=== PATIENT | male | born 1955 | race Caucasian/White ===

== ENCOUNTER 2019-12-25 14:10 | Inpatient (IN) | payer MEDICARE, OTHER ==
[~2019-12-25] VITALS: Ht 185.4 cm; Wt 165.6 kg
[2019-12-25] MEDS ORDERED: ADULT LOW DOSE81 MG PO (15:31)
--- NOTE | 2019-12-25 20:00 | NUR ---
TECHNOLOGY STRATEGIST ROUNDING NOTE. SOIL FERTILITY EXTENSION SPECIALIST PROVIDED PT WITH SNASarkisWHICH BOX. PT SITS INDEPENDENTLY AT BEDSIDE, REPORTS THAT HE DOES NOT NEED ASSISTANCE IN PREPARING SANDWHICH. PT IS THANKFUL, DENIES NEEDS. CALL LIGHT IN REACH. WHITE BOARD UDPATED.
--- NOTE | 2019-12-25 22:13 | NUR ---
Awakes easily, turn self in bed, On room air, receivd Solumedrol and Coreg scheduled med, med info given. Pt on aerolized precautions. gets nebs. Tolerating fluids well, no n/v, ate sandwich box, 100%. tolerated well, voiding small amounts of md yellow colored urine in urinal, no c/o pain at this time.
--- NOTE | 2019-12-26 03:14 | NUR ---
RESTING, NO DISTRESS, TURNS SELF IN BED
--- NOTE | 2019-12-26 03:52 | NUR ---
resting, no distress, turns self in bed, on contact-aerosol precautions. call light at bedside
--- NOTE | 2019-12-26 06:28 | NUR ---
Pt slept all shift, on room air, coarse lung sounds auscultated, pt on aerosl/contact precautions, waiting on covid results. pt gets Solumedrol IV. voiding QS and tolerating QS fluids, filed start iv sl pulled accidentally by pt. elise L ac statrted in ED pt. edema of le no changes. pt morbidlyobese. stated he feels so myuch better as he walked to br w/o getting sob. bariatric bed ordered, waiting for delivery. pt alert and oriented
--- NOTE | 2019-12-26 06:45 | NUR ---
pt called to say new beriatric bed was too high, when in to see if I could lower it, bed seemed as low as it could go, charge nurse will follow up and see what she could do, left pt to relax in the chair for the time being
--- NOTE | 2019-12-26 07:42 | NUR ---
BEDSIDE REPORT RECEIVED. PT AWAKE USING URINAL DENIES NEEDS.
--- NOTE | 2019-12-26 09:00 | NUR ---
PT C/O SOB ASSISTED UP TO THE CHAIR FROM LAYING IN BED. SATS 92% ON ROOM AIR. PT AGREES HE IS BREATHING BETTER AGREES A NEB TREATMENT MAY BE HELPFUL. PO MEDICATIONS ADMINISTERED PT IS TALKING AND IN NO DISTRESS. R/T ARRIVES AND ADMINISTERES NEB
--- NOTE | 2019-12-26 09:55 | NUR ---
IN ROOM WITH PATIENT. WILL RETURN LATER.
--- NOTE | 2019-12-26 10:23 | NUR ---
PATIENT SITTING IN CHAIR. PATIENT SLIGHTLY IRRITATED THAT SO MANY PEOPLE WERE COMING INTO HIS ROOM. CALL LIGHT IN REACH. NO FURTHER NEEDS AT THIS TIME.
--- NOTE | 2019-12-26 12:59 | NUR ---
PT HAS REMAINED UP IN THE RECLINER THIS SHIFT. C/O NOT GETTING ALL THE FOOD HE WANTS. ASSISTED WITH DINNER ORDER, PT REQUESTS 2 FULL MEALS, 3 DESSERTS, DINNER ROLLS ETC ETC.... EDUCATION PROVIDED PT IS NOT RECEPTIVE.
--- NOTE | 2019-12-26 13:06 | NUR ---
PT ALERT, ORIENTED AND SITTING IN CHAIR WORKING ON COMPUTER. PT RECENTLY MOVED HERE TO BE NEAR FAMILY. PT THANKED ME FOR VISITING, REQUESTED PRAYER. LEFT A G POST
--- NOTE | 2019-12-26 14:20 | NUR ---
PATIENT IN CHAIR WATCHING TV. FRESH WATER GIVEN. CALL LIGHT IN REACH. NO FURTHER NEEDS AT THIS TIME.
[2019-12-26] MEDS ORDERED: DOXYCYCLINE HY100 MG PO (14:51)
[2019-12-26] MEDS ORDERED: NICOTINE PATCH1 EAC1 TD (14:51)
[2019-12-26] MEDS ORDERED: LISINOPRIL5 MG PO (14:52)
[2019-12-26] MEDS ORDERED: PROAIR HFA8.5 GM INH (14:52)
[2019-12-26] MEDS ORDERED: CARVEDILOL6.25 MG PO (14:52)
[2019-12-26] MEDS ORDERED: PREDNISONE20 MG PO (14:53)
--- NOTE | 2019-12-26 15:11 | NUR ---
DR AMATO IN TO SEE PT AGREES TO DC PER PT REQUEST.
--- NOTE | 2019-12-26 16:33 | EKG ---
[facility] [address] [facility] [place], [place] [address] Signed Sinus tachycardia with frequent premature ventricular complexes Anterolateral infarct , age undetermined Abnormal ECG Confirmed by MASOUD AMATO DO ([id number]) on 12/26/2019 4:33:24 PM Electronically Signed By: MASOUD AMATO DO 12/26/19 1633 PATIENT NAME: TY GAINES Electrocardiogram DATE OF : 55 PHYSICIAN: MASOUD AMATO DO REPORT #: [id number] REPORT IS CONFIDENTIAL AND NOT TO BE RELEASED WITHOUT AUTHORIZATION
--- NOTE | 2019-12-26 16:34 | EKG ---
[facility] [address] [facility] [place], [place] [address] Signed Sinus tachycardia Septal infarct (cited on or before 25-DEC-2019) Abnormal ECG When compared with ECG of 25-DEC-2019 14:15, (Unconfirmed) premature ventricular complexes are no longer present Confirmed by MASOUD AMATO DO ([id number]) on 12/26/2019 4:33:51 PM Electronically Signed By: MASOUD AMATO DO 12/26/19 1634 PATIENT NAME: TY GAINES Electrocardiogram DATE OF : 55 PHYSICIAN: MASOUD AMATO DO REPORT #: [id number] REPORT IS CONFIDENTIAL AND NOT TO BE RELEASED WITHOUT AUTHORIZATION
== END 2019-12-26 15:20 | disposition home or self-care (01) | DRG 189 ==
LOC: ED 14:10 → MS 17:34
PROVIDERS: ADMIT Student in an Organized Health Care Education/Training Program
DX: J96.01 Acute respiratory failure with hypoxia (principal); J44.1 Chronic obstructive pulmonary disease with (acute) exacerbation; I11.0 Hypertensive heart disease with heart failure; I50.9 Heart failure, unspecified; Z72.0 Tobacco use; Z79.82 Long term (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 aspirin; Z91.14 Patient's other noncompliance with medication regimen
CPT/HCPCS: 71045; 71260; 80048; 80053; 81001; 83605; 83735; 83880; 84484; 85025; 93005; 93010; 94640; 94660; 96374; 96375; 97162; 97165; 99285-25; C9803; J1650; J1940; J2930; Q9967

== ENCOUNTER 2019-12-28 03:57 | Inpatient (IN) | payer MEDICARE, OTHER ==
[~2019-12-28] VITALS: Ht 185.4 cm; Wt 165.6 kg
[~2019-12-28 03:57] MED LIST: ADULT LOW DOSE81 MG PO; CARVEDILOL6.25 MG PO; DOXYCYCLINE HY100 MG PO; LISINOPRIL5 MG PO; NICOTINE PATCH1 EAC1 TD; PREDNISONE20 MG PO; PROAIR HFA8.5 GM INH
--- OUTSIDE RECORDS SUMMARY | 2019-12-28 04:00 | XMS ---
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 - 2 Visits in 30 Days CARE PROVIDERS REHANA [facility] Current PHONE: [phone] Janki has no Care Guidelines for this patient. Jamel VISIT COUNT (12 MO.) 2 [facility] TOTAL 2 NOTE: Visits indicate total known visits. ED/UCC VISIT TRACKING (12 MO.) 12/28/2019 03:57 [facility] TYPE: Emergency COMPLAINT: - SOB/COUGH 12/25/2019 14:11 [facility] TYPE: Emergency COMPLAINT: - CHEST PAIN INPATIENT VISIT TRACKING (12 MO.) 12/25/2019 17:34 [facility] OR TYPE: Medical Surgical COMPLAINT: - HYPOXIA DIAGNOSES: - Patient's other noncompliance with medication regimen - Heart failure, unspecified - FPC (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 aspirin - Tobacco use - Acute respiratory failure with hypoxia - Hypertensive heart disease with heart failure - Heart failure, unspecified - Acute respiratory failure with hypoxia - Hypertensive heart disease with heart failure - Tobacco use - Patient's other noncompliance with medication regimen - 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
[2019-12-28] MEDS ORDERED: CHANTIX0.5 MG PO (11:14)
--- NOTE | 2019-12-28 14:38 | EKG ---
[facility] [address] [facility] [place] [address] Signed Normal sinus rhythm Septal infarct (cited on or before 25-DEC-2019) Abnormal ECG When compared with ECG of 25-DEC-2019 16:15, No significant change was found Confirmed by DAMON NEVILLE MD ([id number]) on 12/28/2019 2:38:35 PM Electronically Signed By: DAMON NEVILLE MD 12/28/19 1438 PATIENT NAME: TY GAINES Electrocardiogram DATE OF : 55 PHYSICIAN: DAMON NEVILLE MD REPORT #: [id number] REPORT IS CONFIDENTIAL AND NOT TO BE RELEASED WITHOUT AUTHORIZATION
--- NOTE | 2019-12-28 21:02 | PATH ---
[facility] [address] [facility] [place], [place] [address] Signed ORDERING PHYSICIAN: Elva Galvez MD PATIENT NAME: TY GAINES GENDER: Catherine : 1955 SPECIMEN(S): MOLECULAR PATHOLOGY RESULTS: SARS-CoV-2 Not Detected ADDITIONAL NOTES.: The [employer] Fusion SARS-CoV-2 Assay is a multiplex real-time PCR (RT-PCR) in vitro diagnostic test intended for the qualitative detection of RNA from SARS-CoV-2 from individuals who meet COVID-19 clinical and/or epidemiological criteria. In general, SARS-CoV-2 RNA can be detected during the acute phase of infection. Positive results indicate the presence of SARS-CoV-2 RNA. Clinical correlation with patient history and other diagnostic information is necessary to determine patient infection status. Positive results do not rule out bacterial infection or co-infection with other viruses. Negative results do not preclude SARS-CoV-2 infection and should not be used as the sole basis for patient management decisions. Negative results must be combined with other clinical observations, patient history, and epidemiological information. The [employer] Fusion SARS-CoV-2 Assay is not yet approved or cleared by the [place] FDA. When there are no FDA-approved or cleared tests available, and other criteria are met, FDA can make tests available under an emergency access mechanism called an Emergency Use Authorization (EUA). The EUA for this test is supported by the Needle Loom Operator of Health and Human Service's (HHS's) declaration that circumstances exist to justify the emergency use of in vitro diagnostics for the detection and/or diagnosis of the virus that causes COVID-19. This EUA will remain in effect for the duration of the COVID-19 declaration justifying emergency of IVDs, unless it is terminated or revoked by FDA, after which the test may no longer be used. The [employer] Fusion SARS-CoV-2 Assay is for use only under EUA in US laboratories certified under the Clinical Laboratory Improvement Amendments of 1988 (CLIA) to perform high complexity tests. [facility] is certified under CLIA to perform high complexity PATIENT NAME: TY GAINES PATHOLOGY DATE OF : 55 REPORT #: [id number] PHYSICIAN: JIA PATHOLOGY PCP: DANIELITO HIGHTOWER MD REPORT IS CONFIDENTIAL AND NOT TO BE RELEASED WITHOUT AUTHORIZATION [facility] [address] [place] [id number] Signed clinical laboratory testing. PERFORMING LABORATORY.: Molecular testing was performed by [facility] [place] [address] (Chief Knowledge Officer: Sanjeev Handy D.O.; CLIA#: [id number]) Diagnostician: System Interface Pathologist Electronically Signed 12/28/2019 Copies: ~ PATIENT NAME: TY GAINES PATHOLOGY DATE OF : 55 REPORT #: [id number] PHYSICIAN: JIA PATHOLOGY PCP: DANIELITO HIGHTOWER MD REPORT IS CONFIDENTIAL AND NOT TO BE RELEASED WITHOUT AUTHORIZATION
--- NOTE | 2019-12-29 16:11 | EKG ---
[facility] [address] [facility] [place], [place] [address] Signed Normal sinus rhythm with sinus arrhythmia Septal infarct (cited on or before 25-DEC-2019) Abnormal ECG When compared with ECG of 28-DEC-2019 04:10, No significant change was found Confirmed by DAMON NEVILLE MD ([id number]) on 12/29/2019 4:11:37 PM Electronically Signed By: DAMON NEVILLE MD 12/29/19 1611 PATIENT NAME: TY GAINES Electrocardiogram DATE OF : 55 PHYSICIAN: DAMON NEVILLE MD REPORT #: [id number] REPORT IS CONFIDENTIAL AND NOT TO BE RELEASED WITHOUT AUTHORIZATION
--- NOTE | 2019-12-30 06:10 | EKG ---
[facility] [address] [facility] [place], [place] [address] Signed Normal sinus rhythm Septal infarct (cited on or before 25-DEC-2019) Abnormal ECG When compared with ECG of 29-DEC-2019 14:13, (Unconfirmed) No significant change was found Confirmed by DAMON NEVILLE MD ([id number]) on 12/30/2019 6:10:45 AM Electronically Signed By: DAMON NEVILLE MD 12/30/19 0610 PATIENT NAME: TY GAINES Electrocardiogram DATE OF : 55 PHYSICIAN: DAMON NEVILLE MD REPORT #: [id number] REPORT IS CONFIDENTIAL AND NOT TO BE RELEASED WITHOUT AUTHORIZATION
[2020-01-02] MEDS ORDERED: PREDNISONE20 MG PO (12:09)
[2020-01-02] MEDS ORDERED: IPRAT-ALBUT 0.5-3 ML INH (12:10)
[2020-01-02] MEDS ORDERED: AEROECLIPSE II1 EACH MISC (13:36)
== END 2020-01-02 13:19 | disposition home or self-care (01) | DRG 191 ==
LOC: ED 03:57 → MS 03:58
PROVIDERS: ADMIT Internal Medicine
DX: J43.9 Emphysema, unspecified (principal); I47.2 Ventricular tachycardia; Z68.42 Body mass index [BMI] 45.0-49.9, adult; Z20.828 Contact with and (suspected) exposure to other viral communicable diseases; E66.01 Morbid (severe) obesity due to excess calories; F17.200 Nicotine dependence, unspecified, uncomplicated; I11.0 Hypertensive heart disease with heart failure; I50.9 Heart failure, unspecified; R07.9 Chest pain, unspecified; Z74.09 Other reduced mobility; Z91.14 Patient's other noncompliance with medication regimen; Z79.899 Other long term (current) drug therapy; Z79.82 Long term (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 aspirin; Z79.52 Long term (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 systemic steroids
CPT/HCPCS: 36415; 71045; 80048; 80053; 81001; 82803; 83735; 83880; 84484; 85025; 93005; 93010; 93306; 94640; 94644; 94664; 94667; 94668; 94760; 96374; 99285-25; 99406; A9270; C9803; J1650; J2060; J2270; J2920

== ENCOUNTER 2021-09-07 15:04 | Inpatient (IN) | payer MEDICARE ==
[~2021-09-07] VITALS: Ht 185.4 cm; Wt 168.3 kg
[~2021-09-07 15:04] MED LIST changes: +AEROECLIPSE II1 EACH MISC; +CHANTIX0.5 MG PO; +IPRAT-ALBUT 0.5-3 ML INH
--- NOTE | 2021-09-07 18:47 | NUR ---
PATIENT ADMITTED TO CCU VIA STRETCHER FROM ER AT 1810 FOR A COPD EXAC. PT ARRIVES ON BIPAP OF 18/8 AND 28%. PT ABLE TO PIVOT SELF FROM STRETCHER AND SIT ON CCU BED. PT DOES HAVE TO MOVE SLOWLY DUE TO SOB. LUNG SOUNDS REVEAL EXP WHEEZING THROUGHOUT AND DIMINISHED NOISES. PT HAS NOTABLE 2+ EDEMA IN LOWER LEGS. PT TO RECEIVE IV VIBRAMYCIN. BPs ELEVATED ON ADMIT AND DR. NEVILLE NOTIFIED. PT STATES HE HASN'T BEEN TAKING HIS COREG IN THE LAST COUPLE OF MONTHS DUE TO FINANCIAL DIFFICULTIES. PT STATES HE LIVES ALONE. PT ATTEMPTS TO EAT BUT IS TOO SHORT OF BREATH TO HAVE BIPAP OFF FOR MORE THAN 2 MINUTES AT A TIME. CALL LIGHT WITHIN REACH AND PLANOF CARE DISCUSSED.
--- NOTE | 2021-09-07 20:00 | NUR ---
ARRIVED TO SHIFT, RECIEVED REPORT FROM DAY SHIFT, FOCUSED ASSESSMENT COMPLETED, MEDS, LABS, AND ORDERS REVIEWED, HEAD TO TOE ASSESSMENT COMPLETED, DR NEVILLE CALL PREVIOUSLY TO REQUEST A NICOTINE PATCH FOR PT, RT IN WITH PT, PT ABLE TO MAINTAIN OXYGEN SATURATION ON 5 LPM 02 VIA NASAL CANNULA HOWEVER APPEARS ANXIOUS AND REQUESTING HIGHER AIR FLOW. EDUCATIONS PROVIDED TO PT FROM RN AND RT REGARDING OXYGEN REQUIREMENTS AND MEDICAITONS
--- NOTE | 2021-09-07 21:46 | NUR ---
PT CALLED REQUESTING BREATHING TREATMENT, RT NOTIFIED, PT STATES HE IS UNABLE TO SLEEP IN THE BED IS AND NEEDS TO SIT UP MORE IN ORDER TO FEEL LIKE HE CAN BREATHE. PT CURRENTLY SITTING ON EDGE OF BED AND LEANING OVER ON BEDSIDE TABLE.
--- NOTE | 2021-09-07 23:15 | NUR ---
PT RESTING ON SIDE OF BED, RN ASKED PT IF HE WANTED ASSISTANCE FINDING A MORE COMFORTABLE POSITION IN BED. PT REFUSED, STATES THIS IS THE ONLY WAY HE FEELS COMFORTABLE. ADDITIONAL PILLOWS PROVIDED FOR BEDSIDE TABLE TO HELP PT POSITION SELF COMFORTABLY.
--- NOTE | 2021-09-08 01:45 | NUR ---
PT SITTING UP IN BED, REQUESTING FOOD, PUDDING OFFERED TO PT, PT ATE 100% OF IT. TOLERATED BEING ON NASAL CANNULA AND OXYMASK WHILE EATING WELL
--- NOTE | 2021-09-08 02:41 | NUR ---
PT REMAINS ON OXYMASK AND NASAL CANNULA, MULTIPLE REQUESTS FOR SNACKS, PT ABLE TO EAT THEM WITHOUT ISSUE, SIDE RAIL X 3 RAISED, CALL LIGHT WITHIN REACH
--- NOTE | 2021-09-08 02:50 | NUR ---
PT PLACED BACK ON BIPAP
--- NOTE | 2021-09-08 03:24 | NUR ---
PT REQUESTING ANOTHER SNACK, TAKEN OFF BIPAP AND PLACED ON NASAL CANNULA/OXYMASK COMBO, VANILLA PUDDING PROVIDED
--- NOTE | 2021-09-08 04:13 | NUR ---
PT PLACED BACK ON BIPAP AND GIVEN WARM BLANKETS
--- NOTE | 2021-09-08 05:53 | NUR ---
PT TOOK OFF BIPAP, EDUCATED TO PLEASE CALL PRIOR TO TAKING OFF UNLESS FOR EMERGENCY SUCH VOMITTING. PT PLACED ON NASAL CANNULA AND OXYMASK COMBO
--- NOTE | 2021-09-08 06:13 | NUR ---
PT HAD UNEVENTFULL NIGHT, WAS ABLE TO VOID BY SELF TO BSC, TOLERATED BIPAP AND NASAL CANNULA/OXYMASK COMBO WELL. INCREASED OXYGEN NEEDS AT THIS TIME ARE PARTLY FOR PATIENT COMFORT/PEACE OF MIND. WILL ATTEMPT TO TITRATE DOWN ONCE PT IS LESS ANXIOUS AND ABLE TO TOLERATE BETTER. PT STILL HAS WHEEZES HOWEVER SOUNDS SIGNIFICANTLY BETTER THAN AT THE START OF MY SHIFT. BREAKFAST WAS ORDERED, LABS REVIEWED, MEDS GIVEN PER JUL, PT SITTING ON SIDE OF BED COMFORTABLY WITH NASAL CANNULA/OXYMASK COMBO, CALL LIGHT WITHIN REACH, AWAITING DAY SHIFT TO GIVE REPORT
[2021-09-08] MEDS ORDERED: VENTOLIN HFA18 GM INH (07:31)
--- NOTE | 2021-09-08 08:30 | NUR ---
IN PT ROOM AFTER RECEIVING REPORT AND TO PERFORM MORNING ASSESSMENT. PT IS SITTING UP IN BED ON LAPTOP. PT FEELING NAUSEOUS BECAUSE HE IS SO HUNGRY, BROUGHT A DIET SPRITE WHICH RELIEVED NAUSEA. PT RR 18 AND WHEEZES PRESENT IN LUNGS UPPER AND LOWER BILAT. PT HAS NC ON RUNNING AT 5 L AND USES OXYMASK PRN. PULSES PRESENT RADIALLY BUT NOT PEDAL DUE TO SWELLING. SKIN IS DRY BUT WARM. PT OXYGEN REMAINS IN 90'S ON NC. D5 1/2 NS RUNNING AT 75 ML/HR IN PATENT LAC. PT SITTING UP IN BED WAITING FOR BREAKFAST, CALL LIGHT WITHIN REACH, WILL CONTINUE TO MONITOR.
--- NOTE | 2021-09-08 10:16 | NUR ---
ASSISTED PT TO USE URINAL, VOIDED 120 ML INTO BEDSIDE COMMODE. PT USED OYMASK AND NC WHILE URINATING DUE TO SOB. PT IS NOW RESTING IN BED AND REQUESTS TO USE BIPAP. O2 SATS READ 100% AND RR 21. CALL LIGHT IS WITHIN REACH, WILL CONTINUE TO MONITOR.
--- NOTE | 2021-09-08 11:55 | NUR ---
CASE MANAGEMENT IN SPEAKING WITH PT. PT CURRENTLY WEARING NC ON 5 L AND OXYMASK ON AT 15 L. GAVE REPORT TO [facility] NURSE, PT IS TRANSFERRING TO FLOOR. PT IS SALINE LOCKED, ON TELEMETRY, AND PERSONAL ITEMS ARE ON TABLE. PT WILL BE TRANSFERRED IN BED.
--- NOTE | 2021-09-08 12:15 | NUR ---
Patient arrived from the unit, VSS, arrived with 5L BNC with 15l Oxymask. Assessment completed, VSS, patient requested the oxymask only at this time. Friend Rajwinder at bedside requesting MD if available. Notified MD and she will as soon as she can.
--- NOTE | 2021-09-08 15:00 | NUR ---
ROUNDED ON PATIENT, HE IS ASLEEP. WILL WAIT TO GIVE MEDICATIONS TILL HE WAKES. RESPIRATION AT 20, APPEARS TO BE IN NO ACUTE DISTRESS AT THIS TIME.
--- NOTE | 2021-09-08 15:00 | NUR ---
patient laying on his left side, requesting for his room temperature to be lowered. lowered temp to 69 per the patient's request. Lights are off, and he is requesting to rest at this time.
--- NOTE | 2021-09-08 17:51 | NUR ---
ANTIBIOTIC STARTED, NEW TUBING. PATIENT ON THE COMPUTER, IN NO ACUTE DISTRESS.
--- NOTE | 2021-09-08 18:11 | NUR ---
PATIENT EATING DINNER AT THIS TIME, HE COMPLETED HIS AA MEETING ONLINE, AND IS VERY APPRECIATIVE OF THE INTERNET TO BE ABLE TO DO SO.
--- NOTE | 2021-09-08 18:30 | NUR ---
patient up to the bathroom, urinated x1, oxygen needed on return.
--- NOTE | 2021-09-08 19:45 | NUR ---
REPORT RECEIVED FROM СЕРГЕЙ ROACH. pt SITTING UP AT SIDE OF BED. ON RA. COMPLAINS OF SOME SOB AFTER AMBULATING BACK FROM RESTROOM, REFUSES OXYGEN USE AT THIS TIME. HR SR ON TELE 7. CALL LIGHT IN REACH. IV SL BY СЕРГЕЙ ROACH AT THIS TIME.
--- NOTE | 2021-09-08 19:50 | NUR ---
2 CHOCOLATE PUDDING PROVIDED.
--- NOTE | 2021-09-08 20:00 | NUR ---
SBA. PATIENT REFUSED TO HAVE SOCKS ON AND O2 ON GOING TO THE BATHROOM. WHEN PATIENT WAS BACK IN BED HE STATED I NEED TO PUT THE MASK ON ON 2L. AFTER A MINUTE AND A HALF HE TOOK IT OFF OF HIS FACE STATED I AM OKAY NOW. LUCILLE RUSHING NOTIFIED.
--- NOTE | 2021-09-08 21:40 | NUR ---
SBA TO THE BATHROOM WITH O2 ON. PATIENT IS BACK IN BED SITTING AT THE EDGE OF THE BED. VANILLA PUDDING PROVIDED PER REQUEST.
--- NOTE | 2021-09-08 22:25 | NUR ---
pt RESTING IN BED AWAKE. SPO2 93% ON RA AFTER AMBULATING TO RESTROOM. pt INSISENT ON MORPHINE ADMINISTRATION FOR SOB "IT REALLY HELPED ME REST, I CAN'T SLEEP WHEN I CAN'T BREATHE". RT BERNARD RECOMMENDED PRN MORPHINE ADMINISTRATION. MEDICATION ADMINISTERED AT THIS TIME. PRN SLEEP MEDICATION ADMINISTERED. ASSESSMENT COMPLETE. pt REQUESTING TOE NAILS CLIPPED. EDUCATED pt ON HOSPITAL POLICY, INFECTION PREVENTION. PUDDING PROVIDED REQUESTED. LIGHTS OFF IN ROOM. CALL LIGHT IN REACH.
--- NOTE | 2021-09-08 23:32 | NUR ---
COMMITTEE MEMBER IN ROOM. pt CONTINUES TO COMPLAIN THAT MEDICATIONS ARE NOT HELPING HIM SLEEP. PHONE CALL TO MD. TELEPHONE ORDER RECEIVED AND REPEATED BACK. EMAR UPDATED.
--- NOTE | 2021-09-08 23:47 | NUR ---
pt SITTING UP AT SIDE OF BED. SCHEDULED SLEEP MEDICATION ADMINISTERED, EDUCATION PROVIDED. pt DENIES ADDITIONAL NEEDS. CALL LIGHT IN REACH.
--- NOTE | 2021-09-09 00:46 | NUR ---
CALL LIGHT ANSWERED. 1PA TO ASSIST pt WITH LEGS OUT OF HOSPITAL BED, INDEPENDENT TO RESTROOM FOR VOID. TITRATED OXYGEN TO 6L NC WITH AMBULATION. pt BACK IN BED. LABORED BREATHING NOTED. OXYGEN TITRATED BACK TO 2L AT REST. CALL LIGHT IN REACH.
--- NOTE | 2021-09-09 02:00 | NUR ---
SANDWICH BOX PROVIDED BY ALEJANDRO RUSHING. pt SITTING UP IN BED AWAKE. ON RA. NO DISTRESS NOTED.
--- NOTE | 2021-09-09 02:15 | NUR ---
PT CALLED, NEEDED TO USE BATHROOM. WANTED RN TO "PULL HIM UP OUT OF BED", SUGGESTED OTHER WAYS TO GET SELF OUT OF BED, THIS RN WAS UNABLE TO PULL HIM UP. USED THE BEDSIDE STAND, HE LEANED AGAINST IT AND WAS ABLE TO GET SELF TO SETTING POSITION. RESTED, USED NC TO AMBULATE TO BATHROOM. VOIDED, UNMEASURED, BACK TO BED, NC IN PLACE, HE NOTICED THE BEDSIDE TABLE WAS AWAY FROM HIM, SAID OH NO YOU DON'T, AND PULLED TABLE BACK TOWARD HIS BED, AND THIS RN ASKED IF HE WANTED TO SIT ON EDGE OF BED FOR A BIT, HE SAID YES. THIS RN LEFT ROOM, CALL LIGHT WITHIN REACH, PT WAS SL LABORED BREATHING, STATED HE NEEDED TO SIT AND THEN WILL GET INTO BED.
--- NOTE | 2021-09-09 02:30 | NUR ---
HEARD LOUD VOICE OUT OF ROOM 113, PT SITTING ON EDGE BREATHING LABORED, OXIMASK PLACED, TURNED TO WHERE "PT COULD FEEL THE AIR COMING OUT", SATS 100%, SAT WITH PT, THEN PT REQUESTED RT. THIS RN LEFT ROOM AND CALLED RT, AND REPORTED TO PT PRIMARY RN DOMINGO, THAT PT WAS HAVING SOB. RN BACK INTO PT ROOM, SAT WITH HIM, AND AFTER A MIN OR SO HE SAID "TURN THAT DOWN, I DON'T WANT MY LUNGS TO BLOW UP. EDUCATED THAT THE OXIMASK WOULD NOT CAUSE HIS LUNGS TO "BLOW UP", BUT OXIMASK TURNED DOWN, PER HIS REQUEST.
--- NOTE | 2021-09-09 02:40 | NUR ---
NOTIFIED BY SEO EXECUTIVE THAT pt SOB AFTER AMBULATING TO RESTROOM. LABORED BREATHING NOTED. pt SITTING UP AT SIDE OF BED ON 2L OXYGEN BY NC WHEN RN ENTERS ROOM. SPO2 100%. PRN MORPHINE ADMINISTERED AT THIS TIME. RT BERNARD CALLED BY SEO EXECUTIVE AND IN ROOM. PULSE OX REAPPLIED BY SEO EXECUTIVE. RESPIRATORY CALLS CHOKER SETTER DOLORES INTO ROOM. RESPIRATORY INSTRUCTING pt TO DISCUSS FRUSTRATIONS WITH CARE IN FRONT OF pt THIS RN AND HOUSEKEEPING MANAGER. pt EDUCATED ON NURSING CARES BY THIS RN AND pt GOALS OF INDEPENDENCE. RT INSTRUCTS THIS RN AND NURSING STAFF NOT TO TOUCH "HIS RESPIRATORTY PATIENT'S OXYGEN". TO CALL BEFORE pt OUT OF BED FOR ANY REASON, CHOKER SETTER RN AGREES TO PLAN OF CARE. RT REMAINS IN ROOM. pt NOW ON ROOM AIR, SPO2 89% WHILE pt TALKING RN LEAVES ROOM.
--- NOTE | 2021-09-09 04:53 | NUR ---
PATIENT STATES HE USES WALKER AT HOME TO GET UP AND DOWN AND MOVE THROUGHOUT THE HOUSE. USES SCOOTER FOR OUT OF HOUSE ACTIVITIES. PATIENT STATES HE WOULD LIKELY NOT NEED HELP HERE IF HE HAD A WALKER. QUESTION THAT WE NEED TO DETERMINE IS WILL HE NEED O2 AT HOME AND IF SO HOW MUCH AT REST AND HOW MUCH WITH AMBULATION.
--- NOTE | 2021-09-09 06:22 | NUR ---
pt SLEEPING, AWAKENS TO VOICE FOR VS. VSS. IV SITE FLUSHED WNL. SCHEDULED MEDICATION ADMINISTERED. pt POPS OUT OUT OF BED QUICKLY. INDEPENDENT TO RESTROOM. pt DOES NOT WAIT FOR RN TO TITRATE OXYGEN. OXYGEN TITRATED TO 6L WITH AMBULATION. BACK TO 2L OXYGEN BY NC. pt SAT AT SIDE OF BED FOR A MINUTE TO CATCH BREATH. INDEPENDENTLY GETS SELF BACK IN BED. IV ANTIBIOTIC INFUSING WNL. ASSESSMENT COMPLETE. WHEEZES AUSCULTATED THROUGHOUT LUNG LOBES, pt OFFERED BREATHING TREATMENT, REFUSES. REQUESTING TO SLEEP. CALL LIGHT IN REACH.
--- NOTE | 2021-09-09 07:11 | NUR ---
shift report completed. patient sleeping at this time. respiration at 21, no acute distress noted.
--- NOTE | 2021-09-09 07:55 | NUR ---
PATIENT ANXIOUS, FLUSHED, SOB, WHEEZY, TACYPENIC. PATIENT ASSESSED VSS OXYGEN INCREASED TO AMBULATED TO THE BATHROOM THE RESUME TO 2 L. RESP. THERAPY HERE TO DO A TREATMENT WELL. BREATHING TECHNIQUES RETAUGHT, LOTS OF ENCOURAGEMENT GIVEN.
--- NOTE | 2021-09-09 08:28 | EKG ---
[facility] [address] [facility] [place] [address] Signed Sinus tachycardia with premature atrial complexes Left axis deviation Anteroseptal infarct (cited on or before 25-DEC-2019) Abnormal ECG When compared with ECG of 29-DEC-2019 15:47, premature atrial complexes are now present QRS axis shifted left Questionable change in initial forces of Anterior leads Confirmed by DAMON NEVILLE MD ([id number]) on 09/09/2021 8:28:43 AM Electronically Signed By: DAMON NEVILLE MD 09/09/21 0828 PATIENT NAME: TY GAINES Electrocardiogram DATE OF : 55 PHYSICIAN: DAMON NEVILLE MD REPORT #: [id number] REPORT IS CONFIDENTIAL AND NOT TO BE RELEASED WITHOUT AUTHORIZATION
--- NOTE | 2021-09-09 09:40 | NUR ---
I/OS COMPLETED, VS COMPLETED, PATIENT STATUS HAS IMPROVED HE IS MUCH MORE RELAXED BREATHING HAS IMPROVED DECREASED WHEEZING OXYGEN LEVEL 90-92 ON ROOM AIR
--- NOTE | 2021-09-09 09:44 | NUR ---
PATIENT SITTING UP ON EDGE OF BED AT THIS TIME. PATIENT LOOKING IN PERSONAL BELONGINGS BAG FOR CHARGING CORD AND CAN'T FIND IT. PATIENT ACCUSED SOMEONE OF GETTING INTO HIS BAG. THIS TELECOMMUNICATIONS CLERK HELPED PATIENT LOOK FOR CORD AND CORD WAS ALREADY PLUGGED INTO WALL AND WRAPPED AROUND BED RAIL. PATIENT SAID THAT WAS THE CORD HE WAS LOOKING FOR BUT HE DOES NOT REMEMBER HAVING ANYONE TAKE IT OUT. PATIENT IS GOOD NOW KNOWING CORD IS IN ROOM. CALL LIGHT IN REACH. NO FURTHER NEEDS AT THIS TIME.
[2021-09-09] MEDS ORDERED: IPRAT-ALBUT 0.5-3 ML INH (09:56)
[2021-09-09] MEDS ORDERED: NICOTINE1 EAC2 TOP (10:02)
--- NOTE | 2021-09-09 11:20 | NUR ---
Spoke with Harris. He states he lives in an apartment and has an elevator and a ramp. He also has an electric heavy duty scooter which he uses for his transportation. He states he is able to manage well and get to the grocery store, pharmacy, and Dr. wiley. Pt is aware he needs sleep study and states he has had one in the past. He would like to discharge to home today as he has a friend arriving who will assist him. RT has come into the room during our conversation and both of us discourage pt from leaving too soon. He agrees to wait until tomorrow. We also discussed he would like to complete a POA with his friend Rajwinder Jauregui [phone]. I will contact our notary and see when she would be available and when Rajwinder is in town. Pt denies other need He did discuss oxygen with Oz from RT and feels he may need to start using. He states he has not been able to walk well and has been very sob x 2 weeks.
--- NOTE | 2021-09-09 12:45 | NUR ---
PATIENT SITTING EDGE OF BED, IN NO ACUTE DISTRESS ON HIS LAPTOP, NO NEEDS AT THIS TIME.
[2021-09-09] MEDS ORDERED: DOXYCYCLINE HY100 MG PO (13:57)
[2021-09-09] MEDS ORDERED: INDERAL LA160 MG PO (13:58)
[2021-09-09] MEDS ORDERED: NICOTINE PATCH1 EACH TD (13:58)
[2021-09-09] MEDS ORDERED: PREDNISONE10 MG PO (13:59)
[2021-09-09] MEDS ORDERED: BROVANA15 MCG/2 M INH (14:01)
--- NOTE | 2021-09-09 14:10 | NUR ---
PT ALERT, ORIENTED AND SITTING ON SIDE OF BED WITH COMPUTER. HAD GOOD VISIT, PT SHARED HIS YAW BELIEFS. FEELING BETTER THAN WHEN HE CAME IN. PT HAD VISITOR COME IN, GAVE BLESSING AND WILL FOLLOW
--- NOTE | 2021-09-09 14:30 | NUR ---
REASSESSED BREATHING STATUS, VS COMPLETED, I/OS COMPLETED. ANXIETY, TACHYPNEA, FLUSHNESS HAVE ALL IMPROVED.
--- NOTE | 2021-09-09 16:42 | NUR ---
Received 02 qualifier from RT. Pt will need 3l with activity. Pt had requested 02 from [facility] if needed as this is where his other DME is from. Faxed face sheet, rx, H&P, 02 qualifier to [facility].
--- NOTE | 2021-09-09 17:23 | NUR ---
PATIENT UP TO BATHROOM, SBA AND BACK TO SITTING UP ON EDGE OF BED, VISITOR IN ROOM. VITALS AND I&O'S CHARTED. CALL LIGHT IN REACH. NO FURTHER NEEDS AT THIS TIME.
--- NOTE | 2021-09-09 17:39 | NUR ---
iv ANTIBIOTICS STARTED, IV ACCESS FLUSHES AND HAS A POSITIVE BLOOD RETURN. PATIENT REQUESTING NOT TO BE DISTURBED UNTIL AFTER 1900 DUE TO A MEETING HE WILL BE IN ON HIS COMPUTER.
--- NOTE | 2021-09-09 18:46 | NUR ---
Patient started the shift off with a respitory rate of 28, wheezy throughout, flushed skin, increased anxiety. After breathing treatment, coaching on his breathing, his respitory status resumed to what is normal for him. He had a visitor for most of the day, which helped as well. He is requesting to go home in the morning, but as the day went on he understands that he needs to make sure the proper services are in place prior to rushing home. He only needs oxygen for comfort related to air hunger, he does need his nebulizer treatments on a regular basis to assist with the wheezing. He should be discharge within the next 1-3 days I believe.
--- NOTE | 2021-09-09 19:53 | NUR ---
REPORT RECEIVED FROM DAY SHIFT RN. PT SITTING ON SIDE OF BED ALERT AND ORIENTED. DENIES NEEDS AT THIS TIME. WHITE BOARD UPDATED. CALL LIGHT IN REACH.
--- NOTE | 2021-09-09 21:11 | NUR ---
PT CALLED, THIS RN SPOKE TO PT FROM DOORWAY, PT SITTING ON EDGE OF BED, LOOKING OUT THE WINDOW, STATES HIS BACK WENT "OUT" WOULD LIKE SOMETHING FOR PAIN, DENIED NEED FOR RT, DID SAY HE HAD SOME SOB BUT IT HAD GOTTEN BETTER. NOTIFIED PT PRIMARY RN.
--- NOTE | 2021-09-09 22:30 | NUR ---
EVENING ASSESSMENT COMPLETE. SCHEDULED MEDS ADMINISTERED PER EMAR. IV IN LEFT AC LEAKING. DC'D WNL. TIP INTACT. NEW PIV PLACED BY STUDENT NURSE. PT NITISH WELL. PRN FOR 9/10 BACK PAIN ADMIN. PT REPORTS INTERMITTENT SOB. 3L/NC IN PLACE AT THIS TIME. ASSISTED PT TO REPOSITION FOR COMFORT. PT DENIES FURTHER NEEDS. CALL LIGHT IN REACH.
--- NOTE | 2021-09-10 00:23 | NUR ---
PT AWAKE SITTING UP IN BED ON PERSONAL COMPUTER. DENIES NEEDS. REPORTS BACK PAIN IMPROVED AFTER PRN ADMIN. REPORTS BREATHING "OK". 3L/NC IN PLACE. RESPIRATIONS EVEN. CALL LIGHT IN REACH.
--- NOTE | 2021-09-10 03:27 | NUR ---
PT SITTING ON SIDE OF BED ON COMPUTER. DENIES SOB BUT REPORTS FEELING "TIGHT" IN HIS CHEST AREA. LUNGS DIM WITH SCATTERED WHEEZE THROUGHOUT. PT ON RA AT THIS TIME. SpO2 93%. HR 70'S. RT IN ROOM FOR BREATHING TX. COFFEE AND CRACKERS PROVIDED. NO FURTHER NEEDS. CALL LIGHT IN REACH.
--- NOTE | 2021-09-10 06:06 | NUR ---
PT IN BED WITH EYES CLOSED. VS AND I&O COMPLETE. SpO2 91% ON RA. PT DENIES SOB. LAB IN ROOM FOR MORNING DRAW. PT DENIES NEEDS.
--- NOTE | 2021-09-10 07:34 | NUR ---
shift report completed outside the patient room to allow the patient uninterrupted rest. Per the previous shift he just fell asleep about 0600, which means he has only had about 4-5 hour sleep in the past 48 hr. per the nurse and chart he needed morphine x 1 for air hunger during the night, and did get his nebulizer regularly.
--- NOTE | 2021-09-10 08:20 | NUR ---
Assessment completed, updated the patient on upcoming discharge and answered his question to the best of her ability.
--- NOTE | 2021-09-10 09:21 | NUR ---
PATIENT GIVEN PRN ALBUTEROL NEB, RT IS CURRENTLY UNAVAILABLE.
--- NOTE | 2021-09-10 09:51 | NUR ---
am medication given, pharmacy at the bedside updated medications as well.
[2021-09-10] MEDS ORDERED: LISINOPRIL5 MG PO (10:10)
--- NOTE | 2021-09-10 10:10 | NUR ---
Called and spoke with Sameera. They received orders, ask I call Isidro as he is enroute for delivery time. Spoke with pt and he feels he can walk from a taxi to his entrance to his apartment. He has an elevator. Gave him the phone number for the nonemergent EMS and let him know to call and they will assist him into his appartment if he cannot make it. Called and spoke with Isidro from [facility] [place]. He states he is here delivering a walker to another pt and has a small tank for pt to dc to home. Met Isidro in pts room. Pt is working with pharmacy and nurses. I spoke with the van and they will transport to the door,but not assist in . pt would prefer to go by taxi.
--- NOTE | 2021-09-10 10:48 | NUR ---
MED REC COMPLETE
--- NOTE | 2021-09-10 10:50 | NUR ---
Called jasmin and and they will pick pt up in the next 10-15 min. Texted Isidro and he will meet pt at his home to set up 02. Pt denies other needs.
--- NOTE | 2021-09-10 11:21 | NUR ---
PATIENT DISCHARGED HOME, iv ACCESS WAS REMOVED, INSTRUCTIONS DISCUSSED AND GIVEN TO THE PATIENT. OXYGEN TANK AND PATIENTS [employer] WENT WITH THE PATIENT.
== END 2021-09-10 11:10 | disposition home or self-care (01) | DRG 189 ==
LOC: ED 15:04 → CCU 17:53 → MS 17:53
PROVIDERS: ADMIT Internal Medicine; ATTEND Internal Medicine
DX: J96.21 Acute and chronic respiratory failure with hypoxia (principal); E66.2 Morbid (severe) obesity with alveolar hypoventilation; Z68.42 Body mass index [BMI] 45.0-49.9, adult; Z20.822 Contact with and (suspected) exposure to COVID-19; I50.9 Heart failure, unspecified; I11.0 Hypertensive heart disease with heart failure; Z79.82 Long term (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 aspirin; J43.9 Emphysema, unspecified; R07.89 Other chest pain; Z88.9 Allergy status to unspecified drugs, medicaments and biological substances; Z91.038 Other insect allergy status; Z87.891 Personal history of nicotine dependence; Z90.49 Acquired absence of other specified parts of digestive tract; Z98.890 Other specified postprocedural states; Z79.899 Other long term (current) drug therapy
CPT/HCPCS: 36415; 71045; 80048; 80053; 82803; 83880; 84484; 85025; 85379; 87502; 93005; 93010; 94640; 94660; 94667; 94668; 94760; 94761; 96374; 97161; 97165; 99285-25; C9113; C9803; J1650; J2270; J2920; J2930; J7042; J7512; U0003

== ENCOUNTER 2021-09-10 21:14 | Inpatient (IN) | payer MEDICARE ==
[~2021-09-10] VITALS: Ht 185.4 cm; Wt 168.6 kg
[~2021-09-10 21:14] MED LIST changes: +BROVANA15 MCG/2 M INH; +INDERAL LA160 MG PO; +NICOTINE PATCH1 EACH TD; +NICOTINE1 EAC2 TOP; +PREDNISONE10 MG PO; +VENTOLIN HFA18 GM INH
--- OUTSIDE RECORDS SUMMARY | 2021-09-10 21:22 | XMS ---
PreManage Notification: YT GAINES Security Tax Compliance Officer Events No recent Security Events currently on file CRITERIA MET - [facility] - 2 Visits in 30 Days CARE PROVIDERS REHANA [facility] Current PHONE: Unknown DANIELITO [facility] 12/29/2019-Current PHONE: [phone] Janki has no Care Guidelines for this patient. Care History Medical/Surgical 01/04/2020 [facility] - PATIENT RECVD NEBULIZER MEDICATION TODAY 01/04/2020. - NEBULIZER MACHINE WILL BE RECEIVED ON Thursday01/06/2020 AND PATIENT WILL BE SHOWN HOW TO USE THE NEBULIZER MACHINE. - PATIENT RECEIVED HIS HEAVY DUTY WALKER ON Thursday01/03/20. E.D. VISIT COUNT (12 MO.) [address] [facility] TOTAL 2 NOTE: Visits indicate total known visits. ED/UCC VISIT TRACKING (12 MO.) 09/10/2021 21:15 [facility] TYPE: Emergency COMPLAINT: - DIFFICULTY BREATHING 09/07/2021 15:05 [facility] TYPE: Emergency COMPLAINT: - CHEST PAIN INPATIENT VISIT TRACKING (12 MO.) 09/07/2021 17:53 [facility] OR TYPE: Medical Surgical COMPLAINT: - ACUTE ON CHRONIC HYPOXIC RESPIRATORY FAILURE [id number]
--- NOTE | 2021-09-11 01:22 | NUR ---
PATIENT ARRIVED TO THE FLOOR VIA STRETCHER. PATIENT ASSISTED TO HOSPITAL BED BY STAFF. PATIENTS VITLAS TAKEN AND RECORDED. PATIENT PLACED ON BIPAP PER RT. PATIENT OPENS EYES TO STAFF BUT DOES NOT ANSWER QUESTIONS. CALL LIGHT IN REACH. BED ALARM ON FOR SAFETY.
--- NOTE | 2021-09-11 02:05 | NUR ---
PT IN BED WITH BIPAP IN PLACE. REPORTS SOB. LABORED BREATHING NOTED. PRN FOR SOB ADMIN PER EMAR. SCHEDULED MEDS ADMIN PER EMAR. PT ALERT AND ORIENTED. DROWSY BUT RESPONDS TO QUESTIONS AND COMMANDS. ASSESSMENT COMPLETE. SCATTERED WHEEZES HEARD THROUGHOUT. TELE #1 PLACED WITH CPOX. SpO2 95-98%. HR 90'S. PT UP TO BSC WITH 2PA TO STAND AND VOID. PT WEAK. BACK TO BED, NITISH WELL. PT DENIES QUESTIONS OR CONCERNS AT THIS TIME. PT ORIENTED TO ROOM AND NURSE CALL LIGHT. BED ALARM FOR SAFETY. CALL LIGHT IN REACH.
--- NOTE | 2021-09-11 03:16 | NUR ---
CALL LIGHT ANSWERED. 2PA TO VOID IN BSC. PT BACK TO BED, NITISH WELL. BIPAP REMAINS IN PLACE. SpO2 95%. HR 90'S. BED ALARM FOR SAFETY. CALL LIGHT IN REACH.
--- NOTE | 2021-09-11 05:30 | NUR ---
CALL LIGHT ANSWERED. PT UP TO SIDE OF BED TO VOID WITH 2PA. GAIT STEADY. PT WEAK DUE TO RESPIRATORY DEMANDS. BIPAP IN PLACE DURING TRANSFER. PT REQUEST TO SIT ON SIDE OF BED. CALL LIGHT IN REACH. BED ALARM FOR SAFETY.
--- NOTE | 2021-09-11 12:40 | NUR ---
Spoke with Harris as he has returned in less than 24 hours. Discussed what happened. He states the taxi took him home and he was able to walk into his building with his portable 02. Sameera came and set up his concentrator and left him portables. He states he was left with a 3 ft nc. I spoke with Sameera and they gave pt 3-7ft nc, 25 ft extension tubing. Pt states he was instructed on how to change from the concentrator to the tanks. He states he was sob, tired, and became "pissed off" and took his scooter outside and had a smoke. He states he thought this would help, but he became shorter of breath and then began to have a panic attack. He then returned to the ER. I asked Maco if he is now willing to stop smoking and he states he is done. He will use nicotine patches. I also asked if he is willing to exercise. He states he fibbed to me and cannot walk 50 ft, but runs out of air at 3 ft. He is willing to work with and then transition to OP when he is able to go out on his scooter. He states at this point he is not able to ride his scooter around as he is sob. Let him know I will update his
--- NOTE | 2021-09-11 13:30 | NUR ---
Updated Dr. Galvez pt agrees to stop smoking and start PT.
--- NOTE | 2021-09-11 15:17 | NUR ---
PT. CALLED RN TO ROOM, STATES HE IS FEELING VERY TIGHT AND SOB, EXPIRATORY AND AUDITORY WHEEZING, RT PAGED AND RESPONDED, ALBUTEROL TX IN PROGRESS AND RN GAVE MORPHINE SULFATE 2 MG IV FOR AIR HUNGER/SOB. PT. HAS MOSTLY BEEN ON 02 AT 3L MOST OF THE DAY AND SWITCHING TO BIPAP WHEN RESTING. HE HAS SAT AT THE EOB MOST OF THE DAY. GOOD APPETITE, ADEQUATE FLUIDS, ASSIST WITH BR NEEDS ONE PERSON.
--- NOTE | 2021-09-11 16:00 | NUR ---
TALKED WITH PT. FOR SOME TIME AND HE WAS CALMING DOWN AND FELT BETTER. HE IMPROVED FROM THE MORNING IN THE WAY HE WAS MOVING, HE WAS OFF HIS BIPAP MOST OF THE DAY AND SATS WNL MULTIPLE CHECKS THROUGHOUT THE DAY WITH 02 AT 3L NC. HE WAS ABLE TO STAND INDEPENDENTLY AT THE EDGE OF THE BED AND RN HAD TO PLACE THE GRADUATED CONTAINER SECURELY UNDERNEATH HIM FOR URINATION. APPETITE NORMAL AND ADEQUATE LIQUIDS. DENIES ANY PAIN BUT STATES HE IS FEELING MORE ANXIOUS THIS ADMISSION AND FEELS APPRECIATIVE OF HOSPITAL STAFF HELPING HIM AND STATES HE WILL GO TO REHAB IF NEEDED AND HE WILL NOT BE SMOKING AGAIN. STATES THAT THIS EVENT HAS SCARED HIM.
--- NOTE | 2021-09-11 16:14 | NUR ---
MED REC COMPLETE
--- NOTE | 2021-09-11 19:40 | NUR ---
RECEIVED REPORT TEMPERARILY RIPRAP PLACING SUPERVISOR WHILE PRIMARY RN IS ON HER WAY.
--- NOTE | 2021-09-11 19:45 | NUR ---
IN TO ASSIST PT WITH TOILETING NEEDS, PT ATTEMPTED TO VOID STANDING AT THIS [facility], VOID MISSED UNTO THE FLOOR, PT BACKTO BED, PLACED BACK ON BIPAP,
--- NOTE | 2021-09-11 21:30 | NUR ---
IN ROOM TO CHECK ON PT AND ADMINISTER MEDICATIONS. PT DENIES PAIN AT THIS TIME. PT IS SITTING UP AT EDGE OF THE BED, HE HAD BIPAP ON AND REMOVED IT TO TAKE HIS MEDICATIONS WEARING 3LNC. VS TAKEN AND ENTERED FIRST SBP WAS 99, RECHECKED BP AND GOT 101/56. PT DENIES SX OF LOW BP. HELD LISINOPRIL DOSE PER PARAMETERS. PT WANTED TO KEEP HIS NICODERM PATCH ON TONIGHT. PT DENIES FURTHER NEEDS AT THIS TIME. CALL LIGHT IS CLOSE, HE REMAINS SITTING UP AT EDGE OF BED.
--- NOTE | 2021-09-11 22:20 | NUR ---
PT WEARING BIPAP. LEAK NOTED AND MASK ADJUSTED. HOB ELEVATED APPROX 60 DEGREES.
--- NOTE | 2021-09-11 23:20 | NUR ---
PT REMOVED BIPAP AND IS SITTING AT EDGE OF BED IN TRIPOD POSITION. O2 SAT READING 95% ON 3 LPM.
--- NOTE | 2021-09-12 00:13 | NUR ---
RT HAS BEEN IN A COUPLE OF TIMES. PT IS NOW BACK IN BED WITH HOB APPROX 60 DEGREES. BIPAP ON.
--- NOTE | 2021-09-12 01:50 | NUR ---
PT REMOVED O2 NC AND BIPAP. PT STATES "HELP ME". WHEN ASKED WITH WHAT HE STATES "I CAN'T BREATHE". O2 APPLIED. O2 SATS ON 3 LPM 95-97%. INCREASED WOB NOTED. STATYED WITH PT UNTIL IT DECREASED. PT STATES HE WILL SIT AT EDGE OF BED FOR A WHILE. FREQUENTLY OF DRY COUGH INCREASED.
--- NOTE | 2021-09-12 04:15 | NUR ---
CALL LIGHT ON, PT REQUESTING SOMETHING TO EAT, ABLE TO PROVIED A SNACK
--- NOTE | 2021-09-12 04:20 | NUR ---
VS TAKEN AT THIS TIME, BSC EMPTIED, ICE WATER FILLED, PT LAYS BACK IN BED, 02NC BACK IN PLACE
--- NOTE | 2021-09-12 07:01 | NUR ---
CURRENTLY SITTING ON EDGE OF BED WITH BIPAP OFF.
--- NOTE | 2021-09-12 07:02 | NUR ---
PT EITHER IN BED WITH HOB APPROX 60 DEGREES, SITTING AT EDGE OF BED, OR IN A TRIPOD POSITION WITH ARMS AND HEAD ON BEDSIDE TABLE. PT APPEARS TO NOT BE ABLE TO THINK CLEARLY AT TIMES. OTHER TIMES HE IS LUCID. WILL KEEP THE BIPAP ON DURING PERIODS OF SLEEP. ATE SEVERAL SNACKS THROUGOUT THE NIGHT.
--- NOTE | 2021-09-12 07:30 | NUR ---
REPORT RECEIVED FROM NIGHT СЕРГЕЙ ELAM - PT SITTING IN BED WITH HEAD OF BED ELEVATED. HARSH HACKING COUGH NOTED UPON ENTERING THE ROOM. PT REQUESTS COUGH DROPS. PT STATES HE HAS BEEN THROWING UP X3, PAPA UNAWARE. PT SITS ON EDGE OF BED C/O NEW ONSET LEFT SIDE PAIN, WORSE WITH INSPIRATION. BIPAP APPLIED. VS TAKEN, BP HIGH, SPO2 99% - RN UNAWARE IF HE RETAINS CO2. RT CALLED AND REQUESTED TO ASSESS IF FURTHER INTERVENTIONS ARE APPROPRIATE.
--- NOTE | 2021-09-12 08:08 | NUR ---
RN IN ROOM TO CONTINUE TO ASSESS PT RESPIRATORY STATUS. SITTING ON EDGE OF BED ON BIPAP IN TRIPOD POSISTION. PT RATES PAIN A 7/10, SHARP IN NATURE AND CONSTANT. PT REQUESTS MORPHINE. RT CALLED AGAIN.
--- NOTE | 2021-09-12 08:35 | NUR ---
CALL PLACED TO DR. ROMERO TO NOTIFY MD OF NEW ONSET L SIDE PAIN, RR STATUS AND PTS REQUEST FOR COUGH DROPS AND MORPHINE. NEW ORDERS RECEIVED FOR TORADOL 30MG IV ONCE FOR PAIN, HYDROXAZINE 25MG PO ONCE FOR ANXIETY, AND TESSALON PEARLES 100-200MG PO Q8H FOR COUGH.
--- NOTE | 2021-09-12 08:59 | NUR ---
MED REC COMPLETE
--- NOTE | 2021-09-12 09:20 | NUR ---
RN IN ROOM TO ADMINISTER MEDICATIONS AND ASSESS PT. PT SITTING IN BED WITH HEAD OF BED ELEVATED UPON ENTERING. PT APPEARS MUCH IMPROVED COMFORTABLE, DECREASED WORK OF BREATHING, WEARING NC AT 2.5L. PT CONTINUES TO HAVE HARSH COUGH THAT SPASMS ONCE STARTED. SIDE PAIN INCREASES WITH THIS BUT PT STATES PAIN HAS IMPROVED AFTER NEB TX. PLAN OF CARE DISCUSSED WITH PT - HE AGREES. DENIES QUESTIONS OR CONCERNS. ASSESSMENT COMPLETE. CALL LIGHT IN REACH.
--- NOTE | 2021-09-12 11:16 | NUR ---
RN IN ROOM TO REASSES PT. PT IS UPSET HE DOES NOT HAVE COUGH DROPS. EDUCATION PROVIDED TO PT REGARDING COUGH MEDICATION ORDERED. NICOTINE LOZENGE REQUESTED - ADMINISTERED. PT SITTING ON SIDE OF BED UNLABORED BREATHING, 2.4L VIA NC. RATES PAIN THE SAME NUMBER BUT STATES IT "IS BETTER". COUGH NON PRODUCTIVE.
--- NOTE | 2021-09-12 13:10 | NUR ---
RN IN ROOM TO ROUND ON PT. PT REQUESTS TO USE BATHROOM TO HAVE BM - AMBULATES STEADY ON FEET, NO INCREASE IN SOB NOTED. PT UNABLE TO HAVE BM. BACK TO BED, PT REQUESTS BIPAP ON FOR NAP. STATES HE IS FEELING MORE RELAXED. BREATH SOUNDS UNCHANGED, WHEEZING ON R SIDE, VERY DIM ON R SIDE.
--- NOTE | 2021-09-12 14:45 | NUR ---
Spoke with pt and he states he told Dr. Wagoner he will go to a SNF. He wants to go to the [facility]. Let him know I will check for availability and send his chart.
--- NOTE | 2021-09-12 16:17 | NUR ---
RN IN ROOM TO ADMINISTER SCHEDULED MEDICATIONS. PT JUST FINISHED NEB TX, SITTING ON EDGE OF BED LEANING ON TABLE. WORK OF BREATHING IMPROVED. COUGH DROP ADMINISTERED. LEFT SIDE PAIN IMPROVED- PT DENIES PAIN. PT REPORTS BM - UNREMARKABLE. CALL LIGHT IN REACH.
--- NOTE | 2021-09-12 17:31 | NUR ---
PT IS SITTING UP IN BED WATCHING TV.I&O AND VS CHARTED CALL LIGHT WITHIN REACH NO FURTHER TASKS AT THIS TIME
--- NOTE | 2021-09-12 17:50 | NUR ---
RN IN ROOM TO ROUND ON PT. PT REQUESTS PRN COUGH DROP - PROVIDED. PT SITTING IN BED RESTING WITH MINIMAL WORK OF BREATHING - 2.5L NC. PT USING LAPTOP TO LOOK AT FB. IN [employer]ITS. CALL LIGHT IN REACH.
--- NOTE | 2021-09-12 18:14 | NUR ---
Found [facility]. Called both, [facility] has 2 beds open, [facility] and unsure if they will have a bed open. Chart faxed to both SNF: last admission H&P, DC summary, PT/OT notes, this admission H&P. Did not fax PT/OT eval as pt declined to work with both.
--- NOTE | 2021-09-12 18:16 | NUR ---
Spoke with pt and let him know, he will need to work with PT/OT tomorrow if he wants to be placed. Let him know, SNFs will not take pts who decline to work with therapy. He states he will work with them tomorrow. He then tells me about his discharge and how he didn't realize how deconditioned and how much air he needs just to stand.
--- NOTE | 2021-09-12 18:51 | NUR ---
PT SITTING ON EDGE OF BED USING LAPTOP. RESPIRATORY STATUS IMPROVED THROUGHOUT DAY WITH Q4 NEBS, AND PRN COUGH MEDS. PRN FOR ANXIETY ALSO HELPED PT REST TODAY, IMPROVED WORK OF BREATHING. CONTINUES TO NEED 2L VIA NC DURING DAY/BIPAP AT NIGHT. PT WORKING WITH CASE MANAGMENT FOR SHORT STAY REHAB BEFORE RETURNING TO APARTMENT.
--- NOTE | 2021-09-12 22:15 | NUR ---
AWOKE PT FOR VS AND MEDS. DISCUSSED PLAN FOR SHIFT. PRN COUGH MED AND ANTIANXIETY GIVEN. PT STOOD AT SIDE OF BED TO VOID. FRESH WATER GIVEN. PT STATES HE IS FEELING MUCH BETTER THAN YESTERDAY.
--- NOTE | 2021-09-12 23:05 | NUR ---
in to provide pt with a snack, no further needs at this time
--- NOTE | 2021-09-13 01:01 | NUR ---
ALERT. REQUESTS SNACK. NO DISTRESS NOTED.
--- NOTE | 2021-09-13 02:05 | NUR ---
AWAKE AND WATCHING TV. NO DISTRESS NOTED. COUGH DROP GIVEN.
--- NOTE | 2021-09-13 03:31 | NUR ---
PT CALLED AND STATES HE IS FEELING SOB. RT IN TO GIVE TX. PT UP IN CHAIR. ABLE TO TALK IN COMPLETE SENTENCES BUT SHOWS INCREASED WOB
--- NOTE | 2021-09-13 03:59 | NUR ---
STATES HE IS HAVING DIFFICULITY SLEEPING IN THE BED. HAS RECLINED IN THE RECLINER AND IS GOING TO TRY TO GET SOME SLEEP THERE.
--- NOTE | 2021-09-13 07:37 | NUR ---
REPORT RECEIVED FROM NIGHT RN PAPA - PT SITTING UP IN CHAIR, 1L VIA NC ON. PT STATES HE DID NOT SLEEP WELL. DENIES NEEDS AT THIS TIME. CALL LIGHT IN REACH.
--- NOTE | 2021-09-13 09:01 | NUR ---
RN IN ROOM TO ADMINISTER SCHEDULED MEDICATIONS. PT SITTING ON EDGE OF BED UPON ENTERING THE ROOM. PT STATES HE IS TIRED. IV SITE FLUSHES WITHOUT DIFFICULTY. PT FINISHED 100% BREAKFAST - STATES HE HAD SEVERAL SNACKS THROUGH THE NIGHT - EDUCATION ON LOW SODIUM DIET NEEDS REINFORCED. PT DENIES FURTHER NEEDS, CALL LIGHT IN REACH.
--- NOTE | 2021-09-13 09:10 | NUR ---
PT IS SITTING UP ON SIDE OF BED. I&O AND VS CHARTED CALL LIGHT WITHIN REACH NO FURTHER TASKS AT THIS TIME
--- NOTE | 2021-09-13 09:52 | NUR ---
LM FOR [facility]ER CHECKER AT THE [facility] REGARDING REFERRAL.
--- NOTE | 2021-09-13 09:59 | NUR ---
LM FOR [facility] REGARDING REFERRAL.
--- NOTE | 2021-09-13 10:30 | NUR ---
OT IN ROOM TO WORK WITH PT
--- NOTE | 2021-09-13 11:00 | NUR ---
RN IN ROOM TO ASSESS PT. PT SITTING UP ON BEDSIDE IN TRIPOD POSITION AGAINST BED SIDE TABLE UPON ENTERY. WAKES WITH GENTLE TOUCH. PT DENIES PAIN. STATES HE IS FEELING "GOOD, JUST TIRED" TODAY. WORKED WITH OT EARLIER. VS STABLE. LUNG SOUNDS IMPROVED, NO COUGH NOTED THIS SHIFT. ENCOURAGED FLUTTER VALVE USE. PT DENIES FURTHER NEEDS, CALL LIGHT IN REACH.
--- NOTE | 2021-09-13 13:10 | NUR ---
RN IN ROOM TO ROUND ON PT. PT SITTING UP ON EDGE OF BED. PT STATES HE IS STILL HUNGRY FROM LUNCH AND REQUESTS A SNACK. ENCOURAGED PT TO ORDER SOMETHING FROM [employer] THAT IS LOW SODIUM VERSUS CRACKERS. RN CALLED [employer] TO ORDER TUNA SANDWHICH. PT DENIES NEEDS OTHERWISE.
--- NOTE | 2021-09-13 14:02 | NUR ---
pt is sitting up on side of bed. i&o and vs charted call light within reach no further tasks at this time
--- NOTE | 2021-09-13 14:49 | NUR ---
RN IN ROOM TO ADMINISTER MEDICATIONS AND ASSESS PT. PT SITTING COMFORTABLE IN BED, NO SOB NOTED - 1L VIA NC IN PLACE. CHEST IV SITE FLUSHES WITHOUT DIFFICULTY. PT COMPLAINING ABOUT FOOD QUANTITY PROVIDED AT [employer]. LOW SODIUM DIET EDUCATION PROVIDED AND ENCOURAGED PT TO CALL [employer] WITH REQUEST OF LOW/NO SODIUM ITEMS TO INCLUDE ON TRAY.
--- NOTE | 2021-09-13 15:45 | NUR ---
pt got a shower and linens changed. call light in reach no further tasks at this time
--- NOTE | 2021-09-13 16:20 | NUR ---
RN ROUNDING ON PT - SITTING UP IN BED. PT REQUESTS NEB TX - INFORMED IT WILL BE ADMINISTERD BY RT SOON. PT DENIES FURTHER NEEDS. CALL LIGHT IN REACH.
--- NOTE | 2021-09-13 17:18 | EKG ---
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
--- NOTE | 2021-09-13 18:10 | NUR ---
PT ORDERED SELF [employer] TO ROOM. MD RYAN'D LOW SODIUM DIET.
--- NOTE | 2021-09-13 21:35 | NUR ---
Pt ordered from [employer] and frozen yogurt was delivered. Pt in bed with HOB greater than 60 degrees. Increased WOB noted.
--- NOTE | 2021-09-13 21:45 | NUR ---
CALL LIGHT ON, PT SAYS WATER IS GOING EVERYWHERE, THIS OPTICAL GLASS ETCHER IN ROOM, PERONAL ITEMS SCATTER ON THE FLOOR, LAPTOP, PHONE, ECT.. FOUND THE STERILE WATER FOR THE BIPAP WAS LEAKING ONTO THE FLOOR, OVER THE BED, ON PT, FULL LINEN CHANGE, DRYING THE FLOOR, PT DENIES KNOWLAGE ON HOW THE BAG OF WATER BECAME UNPLUGGED, PT STATES IT JUST STARTED HAPPENING, PT BACK TO BED, NO FURTHER NEEDS AT THIS TIME
--- NOTE | 2021-09-14 00:13 | NUR ---
HAS EATEN 2 PUDDINGS. REQUESTED BREATHING TX.
--- NOTE | 2021-09-14 03:53 | NUR ---
SLEEPING ON R SIDE WITH MOHEGAN ELEVATED APPROX 60 DEGREES. NO DISTRESS NOTED.
--- NOTE | 2021-09-14 05:22 | NUR ---
C/O OF PAIN TO SKIN ON L GROIN. BLUE WIPES USED AND THEN SILICONE CREAM APPLIED. PT STATES RELIEF. IS GOING TO TRY TO GET BACK TO SLEEP.
--- NOTE | 2021-09-14 06:48 | NUR ---
Did not use the BIPAP during the night. SLept off and on during the night. HOB elevated greater than 60 degrees all shift.
--- NOTE | 2021-09-14 07:39 | NUR ---
REPORT RECEIVED FROM HARSHA RN Tiffany ELAM. PT SITTING ON EDGE OF BED, [address] PT REQUESTS COUGH DROP - ADMINISTERED. WET NON PRODUCTIVE COUGH NOTED. CALL LIGHT IN REACH.
--- NOTE | 2021-09-14 08:00 | NUR ---
PT USES CALL LIGHT TO REQUEST NEB TX - STATES HE IS HAVING SOB. RN IN ROOM - NOTES INCREASED WORK OF BREATHING WITH INSPIRATORY AND EXPIRATORY WHEEZING. SPO2 96% ON 1L NC. PT EDUCATION ATTEMPTED REGARDING SODIUM AND WATER R/T DISEASE PROCESS. PT STATES THAT HE WOULD NOT HAVE NEEDED TO ORDER [employer] AND OTHER DOOR DASH FOOD LAST NIGHT IF WE WOULD HAVE FED HIM WHILE HE WAS HERE. RN REINFORCED WITH PT THAT HE WAS NOT WITHHELD FOOD DURING HIS STAY, ONLY SODIUM WAS LIMITED AND THAT HE WAS PROVIDED MANY EXTRA SERVINGS OF LOW SODIUM FOODS. RT CALLED BY RN TO REQUEST NEB TX FOR PT. RT ARRIVES TO ROOM TO ADMINISTER AND PT REQUESTS SHE RETURN LATER SO HE CAN EAT BREAKFST.
--- NOTE | 2021-09-14 09:08 | NUR ---
RN IN ROOM TO ADMINISTER SCHEDULED MEDICATIONS - PT SITTING UP ON SIDE OF BED IN TRIPOD POSITION AGAINST BED SIDE TABLE. APPEARS TO BE SLEEPING, FOLLOWS DIRECTIONS WHEN ASKED. LUNG SOUNDS IMPROVED AFTER NEB TX - NO WHEEZING NOTED. WORK OF BREATHING IMPROVED WELL. SP02 STABLE ON 1L. IV SITE ON R CHEST FLUSHES WITHOUT DIFFICULTY, NO REDNESS OR SWELLING NOTED. CALL LIGHT IN REACH.
--- NOTE | 2021-09-14 10:45 | NUR ---
PT USES CALL LIGHT TO STATE THAT HE IS "HAVING TROUBLE BREATHING". RN IN ROOM TO ASSESS - WHEEZING NOTED THROUGHOUT LUNG REGIONS, SPO2 98%, RR 22 BUT SHALLOW. PT STATES HE IS FEELING ANXIOUS - PRN PROVIDED. RT CALLED TO REQUEST PRN NEB TX.
--- NOTE | 2021-09-14 11:28 | NUR ---
RN ROUNDING ON PT - PT RESTING IN BED WITH HEAD OF BED ELEVATED. PT STATES NEB TX HELPED HIS FELLING OF SOB. NO DISTRESS NOTED. EDUCATION ON CHF AND SALT IN TAKE REINFORCED IN DIFFERENT APPROACH.
--- NOTE | 2021-09-14 13:01 | NUR ---
RT IN ROOM TO PERFORM NEB TX. RT REPORTS PT WAS BEGINING TO RELAX IN BED AFTER TREATMENT - LIGHTS OFF WITH SHADES DRAWN AND WARM BLANKET APPLIED. RT REPORTS SHE ATTEMPTED USE OF CPAP BUT PT UNABLE TO TOLERATE. WILL CONTINUE TO ASSESS RESPIRATORY STATUS.
--- NOTE | 2021-09-14 13:18 | NUR ---
ORACLE FUSION CONSULTANT REPORTS TO RN THAT PT VS SPO2 IS 88 - RN IN ROOM TO ASSESS PT RT HAD JUST LEFT ROOM FROM [facility] [facility]. LUNG SOUNDS ARE COURSE WITH WHEEZING THROUGHOUT ALL BENZ. NO CRACKLES NOTED. PT STATES HE IS SOB, NO ACESSORY MUSCLE USE NOTED OR INCREASED WORK OF BREATHING. PT NOW SPO2 IN HIGH 90S ON 1L VIA NC SITTING ON EDGE OF BED. SOB WORSENS WITH ANY OTHER POSITION. ORACLE FUSION CONSULTANT OBTAINED WEIGHT ON PT USING STANDING SCALE - SAME BED WEIGHT TAKEN ON ADMISSION. MD TO BE UPDATED BY RN.
--- NOTE | 2021-09-14 14:28 | NUR ---
RN IN ROOM WITH RT - PT EDCUATION AND OPTIONS DISCUSSED WITH NATALIE. PT FRUSTRATED WITH POTENTIAL SOLUTIONS TO IMPROVED RESPIRATORY STATUS -STATES HE CAN NOT WEAR THE BIPAP, DOES NOT WANT TO REPOSITION IN BED OR EVEN WHEELCHAIR TO LEAVE ROOM FOR A FEW MINUTES. VS STABLE. SPO2 STABLE ON 1L. WORK OF BREATHING INCREASING WITH EXPIRATORY END WHEEZE. PT IS EATING LARGE MEALS AND SOB IS WORSENING AFTER MEALS. CONTINUE TO EDUCATE PT OF WHAT INTERVENTIONS CAN HELP HIM FEEL MORE COMFORTABLE. MD AWARE OF RN AND RT ASSESSMENT - NEW ORDERS ENTERED. ADDITIONAL DOSE OF PRN ANXIETY MED ADMINISTERED.
--- NOTE | 2021-09-14 14:59 | NUR ---
pt had [employer] delivered by [employer] to his room.
--- NOTE | 2021-09-14 16:45 | NUR ---
PT USES CALL LIGHT TO REQUEST 2 PUDDINGS. PT NOW ON ACHS CBGS'S WITH REGULAR DIET. REGUALR DIET VERIFIED WITH MD. CBG VALUE 368.
--- NOTE | 2021-09-14 17:26 | NUR ---
RN IN ROOM TO ADMINISTER 10 UNITS HUMALOG FOR CBG OF 368. PT SITTING ON EDGE OF BED EATING DINNER. PT EATING EXTREMELY FAST AND NEEDED TO BE ASKED TO STOP TO ADMINISTER INSULIN IN BACK OF ARM. CALL LIGHT IN REACH.
--- NOTE | 2021-09-14 18:23 | NUR ---
RN ROUNDING ON PT - RESTING IN BED WITH HEAD OF BED ELEVATED, NC IN PLACE AT 1L 02. NOT NOTED SOB. PT WATCHING TV. CALL LIGHT IN REACH.
--- NOTE | 2021-09-14 19:53 | NUR ---
CALL LIGHT ANSWERED. PATIENT ASKED FOR ICE WATER. PROVIDED. NO OTHER NEEDS AT THIS TIME. RT BERNARD WAS IN THE ROOM.
--- NOTE | 2021-09-14 21:00 | NUR ---
Pt resting in bed, watching tv- appears comfortable. Ambulates in room independently. Pt up to bathroom. Denies pain/discomfort at this time. Verbalizes needs appropriately. Call light within reach. Will cont to monitor.
--- NOTE | 2021-09-14 22:34 | NUR ---
PATIENT CALLED AND ASKED FOR PUDDING X2. PROVIDED. PRIMARY RN IRENE NOTIFIED.
--- NOTE | 2021-09-14 23:46 | NUR ---
Compliant with medication administration and assessment. Pleasant mood. Verbalizes needs appropriately. Appears comfortable. Denies pain. Call light within reach. Will cont to monitor.
--- NOTE | 2021-09-15 02:00 | NUR ---
Pt is resting in bed with call light at hand and appears comfortable. Verbalizes needs appropriately. VSS. Will cont to monitor.
--- NOTE | 2021-09-15 05:43 | NUR ---
Pt resting in bed and appears comfortable. Verbalizes needs appropriately. Call light within reach. Will cont to monitor.
--- NOTE | 2021-09-15 07:33 | NUR ---
REPORT RECEIVED FROM HARSHA BOSS.
--- NOTE | 2021-09-15 07:55 | NUR ---
patient sitting on the edge. went in to room to do blood sugar. CBG was at 261. wash cloth refused. call light with in reach. no further needs at this time.
--- NOTE | 2021-09-15 08:55 | NUR ---
PATIENT UP TO BATHROOM AD EMORY, ASSISTED WITH WIPING, PATIENT INDICATED THAT HE WAS UNABLE.
--- NOTE | 2021-09-15 09:02 | NUR ---
RN IN ROOM TO ADMINISTER SCHEDULED MEDICATIONS. PT FOUND SITTING ON EDGE OF BED IN TRIPOD POSITION ASLEEP. WAKES EASILY WITH SOUND. PT HAS 1L VIA NC IN PLACE, NO SOB NOTED, SOME END EXPIRATORY WHEEZE NOTED WITHOUT AUSCULTATION. PT ATE 100% OF BREAKFAST - 6 UNITS HUMALOG ADMINISTERED FOR CBG OF 261. PT STATES HE WANTS TO TAKE A SHOWER, ONCOLOGY PATIENT NAVIGATOR TO BE NOTIFIED. CALL LIGHT IN REACH.
--- NOTE | 2021-09-15 10:30 | NUR ---
RN IN ROOM TO ASSESS PT - PT SITTING ON EDGE OF BED WORKING ON LAPTOP. LUNG SOUNDS IMPROVED THIS AM. NO WHEEZING NOTED. NO SOB NOTED WITH 1L NC. PT STATES HE HAD BM THIS AM. PT BECOMES AGGITATED WHEN TALKING ABOUT BEING UPSET WITH OTHER STAFF COMING IN HIS ROOM THAT ARE NOT LISTED ON THE BOARD. PT WAS EDUCATED THAT ALL STAFF THAT ARE IN DIRECT PT CARE HELP EACHOTHER AND WILL ACCESS THE ROOM TO ASSIST THE PT OR DO THEIR JOB. PT HAS UNREALISTIC EXPECTATION THAT ONLY HIS ASSIGNED NURSE AND IT SYSTEMS MANAGER WILL PROVIDE CARE.
--- NOTE | 2021-09-15 11:11 | NUR ---
PT AMBULATING IN HALLWAY WITH PT.
--- NOTE | 2021-09-15 11:42 | NUR ---
RT IN ROOM PROVIDING BREATHING TX.
--- NOTE | 2021-09-15 11:57 | NUR ---
RN IN ROOM TO ADMINISTER 8 UNITS INSULIN FOR CBG 294. PT SITTING UP IN CHAIR USING LAPTOP. WHEN ADMINISTERING INJECTION INTO LEFT ARM PT HIDES HIS LAPTOP SCREEN. RN STATES "DONT WORRY, IM NOT TRYING OR GOING TO LOOK AT YOUR SCREEN". PT STATES "DONT WORRY YOU WONT SEE IT". RN LEAVES ROOM WITHOUT COMMENT.
--- NOTE | 2021-09-15 15:22 | NUR ---
1400 MEDICATION GIVEN, UPDATED THE PATIENT ON PLAN OF CARE, HE HAS NO REAL DESIRE AT THIS TIME TO HERE OR ANSWER QUESTIONS. HE IS ON THE COMPUTER AT THIS TIME. rESPIRATION AT 22 WITH INTERMITTENT EXPIRTORY WHEEZES. [address], PATIENT IS VERY ODOROUS WELL AT THIS TIME.
--- NOTE | 2021-09-15 18:31 | NUR ---
PATIENT SITTING EDGE OF BED ON HIS COMPUTER, ASKED QUESTION ABOUT THE INSULIN AND ORAL DIABETIC MEDICATIONS, I ANSWERED TO THE BEST OF MY ABILITY.
--- NOTE | 2021-09-15 19:37 | NUR ---
Patient awake playing on his lapton in bed. Patient denies shortness of breath, currently on 1L of oxygen per nc, respiration are even and non labored. Patient denies needs. Encouraged patient to call for needs. Personal supplies and call light within reach.
--- NOTE | 2021-09-15 23:55 | NUR ---
Patient awake watching tv, no distress. Patient remains on 1L oxygen per nc, respirations even and non labored. No current needs.
--- NOTE | 2021-09-16 06:09 | NUR ---
Patient requesting a breathing treatment for shortness of breath. RT to come administer breathing treatment at this time. Patient remains on 1L oxygen per nc, sp02 is 92%. Patient reports he did not sleep well last night.
--- NOTE | 2021-09-16 07:30 | NUR ---
PATIENT REPORT RECEIVED FROM СЕРГЕЙ PAT. PATIENT WANTS HIS BREAKFAST NOW! INFORMED PATIENT I COULD NOT GET BREAKFAST TO OME UP ANY FASTER AND IT SHOULD BE HERE IN ABOUT 45 MINUTES. PATIENT WANTS ALL HIS CARE DONE BEFORE BREAKFAST ARRIVES HE WILL NOT TOLERATE HIS BREAKFAST BEING INTERRUPTED AND WILL REFUSE CARE. THIS RN INFORMED PATIENT I WOULD BE BACK AND TRY TO GET ALL HIS CARES DONE BEFORE BREAKFAST. CALL LIGHT IS IN REACH.
--- NOTE | 2021-09-16 08:10 | NUR ---
PATIENT IRRITABLE AND DOES NOT WANT TO BE INTERRUPTED BY STAFF DURING HIS BREAKFAST. PATIENT'S CARE CLUSTERED AND AM MEDS/VITALS/ASSESSMENT COMPLETE. VS STABLE ON 1L/NC. PATIENT'S CALL LIGHT IS IN REACH. PATIENT DENIES ANY OTHER CARE NEEDS AT THIS TIME.
--- NOTE | 2021-09-16 10:14 | NUR ---
SPOKE WITH PATIENT, HE STATES HE IS OKAY WITH DISCHARGING TO [facility] AT THIS TIME SINCE HE DOES RESIDE HERE. UPDATED PATIENT THAT I HAD NOT HEARD A RESPONSE FROM EITHER FACILITY IN THE [place] AND I WOULD BE HAPPY TO SEND HIS CHART TO [facility] THE DO HAVE BED AVAILABILITY. PATIENT AGREES, CHART FAXED TO [facility] @ [facility] FOR REVIEW.
--- NOTE | 2021-09-16 10:35 | NUR ---
THIS RN DOING ROUNDS. PATIENT UP IN BED TALKING WITH JONI Yuen NURSE DREDGE BOAT ENGINEER DOING CASE MANAGEMENT NOTES. PATIENT HAS NO CURRENT CARE NEEDS FROM THIS RN AT THIS TIME. CALL LIGHT IS IN REACH.
--- NOTE | 2021-09-16 10:45 | NUR ---
I was able to meet with Harris today and discuss his care here in the hosptial, overall he is happy with his care, his issues of concerns from the previous day will be followed up. Harris does feel that his medications are explanined, his room is clean, and on this day he has no patient care. Harris denies needs prior to me leaving the room. He is alert and oriented, and answers questions appropriately.
--- NOTE | 2021-09-16 11:40 | NUR ---
PATIENT UP WITH PT AND WALKED ONE LAP AROUND MED/SURG WITH FWW ONLY HAVING TO STOP AND SIT X1. PT CONTINUES TO WORK WITH PATIENT.
--- NOTE | 2021-09-16 12:08 | NUR ---
PATIENT'S ZWLD=580. PATIENT IRRITATED THAT I BROUGHT HIS 10UNITS OF INSULIN IN AFTER HIS LUNCH HAD ARRIVED AND LET ME ADMINISTER IT, BUT WOULD NOT TALK TO ME. PATIENT STILL EATING HIS LUNCH. CALL LIGHT IN REACH.
--- NOTE | 2021-09-16 13:06 | NUR ---
PATIENT SITTING IN BED ON HIS LAPTOP WATCHING TV. PATIENT HAS NO CURRENT CARE NEEDS AT THIS TIME. CALL LIGHT IS IN REACH.
--- NOTE | 2021-09-16 14:37 | NUR ---
AFTERNOON ASSESSMENT COMPLETE. PATIENT IRRITATED THIS RN NEEDED TO EXAMINE HIM. PATIENT HAS SOME EXPIRATORY WHEEZES THROUGHOUT AND PATIENT WANTED A PRN NEB TREATMENT AND RT WAS CALLED AND ON THERE WAY. RESPIRATIONS ARE 22/MIN. PATIENT SOLUMEDROL IV GIVEN. PATIENT DENIES ANY OTHER CARE NEEDS AT THIS TIME. CALL LIGHT IS IN REACH. NO OTHER CARE NEEDS FROM THIS RN AT THIS TIME.
--- NOTE | 2021-09-16 15:02 | NUR ---
JOANNE RIGGS FROM [facility]U AT THE [facility] REGARDING CURRENT NEED FOR PLACEMENT. CALLED, UPDATED TRU THAT THE PATIENT DOES STILL REQUIRE PLACEMENT AND I HAVE FAXED UPDATED CHART. TRU WILL REVIEW AMISH.
--- NOTE | 2021-09-16 16:16 | NUR ---
PATIENT CALLED FOR A CUP OF COFFEE WITH 2 CREAMS. THIS WAS DELIVERED TO THE PATIENT BY THIS RN. PATIENT GETTING 1600 NEB TREATMENT FROM RT WHO IS IN THE ROOM. PATIENT HAD NO OTHER CARE NEEDS FOR THIS RN AT THIS TIME. CALL LIGHT IN REACH.
--- NOTE | 2021-09-16 17:01 | NUR ---
PATIENT'S EVENING MEDS GIVEN AND S/S INSULIN GIVEN. PATIENT'S DINNER HAS ARRIVED AND HE DOES NOT WANT TO BE DISTRUBED WHILE HE EATS. THIS RN VERBALIZED UNDERSTAND AND NO OTHER CARE NEEDS NOTED AT THIS TIME. CALL LIGHT IN REACH.
--- NOTE | 2021-09-16 17:36 | NUR ---
PATIENT LESS IRRITABLE THIS EVENING, BUT STILL DOES NOT WANT ANYONE IN HIS ROOM AFTER HIS MEAL ARRIVES AND UNTIL HE HAS FINISHED EATING. BLOOD SUGARS HAVE RUN IN THE 300'S ALL DAY WITH S/S COVERAGE OF INSULIN WHICH WAS INCREASED BY THIS AFTERNOON. PATIENT LUNGS HAVE BEEN DIM WITH WHEEZES THOUGH THE DAY AND CONTINUES TO GET SCHEDULED MEDS AND HAD ONE PRN NEB TODAY. IV TO THE RT CHEST STILL FLUSHES FINE. SOLUMEDROL DOSE WAS DECREASED TO 20MG TODAY. PATIENT HAS A GREAT APPITITE AND CONTINUES TO ASK FOR SNACKS BETWEEN MEALS AND HE IS ON A REGULAR DIET. VS REMAIN STABLE AND URINE OUTPUT QS. PATIENT REMAINS ON 1L/NC. PATIENT JUST CALLED FOR 2 MORE PUDDINGS, WHICH DIETARY IS BRINGING UP. CALL LIGHT IN REACH AND PATIENT IN BED WATCHING TV AND WORKING ON HIS COMPUTER. PATIENT DID GET UP TODAY AND WALK ALL THE WAY AROUND THE MED/SURG UNIT ONLY STOPING TO SIT AND REST ONCE.
--- NOTE | 2021-09-16 19:15 | NUR ---
REPORT RECEIVED FROM OFFGOING RNRENATO. PT RESTINGIN BED. DENIES NEEDS AT THIS TIME. CALL LIGHT IN REACH.
--- NOTE | 2021-09-16 19:30 | NUR ---
SHIFT REPORT GIVEN BY THIS RN TO СЕРГЕЙ LAROSE. PATIENT IN AN ONLINE MEETING ON HIS LAPTAP. CALL LIGHT IN REACH. PATIENT HAS NO CARE NEEDS AT THIS TIME.
--- NOTE | 2021-09-16 19:45 | NUR ---
PATIENT CALLED ASKING FOR 2 CHOCOLATE PUDDING. PROVIDED.
--- NOTE | 2021-09-16 21:40 | NUR ---
PT ASSESSMENT COMPLETE. PT RESTING IN BED WATCHING TV. PT REPORTS FEELING VERY TIRED, HOPES THAT HE WILL BE ABLE TO SLEEP TONIGHT. PT DENIES PAIN, OR NAUSEA. STATES THAT SOB IS WELL CONTROLLED NOW, REPORTS SOB INCREASES WITH MOVEMENT. LUNG SOUNDS WITH WHEEZE THROUHGOUT. NO COUGH NOTED DURING ASSESSMENT. PT TOLERATING ROOM AIR WELL. ABD FIRM. PT STATES NORMAL. BT'S ACTIVE. NO TENDERNESS NOTED. IV TO R CHEST WALL FLUSHED. WNL. PT REQUESTS CRACKERS AND ICE WATER, PROVIDED. PT DENIES FURTHER NEEDS. CALL LIGHT IN REACH.
--- NOTE | 2021-09-17 00:58 | NUR ---
PATIENT CALLED ASKING FOR 2 CHOCOLATE PUDDING. PROVIDED. ICE WATER REFILLED.
--- NOTE | 2021-09-17 02:00 | NUR ---
PT UTILIZES CALL LIGHT, REQUESTS NEB. RT NOTIFIED. PT ASSESSMENT COMPLETE. PT REPORTS SLIGHT INCREASE IN SOB OVER LAST HOUR. LUNG WITH EXPIRATORY WHEEZE THROUGHOUT. PT REPORTS OCCASIONAL PRODUCTIVE COUGH, NOT NOTED DURING THIS ASSESSMENT. PT SITTING UP AT BEDSIDE. REQUESTS COLD CEREAL AND MILK X 2, PROVIDED. PT DENIES FURTHER NEEDS. RT AT BEDSIDE LOBBY CONCIERGE EXITS. CALL LIGHT IN REACH.
--- NOTE | 2021-09-17 03:18 | NUR ---
PT SITTING AT EDGE OF BED WATCHING TV ON HIS COMPUTER. STATES THAT SOB IS IMPROVED BUT CONTINUES. DENIES NEEDS AT THIS TIME. CALL LIGHT IN REACH.
--- NOTE | 2021-09-17 07:45 | NUR ---
SHIFT REPORT WASECEIVED BY THIS RN FROM СЕРГЕЙ LAROSE. PATIENT CALLED FOR A NEB TREATMENT. AM ASSESSMENT COMPLETE. RESPS=19/MIN, O2 SATS=97% RA. RT INROOM TO GIVE NEB. СЕРГЕЙ GLASS SHADOWING THIS RN TODAY. CALL LIGHT IN REACH.
--- NOTE | 2021-09-17 09:28 | NUR ---
pt is sitting up in bed watching tv. pt got shower. i&o and vs charted. call light within reach no further tasks at this time
--- NOTE | 2021-09-17 10:10 | NUR ---
Received a call from Shaun at [facility]. They will accept Maco today. He has questions of pts vaccination history. Updated documentations shows a comment, pt can't remember dates but has had vacine. Let him know I will schedule the wc van. He asks for anytime, but noon. Let him know I have no control over their schedule and usually have to take what they can get as van is super busy. Dr. Wagoner updated and I printed the chart to send. [address] Wagoner. Chart faxed face, sheet, orders PASRR, med list. Noted added showing pt states he has had two vaccines and no booster. I called and scheduled wc van for transport. Only opening is 11:45, texted Shaun at [facility] to update. Originials placed in envelope and taken to . Updated wc and aid, pt will need to use a wc and van will return it.
--- NOTE | 2021-09-17 10:27 | NUR ---
PATIENT CALLING FOR PRN NEB TREATMENT AND RT HAS BEEN CALLED AND IS ON THE WAY.
[2021-09-17] MEDS ORDERED: TYLENOL325 MG PO (10:29)
[2021-09-17] MEDS ORDERED: HYDROXYZINE PAM25 MG PO (10:29)
[2021-09-17] MEDS ORDERED: BENZONATATE100 MG PO (10:29)
[2021-09-17] MEDS ORDERED: ARTHRICREAM85 GM TOP (10:29)
[2021-09-17] MEDS ORDERED: SORE THROAT LO1 EAC3 MM (10:30)
[2021-09-17] MEDS ORDERED: PREDNISONE20 MG PO (10:31)
[2021-09-17] MEDS ORDERED: METFORMIN HCL500 MG PO (10:31)
[2021-09-17] MEDS ORDERED: MELATONIN3 MG PO (10:32)
[2021-09-17] MEDS ORDERED: HUMALOG100 UNITS/ SUB-Q (10:32)
--- NOTE | 2021-09-17 12:05 | NUR ---
PATIENT'S VS STABLE ON 3L/NC ON PORTABLE L[place] TANK. PATIENT'S IV WAS REMOVED INTACT AND SITE WNL COVERED WITH GAUZE AND TAPE. ALL PATIENT'S BELONINGS PACKED AND SENT WITH PATIENT. NURSING STAFF TOOK PATIENT IN W/C TO W/C VAN TRANSPORTING PATIENT TO [facility].
== END 2021-09-17 12:05 | DRG 189 ==
LOC: ED 21:14 → MS 21:16
PROVIDERS: ADMIT Internal Medicine; ATTEND Internal Medicine
PROC: 5A09357 Assistance with Respiratory Ventilation, Less than 24 Consecutive Hours, Continuous Positive Airway Pressure (ICD-10-PCS; principal; 2021-09-11)
DX: J96.21 Acute and chronic respiratory failure with hypoxia (principal); E66.2 Morbid (severe) obesity with alveolar hypoventilation; Z68.42 Body mass index [BMI] 45.0-49.9, adult; Z20.822 Contact with and (suspected) exposure to COVID-19; J96.22 Acute and chronic respiratory failure with hypercapnia; T38.0X5A Adverse effect of glucocorticoids and synthetic analogues, initial encounter; J43.9 Emphysema, unspecified; I10 Essential (primary) hypertension; E11.65 Type 2 diabetes mellitus with hyperglycemia; Z91.11 Patient's noncompliance with dietary regimen; Z87.891 Personal history of nicotine dependence; Z71.6 Tobacco abuse counseling; Z90.49 Acquired absence of other specified parts of digestive tract; Z98.890 Other specified postprocedural states; Z79.52 Long term (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 systemic steroids; Z91.038 Other insect allergy status; Z79.899 Other long term (current) drug therapy; Z79.82 Long term (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 aspirin
CPT/HCPCS: 36415; 36600; 71045; 71046; 80048; 80053; 82803; 83036; 83880; 85025; 87502; 93005; 93010; 94640; 94660; 94668; 94760; 96374; 96375; 97116; 97163; 97165; 97530; 97535; 99285-25; C9803; J1650; J1815; J1885; J1940; J2270; J2920; J2930; J7512; Q0177; U0003

== ENCOUNTER 2022-01-22 02:20 | Inpatient (IN) | payer MEDICARE ==
[~2022-01-22] VITALS: Ht 185.4 cm; Wt 167.8 kg
[~2022-01-22 02:20] MED LIST changes: +ARTHRICREAM85 GM TOP; +BENZONATATE100 MG PO; +HUMALOG100 UNITS/ SUB-Q; +HYDROXYZINE PAM25 MG PO; +MELATONIN3 MG PO; +METFORMIN HCL500 MG PO; +SORE THROAT LO1 EAC3 MM; +TYLENOL325 MG PO
[2022-01-22] MEDS ORDERED: GABAPENTIN300 MG PO (04:49)
[2022-01-22] MEDS ORDERED: CARVEDILOL6.25 MG PO (04:49)
--- NOTE | 2022-01-22 05:43 | NUR ---
PATIENT ARRIVED TO THE FLOOR VIA STRETCHER. INFLATABLE MAT USED TO XFER Pt FROM STRETCHER TO HOSPITAL BED. PATIENT DID NOT TOLERATE ACTIVITY WELL. PATIENT IS ANXIOUS WITH ACTIVITY. VITALS TAKEN AND RECORDED. ADMISSION COMPLETED BY LESLEY JEFFERSON RN. PATIENTS ASSESMENT COMPLETED. PATIENTS IVS FLUSHED AND SL PER ORDER. PATIENT PLACED ON BIPAP BY RT. NO FURTHER NEEDS NOTED. CALL LIGHT IN REACH.
--- NOTE | 2022-01-22 06:26 | NUR ---
HISTORY COMPLETED, PAST CHART RECORDS OBTAINED FOR INFORMATION. A/O, LIVES ALONE.
--- NOTE | 2022-01-22 07:25 | NUR ---
PT SITTING UP IN CHAIR. FRESH ICE WATER GIVEN. BED MADE. NO NEEDS AT THIS TIME CALL LIGHT WITHIN REACH.
--- NOTE | 2022-01-22 07:34 | NUR ---
Report from Zabrina Marin RN. Patient sitting up in recliner. Oxygen in place, sats 98% at this time. Call light in reach. Denies needs.
--- NOTE | 2022-01-22 09:20 | NUR ---
PT IN CHAIR. VITALS AND IS AND OS TAKEN. NO NEEDS AND THIS TIME. CALL LIGHT WITHIN REACH.
--- NOTE | 2022-01-22 10:00 | NUR ---
Spoke with Maco, he cont. to live at the [facility]. following his dc from SNF. He uses his walker and scooter. He is able to grocery shop a nd get his meds from [employer] using his scooter. His only issue is he can- not sweep or mop without sob. He is able to do his laundry if he breaks it up. He would like a cg in the home. Let him know I can check with Aging and Disability for a CG, I don't think he will qualify as he can go out with a scooter, get to the bathroom and feed himself. He denies other needs and plans on dc to home.
--- NOTE | 2022-01-22 11:00 | NUR ---
CAlled and spoke with Marti Houston from [facility]. Pt will not qualify for state paid cg in the home. She suggests pt contact [facility] for [facility] as they have cg at times. Gave pt the number for [facility] and he states he has worked with them before and will call.
--- NOTE | 2022-01-22 13:16 | NUR ---
PT SITTING IN CHAIR. VITALS AND IS AND OS COMPLETE. PT ASSISTED TO BATHROOM SBA. PT ASSISTED BACK INTO BED. PHARMACY ENTERED ROOM. NO FURTHER NEEDS. CALL LIGHT WITHIN REACH.
--- NOTE | 2022-01-22 13:34 | NUR ---
medications reconciled with pharmacy records and patient interview. Per patient, he now takes nebs every 4 hours and as needed
--- NOTE | 2022-01-22 14:23 | NUR ---
IN TO ANSWER CALL LIGHT. PT REQUESTING HELP WITH GETTING INTO BED. ASSISTED PT TO BED. PT REQUESTING ALBUTEROL. PT SITTING IN BED WITH CALL LIGHT IN REACH. ATTEMPTED TO CALL RESPIRATORY THERAPY, NO ANSWER. PRIMARY RN NOTIFIED.
--- NOTE | 2022-01-22 16:34 | NUR ---
Patient was upset at 1530 he believed he did not receive his albuterol trtmt which he had received from RT at 1500. Patient was having difficulty breathing and was stating that he wanted to go home so that he could give himself albuterol more often then he was receiving at hospital. Patient was offered his BiPap mask at this time and he accepted it and layed in bed with bipap for approximately 30 minutes. Patient got out of bed and to his chair and stated that his breathing had improved after the Bipap. Had to be prompted to put on his nasal cannula while in chair.
--- NOTE | 2022-01-22 17:32 | NUR ---
Patient states that he continuing to have SOB, remains on 4L O2 via nasal cannula. Patient has been noted to be anxious when oxygen has been removed. Patient tends to remove oxygen and forgets to put it back on. Frequent requests for Nebulizer treatments, does note that he is breathing easier after bipap placed but does not leave bipap on for long periods of time. Voices multiple times today that he has had poor sleep for days. Frequently requests additional food.
--- NOTE | 2022-01-22 17:58 | NUR ---
Nursing staff in to check on patient. Sitting on edge of bed, oxygen off, tachypneic, and circumoral cyanosis noted. O2 sats 83% on room air. 4L/min per NC oxygen replaced on patient, O2 sat increased to 87%. Removes oxygen to blow nose. Repositions self in bed and states he would like to sleep. BiPAP placed on patient. Denies other needs at this time. Call light in reach.
--- NOTE | 2022-01-22 18:17 | NUR ---
PT UPRIGHT IN BED W CPAP ON. VITALS AND IS AND OS TAKEN. RN NOTIFIED. PT REQ SLEEP AIDE. RN NOTIFIED. NO NEEDS, CALL LIGHT WITHIN REACH.
--- NOTE | 2022-01-22 20:02 | EKG ---
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
--- NOTE | 2022-01-22 20:25 | NUR ---
pt on 4LNC, lungs with exp and insp wheezing, sitting edge of bed, BIPAP off at this time. calmer, cooperative with assessments. edemat o LE. 2SL patent. tolerating liquid , slow gait and grumbling when up , voided small amount dark yellow urine, back to bed, tolerated fair, sitting edge of bed again. dependennt extremities, following instructions. Fluids and call light at hands reach
--- NOTE | 2022-01-22 21:21 | NUR ---
pt calling for maya tx, sitting edge of bed, anxious, reassured. medicated with melatonin per insomnia, LH field start SL not patent, dc'd, procedure explained. cooperative
--- NOTE | 2022-01-22 23:50 | NUR ---
Pt resting, laying on left side, using BIPAP/CPAP, cpox at bedside sats 94%, pulse 83, [id number]. call light and fluids at bedside
--- NOTE | 2022-01-23 01:18 | NUR ---
pt took bipap off, up to br, slight sob on return noted, resp 26, down to 24-20 when sitting down, back to resting laying on left side, tele#[address] SR, denies CP, coop wtih assessment, lungs with crackles and dim t/o, moist non productive cough present, tolerating liquids well,
--- NOTE | 2022-01-23 03:15 | NUR ---
PT USED BATHROOM CALL LIGHT FOR ASSISTANCE AFTER HAVING BM. PT REQUIRED ASSISTANCE TO WIPE. PT HAD BM DOWN HIS LEGS AND UP HIS BACK, HIS SWEAT PANTS ARE ALSO SOILED WITH STOOL. ASSISTED PT OUT OF PANTS AND CLEANED UP, PT ASKED TO HAVE KEYS FROM SWEAT PANTS PLACED IN BELONGING BAG IN MAIN ROOM. AND HIS SOILED PANTS IN BELONGINGS BAG IN BATHROOM.
--- NOTE | 2022-01-23 03:57 | NUR ---
PT UP TO BR AGAIN, TOOK OFF bipap, DID NOT WORE o2 WHICH IS AT BEDSIDE READY. HAD ANOTHER EPISODE OF STRONG SMELLING SEMILIQUID BM. RED BUTTOCKS, BARRIER CREAM APPLIED, CONT TO DECLINE TO USE URINARY HAT. VOIDING. BACK TO BED, SLIGHT SOB ON RETURNS, SATS 88% P101 R26. BIPAP BACK ON, CPOX AT BEDSIDE, BACK TO BED, ENCOURAGE TO ELEVATE LEGS, TELE#[address]
--- NOTE | 2022-01-23 04:46 | NUR ---
PT HAS USED BIPAP, CURRENTLY ON 4LNC, CPOX ON AT BEDSIDE, SATS WNL. PT TAKES OFF BOTH O2- WITH LONG REACH TUBING AND BIPAP OFF WHEN GETTING UP TO BR, INSTRUCTED , NOT COMPLIANT. DESATS TO 88% AND INCREASED RESP AND PULSE ON RETURN. HAS RECEIVED A NEB TX. LUNGS WERE INITIALLY WITH INSPIRATORY AND EXPIRATORY WHEEZING, MUCH IMPROVED AFTER NEBS ABD USING BIPAP. CRACKLES BILAT AUSCULTATED, HAS DRY NON PRODUCTIVE COUGH. TELE#[address] SR, HAS DENIES C/O CP. SL PATENT. HAS VOIDED QS. TAKES URINARY MEASUREMENT HAT OFF TOILET. HAS BEEN INCONTINENT OF SEMILIQUID BROWN COLORED LARGE AMOUNTS OF BM. SKIN CARE DONE, BARRIER CREAM TO BUTTOCKS. PT HAS ASKED FOR AND GIVEN SEVERAL SNACKS AND SANDWICH BOXES THIS SHIFT.USES CALL LIGHT, TOLERATING DIET AND FLUIDS WELL, WAS VERY ANXIOUS, IRRITABLE AND RESETLESS AT BEGINING OF SHIFT. CURRENTLY CALMER, FOLLOWING INSTRUCTIONS AND SITTING UP IN CHAIR, ENCOURAGED TO ELEVATE LEGS, NOT VERY RECETIVE WITH THAT TEACHING. CONT TO ENCOURAGE POC, COMPLIANCE. HAD REFUSED TO HAVE NICOTINE PATCH OFF EARLIER, THEN EARLY THIS AM ASKED FOR AM DOSE. AM NICOTINE PATCH APPLIED AT THAT TIME, WILL NOTIFY INCOMING SHIFT. CALM, WATCHING TV
--- NOTE | 2022-01-23 05:39 | NUR ---
Pt asking for more pudins and sandwich box given earlier has tolerated well. uses call light
--- NOTE | 2022-01-23 06:36 | NUR ---
pt using BIPAP, sats 95%, P71, resp 17, comfortable. turns self in bed
--- NOTE | 2022-01-23 09:00 | NUR ---
REPORT RECEIVED FROM NIGHT RN AND PT. CARE RESUMED. PT. IS UP IN THE CHAIR, ALERT AND ORIENTED. HE IS AGITATED AND C/O PEOPLE MOVING HIS BAGS. MOVED HIS BAG CLOSER TO PT. ASSESSMENT COMPLETED. HE DENIES PAIN. PT. ASSISTED WITH ORDERING LUNCHES. WHEEZES PRESENT IN ALL LUNG LOBES. O2 SAT IS 92% ON 4L NC. PT. DENIES FURTHER NEEDS. LEFT RESTING WITH CALL LIGHT IN REACH.
--- NOTE | 2022-01-23 11:34 | NUR ---
ROUNDING ON PT. HE IS RESTING IN THE CHAIR WITH CPOX IN PLACE. ON 4L O2 NC AND 02 SAT IS 93%. DENIES SOB OR PAIN. LEFT RESTING WITH CALL LIGHT IN REACH.
--- NOTE | 2022-01-23 13:23 | NUR ---
PT. USED CALL LIGHT TO REQUEST NEB. TX. RT CALLED AND IS BUSY AT THIS TIME. EXPLAINED TO PT. IT WILL BE A FEW MINUTES UNTIL RT IS ABLE TO ADMIN. PT. BECAME ANGRY AND YELLED "I TALKED TO THE AND WHEN I SAY I WANT A NEB TX I GET ONE!" EXPLAINED TO PT. THAT THEY ARE AVAILABLE Q2H AND WHEN RT IS AVAILABLE. IT WILL BE ADMIN. O2 SAT IS 94% AND PT ON BIPAP. RESP. ARE 21. WILL CONTINUE TO MONITOR.
--- NOTE | 2022-01-23 13:39 | NUR ---
PT. ON BIPAP AND NEB TX ADMIN. ASSESSMENT COMPLETED. LUNGS DIM THROUGHOUT AND RR IS 25. 02 SAT. IS 96%. HE DENIES FURTHER NEEDS. LEFT RESTING WITH CALL LIGHT ON REACH.
--- NOTE | 2022-01-23 13:48 | NUR ---
СЕРГЕЙ AGUERO INFORMED ME PT IS ON BIPAP AND RECOMMENDED I CHECK BACK LATER
--- NOTE | 2022-01-23 14:49 | NUR ---
ROUNDING ON PT. HE IS UP IN THE CHAIR ON NC AT 4L. HE DENIES NEEDS AT THIS TIME.
--- NOTE | 2022-01-23 15:41 | NUR ---
NO CHANGE IN DISCHARGE PLAN AT THIS TIME, WILL CONTINUE TO FOLLOW UP WITH PATIENT.
--- NOTE | 2022-01-23 16:19 | NUR ---
PATIENT DID EVERYTHING ON HIS BED BATH EXCEPT WASH HIS BACK. ALSO HELPED HIM SHAMPOO HIS HAIR. AND COMBED IT. ALSO I WASHED BEHIND HIS EARS. NEW GOWN. PATIENT SAID HE FEELS BETTER. ALSO CHANGED HIS BED LINENS TODAY.
--- NOTE | 2022-01-23 16:26 | NUR ---
PT. CALLED AND REQUESTED NEB TX. [employer]. CALLED AND ON THE WAY.
--- NOTE | 2022-01-23 16:39 | NUR ---
TELE DC'D PER ORDER
--- NOTE | 2022-01-23 17:18 | NUR ---
O2 SAT IS 97% ON 4L NC. TITRATED TO 3L AND WILL MONITOR.
--- NOTE | 2022-01-23 22:43 | NUR ---
pT LAYING ON LEFT SIDE, RESTING, RESP EVEN, UNLABORED. CPOX ON 95% ON 1LNC. O2 DECREASED TO 0.5LNC PER CPOX READING 93% AFTER 10 MINUTES. CALL LIGHT AND FLUIDS AT BEDSIDE. CONT TO DISCHARGE FOULD SMELLING FLATUS. HAD ANOTHER LIQUID BM A FEW MINUTES AGO.
--- NOTE | 2022-01-23 23:36 | NUR ---
Pt laying down on left side, eyes closed, no distress on 0.5L NC. cpox reading 91% p69. R 15, no distress. call light and fluidsa t bedside
--- NOTE | 2022-01-23 23:53 | NUR ---
Pt turned bathroom call light on. had another liquid bm, and voided, needs help wiping. lotion applied to red area between buttocks. Pt face red flushed colored. Had taken O2 off, back to bed, increaed respiration noted and sob. cpox and o2 back in place, o2 increaed to 2lnc, sats werre 80% on room air 85-89% right away on 2L, pulse 105. placed back on bipap at his requests. after a few minutes. sats 96%, pulse 88, resp 17. back to bed, no changes in lung sounds from earlier. Pt instructed to not take O2 off when wearing O2 NC. O2NC tubing placed at hands reach easily available to pt if he gets up again while using BIPAP.
--- NOTE | 2022-01-24 01:54 | NUR ---
Pt's br call light liv off. whole bed changed. Was incontinent of liquid dark brown bm plus had some semiliquid and some formed bm, voided. required help wiping, lotion to red in between buttocks area. was on BIPAP prior to getting up. did not used O2, O2 tubing at bedside. cpox on, sitting edge of bed resp 34, pulse 110, sats 82%, back to bed. BIPAP placed on after 1-2 minutes recuperated easily sats 96%, p88, resp 20, turns and repositions self in bed. call light at bedside, O2 tubing on 1L at hands reach , again instructed on to use O2 NC when up to br, stated ok, cont to reinforce.
--- NOTE | 2022-01-24 02:10 | NUR ---
Pt up to br again, was incontinent of liquid dark brown bm. Required help wiping. barrier skin lotion applied.. wore O2 2LNC. see Vitals taken at that time. back to bed and on BIPAP. recuperated very quickly. praised for using O2 after taking bipap off.
--- NOTE | 2022-01-24 03:33 | NUR ---
Pt using BIPAP, no s/sx distress, cpox on at bedside, sats 96% p72, R17. comfortable. turns and repositions self in bed
--- NOTE | 2022-01-24 04:51 | NUR ---
Begining of shift, up in chair, legs dependent, Pt was on 0.5L NC, cpox on. sats WNL. used BIPAP, took off when getting up to BR, did not used O2 event ranjeet it was ready for him to use. desatted down to 80 and mid 80's% resp 24-32, and pulse 90-115, increased red facial features and sob with exertion. cont to instruct to use O2 NC when up. did not used several times, see vitals flow sheet for more info. this last time used O2 2LNC and tolerated much better, resp 20-24, sats 90% on return, less sob noted. back on BIPAP recuperates very easily. SL patent. has been up to void several times voising QS, declines to use urinal or toilet hat. was incontinent of liquid bm 1x. total bed change done, and had 4 episodes of semiliquid and chunks of form bm when up to BR, needs help wiping. uses br call light. red area between buttocks. barrier cream applied, very cooperative. CBG was 279, ss insulin give, teaching done was very cooperative. tolerating diet and fluids well, no emesis. turns and repositions self in bed, edema to LE, encouraged to elevate them. uses call light. has slept off and on this shift
--- NOTE | 2022-01-24 07:45 | NUR ---
THIS NURSE IN THE ROOM FOR MORNING ASSESSMENT AND FINANCE CONSULTANT. ASKS WHY HIS BREAKFAST AND THE MD IS NOT HERE. EXPLAINED TO PT. BREAKFAST WILL BE HERE SOON AND MD HERE AFTER 0930. PT. BECAME AGITATED. REFUSED ASSESSMENT. PT. STATES "I CAN TAKE BETTER CARE OF MYSELF AT HOME". DISCUSSED IMPORTANCE OF TX AND RISKS OF LEAVING. PT. STATES HE WANTS TO LEAVE NOW AND BEGAN TO DRESS HIMSELF. TOOK OFF 02 AND PULSE OX. MD NOTIFIED BY PHONE. AMA FORM COMPLETED AND SIGNED BY PT. AND RN. DISCUSSED RISKS AND ADVISED OF S/SX TO SEEK HELP. IV REMOVED WITH CATH INTACT. LEFT WITH ALL BELONGINGS VIA WHEELCHAIR WITH RN AND TAXI CALLED.
== END 2022-01-24 08:35 | disposition left against medical advice (07) | DRG 189 ==
LOC: ED 02:20 → MS 02:21
PROVIDERS: ADMIT Internal Medicine; ATTEND Internal Medicine
PROC: 5A09357 Assistance with Respiratory Ventilation, Less than 24 Consecutive Hours, Continuous Positive Airway Pressure (ICD-10-PCS; principal; 2022-01-22)
DX: J96.02 Acute respiratory failure with hypercapnia (principal); Z68.42 Body mass index [BMI] 45.0-49.9, adult; J43.9 Emphysema, unspecified; E11.9 Type 2 diabetes mellitus without complications; J96.01 Acute respiratory failure with hypoxia; G89.4 Chronic pain syndrome; Z98.890 Other specified postprocedural states; Z91.030 Bee allergy status; I50.9 Heart failure, unspecified; I11.0 Hypertensive heart disease with heart failure; Z90.49 Acquired absence of other specified parts of digestive tract; Z79.899 Other long term (current) drug therapy; Z20.822 Contact with and (suspected) exposure to COVID-19; Z79.82 Long term (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 aspirin; E66.01 Morbid (severe) obesity due to excess calories
CPT/HCPCS: 36415; 36600; 71045; 80048; 80053; 82803; 83036; 83880; 84484; 85025; 87502; 93005; 93010; 94640; 94660; 94762; 96374; 99285-25; A9270; J1650; J1815; J2920; J2930; U0003

== ENCOUNTER 2022-05-03 17:26 | Emergency (ER) | payer MEDICARE ==
[~2022-05-03] VITALS: Ht 185.4 cm; Wt 167.8 kg
[~2022-05-03 17:26] MED LIST changes: +GABAPENTIN300 MG PO
--- OUTSIDE RECORDS SUMMARY | 2022-05-03 17:28 | XMS ---
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 Physician Movie Projectionist Current PHONE: Unknown GERMAN HERNANDEZ Nurse Alyson Current PHONE: Unknown IVETTE MARTI Nurse Practitioner Reji MANCLILA PHONE: [phone] [facility] Current PHONE: [phone] Janki has no Care Guidelines for this patient. Care History Medical/Surgical 01/04/2020 [facility] - PATIENT RECVD NEBULIZER MEDICATION TODAY 01/04/2020. - NEBULIZER MACHINE WILL BE RECEIVED ON Thursday01/06/2020 AND PATIENT WILL BE SHOWN HOW TO USE THE NEBULIZER MACHINE. - PATIENT RECEIVED HIS HEAVY DUTY WALKER ON Thursday01/03/20. E.D. VISIT COUNT ([address] [facility]. TOTAL 4 NOTE: Visits indicate total known visits. ED/UCC VISIT TRACKING (12 MO.) 05/03/2022 17:27 [facility] TYPE: Emergency COMPLAINT: - CHEST PAIN, SOB 01/22/2022 02:20 [facility] TYPE: Emergency COMPLAINT: - SOB 09/10/2021 21:15 [facility] TYPE: Emergency COMPLAINT: - DIFFICULTY BREATHING 09/07/2021 15:05 [facility] TYPE: Emergency COMPLAINT: - CHEST PAIN INPATIENT VISIT TRACKING (12 MO.) 01/22/2022 11:[address] 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 - Acute respiratory failure with hypercapnia - Chronic obstructive pulmonary disease with (acute) exacerbation - Chronic pain syndrome - Acute respiratory failure with hypercapnia - Body mass index [BMI] 45.0-49.9, adult - Type 2 diabetes mellitus without complications - Type 2 diabetes mellitus without complications - Morbid (severe) obesity due to excess calories - Other [place] [facility] (current) drug therapy - Emphysema, unspecified - Acute respiratory failure with hypoxia - Other specified postprocedural states - Acute respiratory failure with hypoxia - Emphysema, unspecified - Acquired absence of other specified parts of digestive tract - Heart failure, unspecified - Other specified postprocedural states - Morbid (severe) obesity due to excess calories - Heart failure, unspecified 09/14/2021 13:54 [facility] TYPE: Medical Surgical COMPLAINT: - ACUTE ON CHRONIC RESP. FAILURE DIAGNOSES: - Tobacco abuse counseling - Morbid (severe) obesity with alveolar hypoventilation - care home (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 aspirin - Acquired absence of other specified parts of digestive tract - Patient's noncompliance with dietary regimen - Essential (primary) hypertension - Body mass index [BMI] 45.0-49.9, adult - Adverse effect of glucocorticoids and synthetic analogues, initial encounter - Acute and chronic respiratory failure with hypercapnia - Personal history of nicotine dependence - Contact with and (suspected) exposure to COVID-19 - Acute and chronic respiratory failure with hypoxia - 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 - computer terminal operator (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 systemic steroids - Acquired absence of other specified parts of digestive tract - Essential (primary) hypertension - Type 2 diabetes mellitus with hyperglycemia - Personal history of nicotine dependence - Emphysema, unspecified - 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 - Other specified postprocedural states - 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 - Other specified postprocedural states - Morbid (severe) obesity with alveolar hypoventilation - Type 2 diabetes mellitus with hyperglycemia - Body mass index [BMI] 45.0-49.9, adult - Contact with and (suspected) exposure to COVID-19 - Tobacco abuse counseling - Acute and chronic respiratory failure with hypercapnia - Emphysema, unspecified - Other insect allergy status - care home (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 systemic steroids - Other insect allergy status - Patient's noncompliance with dietary regimen - Adverse effect of glucocorticoids and synthetic analogues, initial encounter 09/07/2021 17:53 [facility] TYPE: Medical Surgical COMPLAINT: - ACUTE ON CHRONIC HYPOXIC RESPIRATORY FAILURE DIAGNOSES: - Acute and chronic respiratory failure with hypoxia - Contact with and (suspected) exposure to COVID-19 - Other chest pain - Contact with and (suspected) exposure to COVID-19 - Hypertensive heart disease with heart failure - Other [place] [facility] (current) drug therapy - Other insect allergy status - Allergy status to unspecified drugs, medicaments and biological substances - Allergy status to unspecified drugs, medicaments and biological substances - Other specified postprocedural states - Emphysema, unspecified - Body mass index [BMI] 45.0-49.9, adult - Other chest pain - Morbid (severe) obesity with alveolar hypoventilation - Heart failure, unspecified - 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 - Hypertensive heart disease with heart failure - Other specified postprocedural states - Acquired absence of other specified parts of digestive tract - Acquired absence of other specified parts of digestive tract - Other [place] [facility] (current) drug therapy - Personal history of nicotine dependence - Morbid (severe) obesity with alveolar hypoventilation - Other insect allergy status - Heart failure, unspecified - Personal history of nicotine dependence - Body mass index [BMI] 45.0-49.9, adult - 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
[2022-05-03] MEDS ORDERED: PREDNISONE20 MG PO (18:59)
--- NOTE | 2022-05-05 00:10 | EKG ---
[facility] [address] [place] [address] Signed Sinus tachycardia Anteroseptal infarct (cited on or before 25-DEC-2019) Abnormal ECG When compared with ECG of 22-JAN-2022 02:24, premature ventricular complexes are no longer present Confirmed by DAMON NEVILLE MD ([id number]) on 05/05/2022 12:10:13 AM Electronically Signed By: DAMON NEVILLE MD 05/05/22 0010 PATIENT NAME: TY GAINES VIDAL Electrocardiogram DATE OF : 55 PHYSICIAN: DAMON NEVILLE MD REPORT #: [id number] REPORT IS CONFIDENTIAL AND NOT TO BE RELEASED WITHOUT AUTHORIZATION
== END 2022-05-03 19:50 | disposition home or self-care (01) ==
LOC: ED 17:26
DX: J43.9 Emphysema, unspecified (principal); I50.9 Heart failure, unspecified; Z87.891 Personal history of nicotine dependence; Z91.030 Bee allergy status; Z79.899 Other long term (current) drug therapy; Z79.82 Long term (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 aspirin; Z79.84 Long term (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 oral hypoglycemic drugs; Z20.822 Contact with and (suspected) exposure to COVID-19
CPT/HCPCS: 36415; 71045; 80053; 83735; 83880; 84484; 85025; 85060; 87502; 93005; 93010; 94640; 96374; 99285-25; C9803; J2930; U0003

== ENCOUNTER 2023-01-28 01:54 | Inpatient (IN) | payer MEDICARE ==
[~2023-01-28] VITALS: Ht 185.4 cm; Wt 165.2 kg
[2023-01-28] VITALS (15 sets, daily range): BP systolic 112–138; BP diastolic 51–78
--- OUTSIDE RECORDS SUMMARY | ~2023-01-28 | XMS | Continuity of Care Document ---
Demographics + + + | Address | [address] | | | [place] [address] | + + + | Preferred Language | Unknown | + + + | Marital Status | Never | + + + | Jain Affiliation | Unknown | + + + | Race | White | + + + | Ethnic Group | Not or | + + + Author + + + | Author | [facility] | + + + | Organization | [facility] | + + + | Address | [address] | | | [place] [address] | + + + | Phone | | + + + Care Team Providers + + + + | Care Spout Positioner Name | Role | Phone | + + + + Unavailable | Unavailable | + + + + Unavailable | Unavailable | + + + + Unavailable | Unavailable | + + + + Unavailable | Unavailable | + + + + Allergies and Intolerances + + + + + + | date | description | facility | reaction | severity | + + + + + + | (no date) | Wasp venom | [facility] | (no reaction) | (no severity) | | [facility] | | | + + + + + + | (no date) | NO KNOWN | [facility] | (no reaction) | (no severity) | | | ALLERGIES | [facility] | | | | | | Medicine | | | + + + + + + | (no date) | Wasp venom | [facility] | (no reaction) | (no severity) | | | [facility] | | | + + + + + + Encounters No information. Functional Status No information. Immunizations No information. Medications + + + + | date | description | facility | + + + + | 2022-01-24 00:00 | IPRATROPIUM/ALBUTEROL | [facility] | | | SULFATE | | + + + + | 2022-05-09 00:00 | IPRATROPIUM/ALBUTEROL | [facility] | | | SULFATE | | + + + + | 2019-12-26 00:00 | CARVEDILOL | [facility] | + + + + | 2022-01-24 00:00 | CARVEDILOL | [facility] | + + + + | 2022-05-09 00:00 | CARVEDILOL | [facility] | + + + + | 2022-01-24 00:00 | ASPIRIN | [facility] | + + + + | 2022-05-09 00:00 | ASPIRIN | [facility] | + + + + | 2022-01-24 00:00 | GABAPENTIN | [facility] | + + + + | 2022-05-09 00:00 | GABAPENTIN | [facility] | + + + + | 2022-01-24 00:00 | LISINOPRIL | [facility] | + + + + | 2022-05-09 00:00 | LISINOPRIL | [facility] | + + + + | 2019-12-26 00:00 | predniSONE | [facility] | + + + + | 2022-05-03 00:00 | predniSONE | [facility] | + + + + | 2021-09-17 00:00 | METFORMIN HCL | [facility] | + + + + Problems + + + + | date | description | facility | + + + + | 2015-11-30 12:42:05 | Essential (primary) | [facility] | | | hypertension | Medicine | + + + + | 2015-11-30 12:42:05 | Chronic systolic | [facility] | | | (congestive) heart failure | Medicine | + + + + | 2015-11-30 12:42:05 | Other chest pain | [facility] | | | | Medicine | + + + + | 2015-11-30 12:42:05 | Encounter for general | [facility] | | | adult medical examination | Medicine | | | without abnormal findings | | + + + + | 2015-11-30 12:42:05 | Encounter for immunization | [facility] | | | | Medicine | + + + + | 2019-12-25 00:00 | Hypoxia | [facility] | + + + + | 2019-12-26 00:00 | Acute exacerbation of | [facility] | | | chronic obstructive | | | | pulmonary disease | | + + + + | 2019-12-26 00:00 | Acute respiratory failure | [facility] | + + + + | 2019-12-26 00:00 | Chest pain | [facility] | + + + + | 2019-12-29 00:00 | Chronic obstructive | [facility] | | | pulmonary disease with | | | | acute exacerbation | | + + + + | 2019-12-29 00:00 | Acute back pain | [facility] | + + + + | 2021-09-14 13:54 | Type 2 diabetes mellitus | [facility] | | | with hyperglycemia [facility] | + + + + | 2021-09-14 13:54 | Morbid (severe) obesity | [facility] | | | with alveolar | [facility] | | | hypoventilation | | + + + + | 2021-09-14 13:54 | Essential (primary) | [facility] | | | hypertension | [facility] | + + + + | 2021-09-14 13:54 | Emphysema, unspecified | [facility] | | | | [facility] | + + + + | 2021-09-14 13:54 | Acute and chronic | [facility] | | | respiratory failure with | [facility] | | | hypoxia | | + + + + | 2021-09-14 13:54 | Acute and chronic | [facility] | | | respiratory failure with | [facility] | | | hypercapnia | | + + + + | 2021-09-14 13:54 | Adverse effect of | [facility] | | | glucocorticoids and | [facility] | | | synthetic analogues, | | | | initial encounter | | + + + + | 2021-09-14 13:54 | Contact with and | [facility] | | | (suspected) exposure to | [facility] | | | COVID-19 | | + + + + | 2021-09-14 13:54 | Body mass index [BMI] | [facility] | | | 45.0-49.9, adult | [facility] | + + + + | 2021-09-14 13:54 | Tobacco abuse counseling | [facility] | | | | [facility] | + + + + | 2021-09-14 13:54 | FPC (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 | [facility] | | | systemic steroids | [facility] | + + + + | 2021-09-14 13:54 | FPC (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 | [facility] | | | aspirin | [facility] | + + + + | 2021-09-14 13:54 | Other fpc (current) | [facility] | | | drug therapy | [facility] | + + + + | 2021-09-14 13:54 | Personal history of | [facility] | | | nicotine dependence | [facility] | + + + + | 2021-09-14 13:54 | Acquired absence of other | [facility] | | | specified parts of | [facility] | | | digestive tract | | + + + + | 2021-09-14 13:54 | Other insect allergy | [facility] | | | status | [facility] | + + + + | 2021-09-14 13:54 | Patient's noncompliance | [facility] | | | with dietary regimen | [facility] | + + + + | 2021-09-14 13:54 | Other specified | [facility] | | | postprocedural states | [facility] | + + + + | 2021-09-17 13:10 | Candidiasis of skin and | [facility] | | | nail | [facility] | + + + + | 2021-09-17 13:10 | Type 2 diabetes mellitus | [facility] | | | without complications | [facility] | + + + + | 2021-09-17 13:10 | Morbid (severe) obesity | [facility] | | | due to excess calories | [facility] | + + + + | 2021-09-17 13:10 | Nicotine dependence, | [facility] | | | unspecified, uncomplicated | [facility] | + + + + | 2021-09-17 13:10 | Nicotine dependence, | [facility] | | | cigarettes, uncomplicated | [facility] | + + + + | 2021-09-17 13:10 | Anxiety disorder, | [facility] | | | unspecified | [facility] | + + + + | 2021-09-17 13:10 | Insomnia, unspecified | [facility] | | | | [facility] | + + + + | 2021-09-17 13:10 | Essential (primary) | [facility] | | | hypertension | [facility] | + + + + | 2021-09-17 13:10 | 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 | | | | pectoris | | + + + + | 2021-09-17 13:10 | Heart failure, unspecified | [facility] | | | | [facility] | + + + + | 2021-09-17 13:10 | Emphysema, unspecified | [facility] | | | | [facility] | + + + + | 2021-09-17 13:10 | Chronic obstructive | [facility] | | | pulmonary disease with | [facility] | | | (acute) exacerbation | | + + + + | 2021-09-17 13:10 | Chronic respiratory | [facility] | | | failure with hypoxia | [facility] | + + + + | 2021-09-17 13:10 | Chronic respiratory | [facility] | | | failure with hypercapnia | [facility] | + + + + | 2021-09-17 13:10 | Acute and chronic | [facility] | | | respiratory failure with | [facility] | | | hypoxia | | + + + + | 2021-09-17 13:10 | Acute and chronic | [facility] | | | respiratory failure with | [facility] | | | hypercapnia | | + + + + Procedures No information. Results/Labs +--------+--------+ +---------+--------+---------+ | test | date | facility | value | unit | notes | +--------+--------+ +---------+--------+---------+ + + | Result panel 1 | + + + + + +--------+ + + | | 2022-01-22 | [facility] | 74.8 | (missing) | (missing) | | (unavailable | 02:27 [facility] | | | + + + +--------+ + + + + | Result panel 2 | + + + + + +--------+ + + | | 2022-01-22 | [facility] | 15.9 | (missing) | (missing) | | (unavailable | 02:27 [facility] | | | | + + + +--------+ + + + + | Result panel 3 | + + + + + +-------+ + + | | 2022-01-22 | [facility] | 7.2 | (missing) | (missing) | | (unavailable | 02:27 [facility] | | | | + + + +-------+ + + + + | Result panel 4 | + + + + + +-------+ + + | | 2022-01-22 | [facility] | 1.2 | (missing) | (missing) | | (unavailable | 02:27 [facility] | | | | + + + +-------+ + + + + | Result panel 5 | + + + + + +-------+ + + | | 2022-01-22 | [facility] | 0.9 | (missing) | (missing) | | (unavailable | 02:27 [facility] | | | | + + + +-------+ + + + + | Result panel 6 | + + + + + +--------+ + + | | 2022-01-22 | [facility] | 7.35 | (missing) | (missing) | | (unavailable | 02:27 [facility] | | | + + + +--------+ + + + + | Result panel 7 | + + + + + +--------+ + + | | 2022-01-22 | [facility] | 64.4 | (missing) | (missing) | | (unavailable | 02:27 [facility] | | | + + + +--------+ + + + + | Result panel 8 | + + + + + +-------+ + + | | 2022-01-22 | [facility] | 479 | (missing) | (missing) | | (unavailable | 02:27 [facility] | | | + + + +-------+ + + + + | Result panel 9 | + + + + + +--------+ + + | | 2022-01-22 | [facility] | 36.0 | (missing) | (missing) | | (unavailable | 02:27 [facility] | | | + + + +--------+ + + + + | Result panel 10 | + + + + + +------+ + + | | 2022-01-22 | [facility] | 10 | (missing) | (missing) | | (unavailable | 02:27 [facility] | | | + + + +------+ + + + + | Result panel 11 | + + + + + +---------+ + + | | 2022-01-22 | [facility] | 100.0 | (missing) | (missing) | | (unavailable | 02:27 [facility] | | | + + + +---------+ + + + + | Result panel 12 | + + + + + + + + + | | 2022-01-22 | [facility] | UNKNOWN | (missing) | (missing) | | (unavailable | 02:27 [facility] | | | + + + + + + + + + | Result panel 13 | + + + + + +------+ + + | | 2022-01-22 | [facility] | 38 | (missing) | (missing) | | (unavailable | 02:27 [facility] | | | + + + +------+ + + + + | Result panel 14 | + + + + + +-------+ + + | | 2022-01-22 | [facility] | 7.4 | (missing) | (missing) | | (unavailable | 02:27 [facility] | | | + + + +-------+ + + + + | Result panel 15 | + + + + + +-------+ + + | | 2022-01-22 | [facility] | 2.9 | (missing) | (missing) | | (unavailable | 02:27 [facility] | | | + + + +-------+ + + + + | Result panel 16 | + + + + + +-------+ + + | | 2022-01-22 | [facility] | 4.5 | (missing) | (missing) | | (unavailable | 02:27 [facility] | | | + + + +-------+ + + + + | Result panel 17 | + + + + + +--------+ + + | | 2022-01-22 | [facility] | 0.64 | (missing) | (missing) | | (unavailable | 02:27 [facility] | | | + + + +--------+ + + + + | Result panel 18 | + + + + + +------+ + + | | 2022-01-22 | [facility] | 13 | (missing) | (missing) | | (unavailable | 02:27 [facility] | | | + + + +------+ + + + + | Result panel 19 | + + + + + +------+ + + | | 2022-01-22 | [facility] | 27 | (missing) | (missing) | | (unavailable | 02:27 [facility] | | | + + + +------+ + + + + | Result panel 20 | + + + + + +------+ + + | | 2022-01-22 | [facility] | 84 | (missing) | (missing) | | (unavailable | 02:27 [facility] | | | + + + +------+ + + + + | Result panel 21 | + + + + + +--------+ + + | | 2022-01-22 | [facility] | 13.1 | (missing) | (missing) | | (unavailable | 02:27 [facility] | | | + + + +--------+ + + + + | Result panel 22 | + + + + + + + + + | | 2022-01-22 | [facility] | NEGATIVE | (missing) | (missing) | | (unavailable | 02:45 | [facility] | | | + + + + + + + + + | Result panel 23 | + + + + + + + + + | | 2022-01-22 | [facility] | NEGATIVE | (missing) | (missing) | | (unavailable | 02:45 [facility] | | | + + + + + + + + + | Result panel 24 | + + + + + + + + + | | 2022-01-22 | [facility] | NEGATIVE | (missing) | (missing) | | (unavailable | 02:45 [facility] | | | + + + + + + + + + | Result panel 25 | + + + + + + + + + | | 2022-01-22 | [facility] | NEGATIVE | (missing) | (missing) | | (unavailable | 02:45 [facility] | | | + + + + + + + + + | Result panel 26 | + + + + + +--------+ + + | | 2022-01-23 | [facility] | 17.4 | (missing) | (missing) | | (unavailable | 05:42 [facility] | | | + + + +--------+ + + + + | Result panel 27 | + + + + + +--------+ + + | | 2022-01-23 | [facility] | 5.32 | (missing) | (missing) | | (unavailable | 05:42 [facility] | | | + + + +--------+ + + + + | Result panel 28 | + + + + + +--------+ + + | | 2022-01-23 | [facility] | 14.3 | (missing) | (missing) | | (unavailable | 05:42 [facility] | | | + + + +--------+ + + + + | Result panel 29 | + + + + + +--------+ + + | | 2022-01-23 | [facility] | 45.4 | (missing) | (missing) | | (unavailable | 05:42 [facility] | | | + + + +--------+ + + + + | Result panel 30 | + + + + + +--------+ + + | | 2022-01-23 | [facility] | 85.3 | (missing) | (missing) | | (unavailable | 05:42 [facility] | | | + + + +--------+ + + + + | Result panel 31 | + + + + + +--------+ + + | | 2022-01-23 | [facility] | 26.9 | (missing) | (missing) | | (unavailable | 05:42 [facility] | | | + + + +--------+ + + + + | Result panel 32 | + + + + + +--------+ + + | | 2022-01-23 | [facility] | 31.5 | (missing) | (missing) | | (unavailable | 05:42 [facility] | | | + + + +--------+ + + + + | Result panel 33 | + + + + + +--------+ + + | | 2022-01-23 | [facility] | 14.9 | (missing) | (missing) | | (unavailable | 05:42 [facility] | | | + + + +--------+ + + + + | Result panel 34 | + + + + + +-------+ + + | | 2022-01-23 | [facility] | 201 | (missing) | (missing) | | (unavailable | 05:42 [facility] | | | + + + +-------+ + + + + | Result panel 35 | + + + + + +------+ + + | | 2022-01-23 | [facility] | 89 | (missing) | (missing) | | (unavailable | 05:42 [facility] | | | + + + +------+ + + + + | Result panel 36 | + + + + + +-----+ + + | | 2022-01-23 | [facility] | 9 | (missing) | (missing) | | (unavailable | 05:42 [facility] | | | + + + +-----+ + + + + | Result panel 37 | + + + + + +-----+ + + | | 2022-01-23 | [facility] | 1 | (missing) | (missing) | | (unavailable | 05:42 [facility] | | | + + + +-----+ + + + + | Result panel 38 | + + + + + +-----+ + + | | 2022-01-23 | [facility] | 1 | (missing) | (missing) | | (unavailable | 05:42 [facility] | | | + + + +-----+ + + + + | Result panel 39 | + + + + + + + + + | | 2022-01-23 | [facility] | PRESENT | (missing) | (missing) | | (unavailable | 05:42 [facility] | | | + + + + + + + + + | Result panel 40 | + + + + + + + + + | | 2022-01-23 | [facility] | PRESENT | (missing) | (missing) | | (unavailable | 05:42 [facility] | | | + + + + + + + + + | Result panel 41 | + + + + + +-------+---------+ + | | 2022-01-23 | [facility] | 225 | mg/dL | (missing) | | (unavailable | 05:42 [facility] | | | + + + +-------+---------+ + + + | Result panel 42 | + + + + + +------+---------+ + | | 2022-01-23 | [facility] | 18 | mg/dL | (missing) | | (unavailable | 05:42 [facility] | | | + + + +------+---------+ + + + | Result panel 43 | + + + + + +--------+---------+ + | | 2022-01-23 | [facility] | 0.86 | mg/dL | (missing) | | (unavailable | 05:42 [facility] | | | + + + +--------+---------+ + + + | Result panel 44 | + + + + + +------+ + + | | 2022-01-23 | [facility] | 96 | (missing) | (missing) | | (unavailable | 05:42 [facility] | | | + + + +------+ + + + + | Result panel 45 | + + + + + +---------+ + + | | 2022-01-23 | [facility] | 20.93 | (missing) | (missing) | | (unavailable | 05:42 [facility] | | | + + + +---------+ + + + + | Result panel 46 | + + + + + +-------+ + + | | 2022-01-23 | [facility] | 134 | (missing) | (missing) | | (unavailable | 05:42 [facility] | | | + + + +-------+ + + + + | Result panel 47 | + + + + + +-------+ + + | | 2022-01-23 | [facility] | 4.9 | (missing) | (missing) | | (unavailable | 05:42 [facility] | | | + + + +-------+ + + + + | Result panel 48 | + + + + + +------+ + + | | 2022-01-23 | [facility] | 98 | (missing) | (missing) | | (unavailable | 05:42 [facility] | | | + + + +------+ + + + + | Result panel 49 | + + + + + +------+ + + | | 2022-01-23 | [facility] | 31 | (missing) | (missing) | | (unavailable | 05:42 [facility] | | | + + + +------+ + + + + | Result panel 50 | + + + + + +-------+ + + | | 2022-01-23 | [facility] | 9.9 | (missing) | (missing) | | (unavailable | 05:42 [facility] | | | + + + +-------+ + + + + | Result panel 51 | + + + + + +-------+---------+ + | | 2022-01-23 | [facility] | 8.9 | mg/dL | (missing) | | (unavailable | 05:42 [facility] | | | + + + +-------+---------+ + + + | Result panel 52 | + + + + + +-------+ + + | | 2022-01-23 | [facility] | 6.8 | (missing) | (missing) | | (unavailable | 05:42 [facility] | | | + + + +-------+ + + + + | Result panel 53 | + + + + + +-------+ + + | | 2022-01-24 | [facility] | 266 | (missing) | (missing) | | (unavailable | 07:26 [facility] | | | + + + +-------+ + + + + | Result panel 54 | + + + + + + + + + | | 2022-05-03 | [facility] | NEGATIVE | (missing) | (missing) | | (unavailable | 17:59:08 [facility] | | | + + + + + + + + + | Result panel 55 | + + + + + + + + + | | 2022-05-03 | [facility] | NEGATIVE | (missing) | (missing) | | (unavailable | 17:59:08 [facility] | | | + + + + + + + + + | Result panel 56 | + + + + + + + + + | | 2022-05-03 | [facility] | NEGATIVE | (missing) | (missing) | | (unavailable | 17:59:08 [facility] | | | + + + + + + + + + | Result panel 57 | + + + + + + + + + | | 2022-05-03 | [facility] | NEGATIVE | (missing) | (missing) | | (unavailable | 17:59:08 [facility] | | | + + + + + + + + + | Result panel 58 | + + + + + +--------+ + + | | 2022-05-03 | [facility] | 11.4 | (missing) | (missing) | | (unavailable | 18:07:08 [facility] | | | + + + +--------+ + + + + | Result panel 59 | + + + + + +-------+ + + | | 2022-05-03 | [facility] | 146 | (missing) | (missing) | | (unavailable | 18:07:08 [facility] | | | + + + +-------+ + + + + | Result panel 60 | + + + + + +--------+ + + | | 2022-05-03 | [facility] | 67.2 | (missing) | (missing) | | (unavailable | 18:07:08 [facility] | | | + + + +--------+ + + + + | Result panel 61 | + + + + + +--------+ + + | | 2022-05-03 | [facility] | 21.8 | (missing) | (missing) | | (unavailable | 18:07:08 [facility] | | | + + + +--------+ + + + + | Result panel 62 | + + + + + +-------+ + + | | 2022-05-03 | [facility] | 7.4 | (missing) | (missing) | | (unavailable | 18:07:08 [facility] | | | + + + +-------+ + + + + | Result panel 63 | + + + + + +-------+ + + | | 2022-05-03 | [facility] | 2.7 | (missing) | (missing) | | (unavailable | 18:07:08 [facility] | | | + + + +-------+ + + + + | Result panel 64 | + + + + + +-------+ + + | | 2022-05-03 | [facility] | 0.9 | (missing) | (missing) | | (unavailable | 18:07:08 [facility] | | | + + + +-------+ + + + + | Result panel 65 | + + + + + +-------+---------+ + | | 2022-05-03 | [facility] | 123 | mg/dL | (missing) | | (unavailable | 18:07:08 [facility] | | | + + + +-------+---------+ + + + | Result panel 66 | + + + + + +------+---------+ + | | 2022-05-03 | [facility] | 16 | mg/dL | (missing) | | (unavailable | 18:07:08 [facility] | | | + + + +------+---------+ + + + | Result panel 67 | + + + + + +--------+---------+ + | | 2022-05-03 | [facility] | 0.97 | mg/dL | (missing) | | (unavailable | 18:07:08 [facility] | | | + + + +--------+---------+ + + + | Result panel 68 | + + + + + +------+ + + | | 2022-05-03 | [facility] | 86 | (missing) | (missing) | | (unavailable | 18:07:08 [facility] | | | + + + +------+ + + + + | Result panel 69 | + + + + + + + + + | | 2022-05-03 | [facility] | SEE COMMENT | (missing) | (missing) | | (unavailable | 18:07:08 [facility] | | | + + + + + + + + + | Result panel 70 | + + + + + +---------+ + + | | 2022-05-03 | [facility] | 16.49 | (missing) | (missing) | | (unavailable | 18:07:08 [facility] | | | + + + +---------+ + + + + | Result panel 71 | + + + + + +-------+ + + | | 2022-05-03 | [facility] | 136 | (missing) | (missing) | | (unavailable | 18:07:08 [facility] | | | + + + +-------+ + + + + | Result panel 72 | + + + + + +-------+ + + | | 2022-05-03 | [facility] | 4.8 | (missing) | (missing) | | (unavailable | 18:07:08 [facility] | | | + + + +-------+ + + + + | Result panel 73 | + + + + + +------+ + + | | 2022-05-03 | [facility] | 99 | (missing) | (missing) | | (unavailable | 18:07:08 [facility] | | | + + + +------+ + + + + | Result panel 74 | + + + + + +------+ + + | | 2022-05-03 | [facility] | 33 | (missing) | (missing) | | (unavailable | 18:07:08 [facility] | | | + + + +------+ + + + + | Result panel 75 | + + + + + +-------+ + + | | 2022-05-03 | [facility] | 8.8 | (missing) | (missing) | | (unavailable | 18:07:08 [facility] | | | + + + +-------+ + + + + | Result panel 76 | + + + + + +-------+---------+ + | | 2022-05-03 | [facility] | 8.9 | mg/dL | (missing) | | (unavailable | 18:07:08 [facility] | | | | + + + +-------+---------+ + + + | Result panel 77 | + + + + + +-------+---------+ + | | 2022-05-03 | [facility] | 1.9 | mg/dL | (missing) | | (unavailable | 18:07:08 | [facility] | | | | + + + +-------+---------+ + + + | Result panel 78 | + + + + + +-------+ + + | | 2022-05-03 | [facility] | 7.2 | (missing) | (missing) | | (unavailable | 18:07:08 | [facility] | | | | + + + +-------+ + + + + | Result panel 79 | + + + + + +-------+ + + | | 2022-05-03 | [facility] | 3.0 | (missing) | (missing) | | (unavailable | 18:07:08 | [facility] | | | | + + + +-------+ + + + + | Result panel 80 | + + + + + +--------+ + + | | 2022-05-03 | [facility] | 5.61 | (missing) | (missing) | | (unavailable | 18:07:08 | [facility] | | | | + + + +--------+ + + + + | Result panel 81 | + + + + + +-------+ + + | | 2022-05-03 | [facility] | 4.2 | (missing) | (missing) | | (unavailable | 18:07:08 [facility] | | | | + + + +-------+ + + + + | Result panel 82 | + + + + + +--------+ + + | | 2022-05-03 | [facility] | 0.71 | (missing) | (missing) | | (unavailable | 18:07:08 | [facility] | | | | + + + +--------+ + + + + | Result panel 83 | + + + + + +-------+ + + | | 2022-05-03 | [facility] | 0.4 | (missing) | (missing) | | (unavailable | 18:07:08 | [facility] | | | | + + + +-------+ + + + + | Result panel 84 | + + + + + +------+ + + | | 2022-05-03 | [facility] | 25 | (missing) | (missing) | | (unavailable | 18:07:08 | [facility] | | | | + + + +------+ + + + + | Result panel 85 | + + + + + +------+ + + | | 2022-05-03 | [facility] | 28 | (missing) | (missing) | | (unavailable | 18:07:08 | [facility] | | | | + + + +------+ + + + + | Result panel 86 | + + + + + +------+ + + | | 2022-05-03 | [facility] | 87 | (missing) | (missing) | | (unavailable | [facility]07:08 [facility] | | | | + + + +------+ + + + + | Result panel 87 | + + + + + +-------+ + + | | 2022-05-03 | [facility] | 9.5 | (missing) | (missing) | | (unavailable | [facility]07[facility]08 [facility] | | | | + + + +-------+ + + + + | Result panel 88 | + + + + + +--------+ + + | | 2022-05-03 | [facility] | 15.0 | (missing) | (missing) | | (unavailable | [facility]07[facility] | | | | + + + +--------+ + + + + | Result panel 89 | + + + + + +--------+ + + | | 2022-05-03 | [facility] | 46.7 | (missing) | (missing) | | (unavailable | [facility]07:08 [facility] | | | | + + + +--------+ + + + + | Result panel 90 | + + + + + +--------+ + + | | 2022-05-03 | [facility] | 83.2 | (missing) | (missing) | | (unavailable | [facility]07[facility]08 [facility] | | | | + + + +--------+ + + + + | Result panel 91 | + + + + + +--------+ + + | | 2022-05-03 | [facility] | 26.8 | (missing) | (missing) | | (unavailable | [facility]07[facility]08 [facility] | | | | + + + +--------+ + + + + | Result panel 92 | + + + + + +--------+ + + | | 2022-05-03 | [facility] | 32.2 | (missing) | (missing) | | (unavailable | [facility]07[facility] | | | | + + + +--------+ + + + + | Result panel 93 | + + + + + +--------+ + + | | 2022-05-03 | [facility] | 16.5 | (missing) | (missing) | | (unavailable | [facility]07:08 [facility] | | | | + + + +--------+ + + Social History No information. Vital Signs + + + +---------+ | date | measurement | value | units | + + + +---------+ | 2022-01-22 00:00 | BMI | 48.8 | kg/m2 | + + + +---------+ | 2022-01-22 00:00 | height_metric | 185.42 | cm | + + + +---------+ | 2022-01-22 00:00 | height_standard | 73 | in | + + + +---------+ | 2022-01-22 00:00 | weight_metric | 167.83 | kg | + + + +---------+ | 2022-01-22 00:00 | weight_standard | 370 | lb | + + + +---------+ | 2022-01-24 00:00 | BP_diastolic | 61 | mmHg | + + + +---------+ | 2022-01-24 00:00 | BP_systolic | 112 | mmHg | + + + +---------+ | 2022-01-24 00:00 | heart_rate | 65 | /min | + + + +---------+ | 2022-01-24 00:00 | o2_saturation | 96 | % | + + + +---------+ | 2022-01-24 00:00 | respiration_rate | 22 | /min | + + + +---------+ | 2022-01-24 00:00 | temperature_metric | 36.28 | C | | | | | | + + + +---------+ | 2022-01-24 00:00 | | 97.3 | F | | | temperature_standar | | | | | d | | | + + + +---------+ | 2022-05-03 00:00 | BMI | 48.8 | kg/m2 | + + + +---------+ | 2022-05-03 00:00 | BP_diastolic | 96 | mmHg | + + + +---------+ | 2022-05-03 00:00 | BP_systolic | 151 | mmHg | + + + +---------+ | 2022-05-03 00:00 | heart_rate | 96 | /min | + + + +---------+ | 2022-05-03 00:00 | height_metric | 185.42 | cm | + + + +---------+ | 2022-05-03 00:00 | height_standard | 73 | in | + + + +---------+ | 2022-05-03 00:00 | o2_saturation | 95 | % | + + + +---------+ | 2022-05-03 00:00 | respiration_rate | 16 | /min | + + + +---------+ | 2022-05-03 00:00 | temperature_metric | 36.67 | C | | | | | | + + + +---------+ | 2022-05-03 00:00 | | 98 | F | | | temperature_standar | | | | | d | | | + + + +---------+ | 2022-05-03 00:00 | weight_metric | 167.83 | kg | + + + +---------+ | 2022-05-03 00:00 | weight_standard | 370 | lb | + + + +---------+"
--- OUTSIDE RECORDS SUMMARY | ~2023-01-28 | XMS | Continuity of Care Document ---
Demographics + + + | Address | [address] | | | [place] [address] | + + + | Preferred Language | Unknown | + + + | Marital Status | Never | + + + | Worship Affiliation | Unknown | + + + | Race | White | + + + | Ethnic Group | Not or | + + + Author + + + | Author | [facility] | + + + | Organization | [facility] | + + + | Address | [address] | | | [place] [address] | + + + | Phone | | + + + Care Team Providers + + + + | Care Nurse Companion Name | Role | Phone | + [...] | (no date) | NO KNOWN | [facility] | (no reaction) | (no severity) | [...] + | 2022-01-24 00:00 | IPRATROPIUM/ALBUTEROL | [facility] | | | SULFATE | | + + + + | 2022-05-09 00:00 | IPRATROPIUM/ALBUTEROL | [facility] | | | SULFATE | | + + + + | 2019-12-26 00:00 | CARVEDILOL | [facility] | + + + + | 2022-01-24 00:00 | CARVEDILOL | [facility] | + + + + | 2022-05-09 00:00 | CARVEDILOL | [facility] | + + + + | 2022-01-24 00:00 | ASPIRIN | [facility] | + + + + | 2022-05-09 00:00 | ASPIRIN | [facility] | + + + + | 2022-01-24 00:00 | GABAPENTIN | [facility] | + + + + | 2022-05-09 00:00 | GABAPENTIN | [facility] | + + + + | 2022-01-24 00:00 | LISINOPRIL | [facility] | + + + + | 2022-05-09 00:00 | LISINOPRIL | [facility] | + + + + | 2019-12-26 00:00 | predniSONE | [facility] | + + + + | 2022-05-03 00:00 | predniSONE | [facility] | + + + + | 2021-09-17 00:00 | METFORMIN HCL | [facility] | + + + + Problems + + + + | date | description | facility | + + + + | 2015-11-30 12:42:05 | Essential (primary) | [facility] | | | hypertension | Medicine | + + + + | 2015-11-30 12:42:05 | Chronic systolic | [facility] | | | (congestive) heart failure | Medicine | + + + + | 2015-11-30 12:42:05 | Other chest pain | [facility] | | | | Medicine | + + + + | 2015-11-30 12:42:05 | Encounter for general | [facility] | | | adult medical examination | Medicine | | | without abnormal findings | | + + + + | 2015-11-30 12:42:05 | Encounter for immunization | [facility] | | | | Medicine | + + + + | 2019-12-25 00:00 | Hypoxia | [facility] | + + + + | 2019-12-26 00:00 | Acute exacerbation of | [facility] | | | chronic obstructive | | | | pulmonary disease | | + + + + | 2019-12-26 00:00 | Acute respiratory failure | [facility] | + + + + | 2019-12-26 00:00 | Chest pain | [facility] | + + + + | 2019-12-29 00:00 | Chronic obstructive | [facility] | | | pulmonary disease with | | | | acute exacerbation | | + + + + | 2019-12-29 00:00 | Acute back pain | [facility] | + + + + | 2021-09-14 [...] + + + | 2021-09-14 13:54 | care home (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 | [facility] | | | systemic steroids [facility] | + + + + | 2021-09-14 13:54 | care home (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 | [facility] | | | aspirin | [facility] | + + + + | 2021-09-14 13:54 | Other senior care (current) | [facility] | | | [...] [facility] | | | disease of [place] coronary | [facility] | | | artery [...] (missing) | | (unavailable | 02:45 | [facility] | | | | | ) | [...]
--- OUTSIDE RECORDS SUMMARY | 2023-01-28 01:58 | XMS ---
PreManage Notification: TY GAINES Security Pv Installer Tech Events No recent Security Events currently on file CRITERIA MET - PDMP CARE PROVIDERS KATJA [facility] 12/29/2019-Current PHONE: [phone] CARA TAPIA Technical Proposal Writerchase [facility] PHONE: [phone] KARLIE QUINTANILLA Internal Medicine Current PHONE: [phone] VALENTIN KIMBALL [facility] Current PHONE: Unknown PEGGY MICHELLE Nurse Practitioner: Family Current PHONE: Unknown ANNA GARCÍA Internal Medicine Current PHONE: [phone] RONALD DUNNE I. Physician Senior Medical Writer Current PHONE: Unknown GERMAN HERNANDEZ Nurse Alyson Current PHONE: Unknown IVETTE MARTI Nurse Alyson MANCILLA PHONE: [phone] [facility] Current PHONE: [phone] Janki has no Care Guidelines for this patient. Care History Medical/Surgical 01/04/2020 [facility] - PATIENT RECVD NEBULIZER MEDICATION TODAY 01/04/2020. - NEBULIZER MACHINE WILL BE RECEIVED ON Thursday01/06/2020 AND PATIENT WILL BE SHOWN HOW TO USE THE NEBULIZER MACHINE. - PATIENT RECEIVED HIS HEAVY DUTY WALKER ON Thursday01/03/20. E.D. VISIT COUNT ([address] [facility]. TOTAL 2 NOTE: Visits indicate total known visits. 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
[2023-01-28 02:09] LABS: EOSINOPHILS 2.5 % (0-6); HEMATOCRIT 47.1 % (35.0-50.0); HEMOGLOBIN 15.3 g/dL (12.0-18.0); LYMPHOCYTES 23.8 % (24-44); MCH 28.4 (27-36); MCHC 32.4 g/dl (30-36); MCV 87.5 fl (81-99); MONOCYTES 8.2 % (0-12); NEUTROPHILS 64.5 % (39-80); PLATELET COUNT 186 K/uL (140-440); RBC 5.39 M/ul (4.3-5.7); RDW 15.7 (10.5-15.0)
[2023-01-28 02:30] LABS: BASE EXCESS, BLOOD GAS 7.6 mmol/L (-2-2); PCO2, BLOOD GAS 64.7 mmHg (35-45); PH, BLOOD GAS 7.35 (7.35-7.45); PO2, BLOOD GAS 195 mmHg (80-100); TOTAL CO2, BLOOD GAS 37.9
[2023-01-28 02:31] LABS: O2 SATURATION, BLOOD GAS > 100.0 % (95.0-100.0); OXYGEN RECEIVED, BLOOD GAS NOT STATED
[2023-01-28 02:33] LABS: ALBUMIN 3.3 g/dL (3.4-5.0); ALBUMIN/GLOBULIN RATIO 0.79 (1.1-2.4); ANION GAP 5.6 (7-21); BILIRUBIN, TOTAL 0.2 ng/dL (0.2-1.0); BUN/CREATININE RATIO 22.1 (6.0-28.6); CALCIUM 9.2 mg/dL (8.5-10.1); CREATININE, SERUM 0.95 mg/dL (0.70-1.30); MAGNESIUM 1.8 mg/dL (1.8-2.4); POTASSIUM 4.6 mmol/L (3.5-5.1); PROTEIN, TOTAL 7.5 g/dL (6.4-8.2)
[2023-01-28 02:54] LABS: INFLUENZA B NAA NEGATIVE (NEGATIVE); RESPIRATORY SYNCYTIAL VIR NAA NEGATIVE (NEGATIVE)
[2023-01-28] MEDS ORDERED: LISINOPRIL10 MG PO (08:01)
[2023-01-29 01:01] VITALS: BP 124/66
[2023-01-29 01:22] VITALS: BP 99/46
[2023-01-29 05:25] LABS: BASOPHILS 0.1 % (0-2); HEMATOCRIT 45.4 % (35.0-50.0); HEMOGLOBIN 14.5 g/dL (12.0-18.0); LYMPHOCYTES 7.2 % (24-44); MCH 28.1 (27-36); MONOCYTES 4.3 % (0-12); NEUTROPHILS 88.4 % (39-80); PLATELET COUNT 173 K/uL (140-440); RBC 5.16 M/ul (4.3-5.7); RDW 15.2 (10.5-15.0)
[2023-01-29 05:29] VITALS: BP 117/69
[2023-01-29 05:42] LABS: ALBUMIN/GLOBULIN RATIO 0.71 (1.1-2.4); ANION GAP 9.4 (7-21); BILIRUBIN, TOTAL 0.4 ng/dL (0.2-1.0); BUN/CREATININE RATIO 26.37 (6.0-28.6); CALCIUM 8.9 mg/dL (8.5-10.1); CREATININE, SERUM 0.91 mg/dL (0.70-1.30); MAGNESIUM 2.1 mg/dL (1.8-2.4); PHOSPHORUS, INORGANIC 3.4 mg/dL (2.5-4.9); POTASSIUM 5.4 mmol/L (3.5-5.1); PROTEIN, TOTAL 7.2 g/dL (6.4-8.2)
[2023-01-29 08:46] VITALS: BP 100/62
[2023-01-29 09:12] VITALS: BP 116/50
[2023-01-29 10:42] VITALS: BP 131/91
[2023-01-29] MEDS ORDERED: CARVEDILOL3.125 MG PO (13:09)
[2023-01-29] MEDS ORDERED: METHYLPREDNISOLO4 M1 PO (13:25)
--- NOTE | 2023-01-29 19:39 | EKG ---
[facility] [address] [place], [place] [address] Signed Sinus tachycardia with 1st degree AV block Low voltage QRS Cannot rule out Anteroseptal infarct (cited on or before 25-DEC-2019) Abnormal ECG When compared with ECG of 03-MAY-2022 17:32, Serial changes of Anteroseptal infarct present Confirmed by LENA LOREDO MD ([id number]) on 01/29/2023 7:39:37 PM Electronically Signed By: LENA LOREDO 01/29/23 193 PATIENT NAME: TY GAINES VIDAL Electrocardiogram DATE OF : 55 PHYSICIAN: LENA LOREDO REPORT #: [id number] REPORT IS CONFIDENTIAL AND NOT TO BE RELEASED WITHOUT AUTHORIZATION
== END 2023-01-29 14:00 | disposition home or self-care (01) | DRG 189 ==
LOC: ED 01:54 → CCU 01:56
PROVIDERS: Emergency Medicine; ADMIT Family Medicine; ATTEND Internal Medicine
PROC: 5A09357 Assistance with Respiratory Ventilation, Less than 24 Consecutive Hours, Continuous Positive Airway Pressure (ICD-10-PCS; principal; 2023-01-28)
PROC: 4A033R1 Measurement of Arterial Saturation, Peripheral, Percutaneous Approach (ICD-10-PCS; 2023-01-28)
DX: J96.01 Acute respiratory failure with hypoxia (principal); J44.1 Chronic obstructive pulmonary disease with (acute) exacerbation; Z68.42 Body mass index [BMI] 45.0-49.9, adult; Z20.822 Contact with and (suspected) exposure to COVID-19; I50.9 Heart failure, unspecified; E66.9 Obesity, unspecified; E11.9 Type 2 diabetes mellitus without complications; Z87.891 Personal history of nicotine dependence; Z91.038 Other insect allergy status; Z79.84 Long term (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 oral hypoglycemic drugs; Z79.899 Other long term (current) drug therapy; Z79.82 Long term (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 aspirin
CPT/HCPCS: 36415; 36600; 71045; 80053; 82803; 83735; 83880; 84100; 84484; 85025; 87502; 93005; 93010; 94640; 94644; 94660; 94760; 97161; 97165; 97530; 97535; A9270; C9803; J1200; J1650; J1815; J2405; J2920; J2930; U0002

== ENCOUNTER 2023-02-08 14:42 | Inpatient (IN) | payer MEDICARE ==
[~2023-02-08] VITALS: Ht 185.4 cm; Wt 170.6 kg
--- OUTSIDE RECORDS SUMMARY | ~2023-02-08 | XMS | Continuity of Care Document ---
Demographics + + + | Address | [address] | | | [place] [address] | + + + | Preferred Language | Unknown | + + + | Marital Status | Never | + + + | Methodist Affiliation | Unknown | + + + | Race | White | + + + | Ethnic Group | Not or | + + + Author + + + | Author | [facility] | + + + | Organization | [facility] | + + + | Address | [address] | | | [place] [address] | + + + | Phone | | + + + Care Team Providers + + + + | Care Cigar Head Puncher Name | Role | Phone | + + + + Unavailable | Unavailable | + + + + Allergies No information. Encounters No information. Functional Status No information. Immunizations No information. Medications No information. Problems + + + + | date | description | facility | + + + + | 2023-01-28 09:26 | TYPE 2 DIABETES MELLITUS | [facility] | | | WITHOUT COMPLICATIONS | | + + + + | 2023-01-28 09:26 | OBESITY, UNSPECIFIED | [facility] | + + + + | 2023-01-28 09:26 | HEART FAILURE, UNSPECIFIED | [facility] | | | | | + + + + | 2023-01-28 09:26 | CHRONIC OBSTRUCTIVE | [facility] | | | PULMONARY DISEASE W (ACUTE) | | | | EXACERBATION | | + + + + | 2023-01-28 09:26 | ACUTE RESPIRATORY FAILURE | [facility] | | | WITH HYPOXIA | | + + + + | 2023-01-28 09:26 | BODY MASS INDEX (BMI) | [facility] | | | 45.0-49.9, ADULT | | + + + + | 2023-01-28 09:26 | CUSTODIAL OFFICER (CURRENT) USE OF | [facility] | | | ASPIRIN | | + + + + | 2023-01-28 09:26 | CORRECTION (CURRENT) USE OF | [facility] | | | ORAL HYPOGLYCEMIC DRUGS | | + + + + | 2023-01-28 09:26 | OTHER CORRECTION (CURRENT) | [facility] | | | DRUG THERAPY | | + + + + | 2023-01-28 09:26 | PERSONAL HISTORY OF | [facility] | | | NICOTINE DEPENDENCE | | + + + + | 2023-01-28 09:26 | OTHER INSECT ALLERGY | [facility] | | | STATUS | | + + + + | 2023-02-03 11:45 | OBESITY, UNSPECIFIED | [facility] | + + + + | 2023-02-03 11:45 | NICOTINE DEPENDENCE, | [facility] | | | CIGARETTES, UNCOMPLICATED | | + + + + | 2023-02-03 11:45 | DEPRESSION, UNSPECIFIED | [facility] | + + + + | 2023-02-03 11:45 | ANXIETY DISORDER, | [facility] | | | UNSPECIFIED | | + + + + | 2023-02-03 11:45 | OBSTRUCTIVE SLEEP APNEA | [facility] | | | (ADULT) (PEDIATRIC) | | + + + + | 2023-02-03 11:45 | HYPERTENSIVE HEART DISEASE | [facility] | | | WITH HEART FAILURE | | + + + + | 2023-02-03 11:45 | HEART FAILURE, UNSPECIFIED | [facility] | | | | | + + + + | 2023-02-03 11:45 | CHRONIC OBSTRUCTIVE | [facility] | | | PULMONARY DISEASE W (ACUTE) | | | | EX | | + + + + | 2023-02-03 11:45 | SHORTNESS OF BREATH | [facility] | + + + + | 2023-02-03 11:45 | COVID-19 | [facility] | + + + + | 2023-02-03 11:45 | BODY MASS INDEX (BMI) | [facility] | | | 45.0-49.9, ADULT | | + + + + | 2023-02-03 11:45 | DIETARY COUNSELING AND | [facility] | | | SURVEILLANCE | | + + + + | 2023-02-03 11:45 | CORRECTION (CURRENT) USE OF | [facility] | | | ASPIRIN | | + + + + | 2023-02-03 11:45 | CUSTODIAL OFFICER (CURRENT) USE OF | [facility] | | | ORAL HYPOGLYCEMIC DRUGS | | + + + + | 2023-02-03 11:45 | OTHER CORRECTION (CURRENT) | [facility] | | | DRUG THERAPY | | + + + + | 2023-02-03 11:45 | ACQUIRED ABSENCE OF OTHER | [facility] | | | SPECIFIED PARTS OF DIGES | | + + + + | 2023-02-03 11:45 | BEE ALLERGY STATUS | [facility] | + + + + | 2023-02-03 11:45 | PATIENT'S OTHER NONCOMPL | [facility] | | | WITH MEDS REGIMEN FOR OTH | | + + + + | 2023-02-03 11:45 | OTHER SPECIFIED | [facility] | | | POSTPROCEDURAL STATES | | + + + + | 2023-02-03 11:45 | DEPENDENCE ON SUPPLEMENTAL | [facility] | | | OXYGEN | | + + + + Procedures No information. Results/Labs No information. Social History +--------+ + + | date | description | facility | +--------+ + + Vital Signs No information."
--- OUTSIDE RECORDS SUMMARY | ~2023-02-08 | XMS | Continuity of Care Document ---
Demographics + + + | Address | [address] | | | [place] [address] | + + + | Preferred Language | Unknown | + + + | Marital Status | Never | + + + | Evangelical Affiliation | Unknown | + + + | Race | White | + + + | Ethnic Group | Not or | + + + Author + + + | Author | [place] | + + + | Organization | [place] | + + + | Address | [address] | | | [place] [address] | + + + | Phone | | + + + Care Team Providers + + + + | Care Windows Server Engineer Name | Role | Phone | + [...] + + + | 2023-01-28 09:26 | DAIRY MANUFACTURING TECHNOLOGIST (CURRENT) USE OF | [facility] | | | ASPIRIN | | + + + + | 2023-01-28 09:26 | USP (CURRENT) USE OF | [facility] | | | ORAL HYPOGLYCEMIC DRUGS | | + + + + | 2023-01-28 09:26 | OTHER USP (CURRENT) | [facility] | | | DRUG [...] + + + | 2023-02-03 11:45 | USP (CURRENT) USE OF | [facility] | | | ASPIRIN | | + + + + | 2023-02-03 11:45 | DAIRY MANUFACTURING TECHNOLOGIST (CURRENT) USE OF | [facility] | | | ORAL HYPOGLYCEMIC DRUGS | | + + + + | 2023-02-03 11:45 | OTHER USP (CURRENT) | [facility] | | | DRUG [...]
[~2023-02-08 14:42] MED LIST changes: +AZITHROMYCIN500 MG PO; +CARVEDILOL3.125 MG PO; +CEFDINIR300 MG PO; +LISINOPRIL10 MG PO; +METHYLPREDNISOLO4 M1 PO
--- OUTSIDE RECORDS SUMMARY | 2023-02-08 14:45 | XMS ---
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 Physician Toxics Program Officer Current PHONE: Unknown GERMAN HERNANDEZ Nurse Practitioner Current PHONE: Unknown IVETTE MARTI Nurse Practitioner Reji MANCILLA PHONE: [phone] KEYLA [facility] Current PHONE: [phone] Janki has no Care Guidelines for this patient. Care History Medical/Surgical 01/04/2020 [facility] - PATIENT RECVD NEBULIZER MEDICATION TODAY 01/04/2020. - NEBULIZER MACHINE WILL BE RECEIVED ON Thursday01/06/2020 AND PATIENT WILL BE SHOWN HOW TO USE THE NEBULIZER MACHINE. - PATIENT RECEIVED HIS HEAVY DUTY WALKER ON Thursday01/03/20. E.D. VISIT COUNT (12 MO.) 4 [facility]. TOTAL 4 NOTE: Visits indicate total known visits. 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 TYPE: Medical Surgical COMPLAINT: - COPD/COVID DIAGNOSES: - Acquired absence of other specified parts of digestive tract - Acquired absence of other specified parts of digestive tract - Anxiety disorder, unspecified - Anxiety disorder, unspecified - Bee allergy status - Bee allergy status - Body mass index [BMI] 45.0-49.9, adult - Body mass index [BMI] 45.0-49.9, adult - Chronic obstructive pulmonary disease with (acute) exacerbation - Chronic obstructive pulmonary disease with (acute) exacerbation - COVID-19 - COVID-19 - Dependence on supplemental oxygen - Dependence on supplemental oxygen - Depression, unspecified - Depression, unspecified - Dietary counseling and surveillance - Dietary counseling and surveillance - Heart failure, unspecified - Heart failure, unspecified - Hypertensive heart disease with heart failure - Hypertensive heart disease with heart failure - 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 - 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 - 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 (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 oral hypoglycemic drugs - assisted (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 oral hypoglycemic drugs - Nicotine dependence, cigarettes, uncomplicated - Nicotine dependence, cigarettes, uncomplicated - Obesity, unspecified - Obesity, unspecified - Obstructive sleep apnea (adult) (pediatric) - Obstructive sleep apnea (adult) (pediatric) - Other chcf (current) drug therapy - Other chcf (current) drug therapy - Other specified postprocedural states - Other specified postprocedural states - Shortness of breath - PATIENT'S OTHER NONCOMPL WITH MEDS REGIMEN FOR OTH - PATIENT'S OTHER NONCOMPL WITH MEDS REGIMEN FOR OTH 01/28/2023 09:26 [facility] TYPE: Critical Care COMPLAINT: - COPD EXACERBATION DIAGNOSES: - Acute respiratory failure with hypoxia - Body mass index [BMI] 45.0-49.9, adult - Chronic obstructive pulmonary disease with (acute) exacerbation - Contact with and (suspected) exposure to COVID-19 - Heart failure, unspecified - 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
[2023-02-08 15:18] LABS: BASOPHILS 0.5 % (0-2); EOSINOPHILS 1.4 % (0-6); HEMOGLOBIN 15.6 g/dL (12.0-18.0); LYMPHOCYTES 15.5 % (24-44); MCHC 31.8 g/dl (30-36); MONOCYTES 4.1 % (0-12); NEUTROPHILS 78.5 % (39-80); PLATELET COUNT 173 K/uL (140-440); RBC 5.56 M/ul (4.3-5.7); RDW 15.6 (10.5-15.0)
[2023-02-08 15:48] LABS: ALBUMIN 2.9 g/dL (3.4-5.0); ALBUMIN/GLOBULIN RATIO 0.73 (1.1-2.4); ANION GAP 9.5 (7-21); CALCIUM 9.1 mg/dL (8.5-10.1); CREATININE, SERUM 0.85 mg/dL (0.70-1.30); MAGNESIUM 1.8 mg/dL (1.8-2.4); POTASSIUM 4.5 mmol/L (3.5-5.1); PROTEIN, TOTAL 6.9 g/dL (6.4-8.2)
[2023-02-08 15:49] LABS: INFLUENZA B NAA NEGATIVE (NEGATIVE); RESPIRATORY SYNCYTIAL VIR NAA NEGATIVE (NEGATIVE)
[2023-02-08 20:00] VITALS: BP 134/84
[2023-02-08 21:00] VITALS: BP 121/70
--- NOTE | 2023-02-08 21:45 | EKG ---
[facility] [address] [place] [address] Signed Normal sinus rhythm Septal infarct (cited on or before 25-DEC-2019) Abnormal ECG When compared with ECG of 01-FEB-2023 05:35, premature ventricular complexes are no longer present Sinus rhythm is no longer with junctional escape complexes Questionable change in QRS axis Confirmed by Paul Aragon MD () on 02/08/2023 9:45:50 PM Electronically Signed By: PAUL ARAGON MD 02/08/23 2145 PATIENT NAME: TY GAINES Electrocardiogram DATE OF : 55 PHYSICIAN: PAUL ARAGON MD REPORT #: [id number] REPORT IS CONFIDENTIAL AND NOT TO BE RELEASED WITHOUT AUTHORIZATION
[2023-02-08 22:00] VITALS: BP 125/62
[2023-02-08 23:00] VITALS: BP 126/66
[2023-02-09] VITALS (12 sets, daily range): BP systolic 113–153; BP diastolic 55–83
[2023-02-09 05:34] LABS: BASOPHILS 0.8 % (0-2); EOSINOPHILS 0.1 % (0-6); HEMATOCRIT 47.3 % (35.0-50.0); HEMOGLOBIN 15.1 g/dL (12.0-18.0); LYMPHOCYTES 8.3 % (24-44); MCH 28.1 (27-36); MCHC 31.9 g/dl (30-36); MONOCYTES 3.7 % (0-12); NEUTROPHILS 87.1 % (39-80); PLATELET COUNT 168 K/uL (140-440); RBC 5.38 M/ul (4.3-5.7)
[2023-02-09 05:54] LABS: ALBUMIN 2.8 g/dL (3.4-5.0); ALBUMIN/GLOBULIN RATIO 0.67 (1.1-2.4); ANION GAP 6.9 (7-21); BILIRUBIN, TOTAL 0.6 ng/dL (0.2-1.0); BUN/CREATININE RATIO 22.5 (6.0-28.6); CALCIUM 9.1 mg/dL (8.5-10.1); CREATININE, SERUM 0.8 mg/dL (0.70-1.30); MAGNESIUM 2.1 mg/dL (1.8-2.4); POTASSIUM 4.9 mmol/L (3.5-5.1)
[2023-02-10 04:00] VITALS: BP 93/69
[2023-02-10 05:40] LABS: BASOPHILS 1.2 % (0-2); EOSINOPHILS 0.4 % (0-6); HEMATOCRIT 45.4 % (35.0-50.0); HEMOGLOBIN 14.5 g/dL (12.0-18.0); LYMPHOCYTES 13.6 % (24-44); MCH 28.2 (27-36); MCV 88.3 fl (81-99); MONOCYTES 5.5 % (0-12); NEUTROPHILS 79.3 % (39-80); PLATELET COUNT 163 K/uL (140-440); RBC 5.14 M/ul (4.3-5.7); RDW 15.8 (10.5-15.0)
[2023-02-10 05:55] LABS: ALBUMIN 2.6 g/dL (3.4-5.0); ALBUMIN/GLOBULIN RATIO 0.65 (1.1-2.4); ANION GAP 7.4 (7-21); BILIRUBIN, TOTAL 0.3 ng/dL (0.2-1.0); BUN/CREATININE RATIO 33.33 (6.0-28.6); CALCIUM 9.3 mg/dL (8.5-10.1); CREATININE, SERUM 0.84 mg/dL (0.70-1.30); POTASSIUM 4.4 mmol/L (3.5-5.1); PROTEIN, TOTAL 6.6 g/dL (6.4-8.2)
[2023-02-10 08:09] VITALS: BP 137/83
[2023-02-10 11:35] VITALS: BP 154/95
[2023-02-10 17:17] VITALS: BP 144/74
[2023-02-10 20:46] VITALS: BP 158/81
[2023-02-11 01:28] VITALS: BP 113/62; BP 116/64
[2023-02-11 06:00] VITALS: BP 119/63
[2023-02-11 06:25] LABS: BASOPHILS 0.7 % (0-2); EOSINOPHILS 0.4 % (0-6); HEMATOCRIT 44.7 % (35.0-50.0); HEMOGLOBIN 14.4 g/dL (12.0-18.0); LYMPHOCYTES 14.3 % (24-44); MCH 28.3 (27-36); MCHC 32.2 g/dl (30-36); MONOCYTES 7.6 % (0-12); PLATELET COUNT 153 K/uL (140-440); RBC 5.08 M/ul (4.3-5.7); RDW 15.8 (10.5-15.0)
[2023-02-11 06:40] LABS: ALBUMIN 2.6 g/dL (3.4-5.0); ALBUMIN/GLOBULIN RATIO 0.68 (1.1-2.4); ANION GAP 6.8 (7-21); BILIRUBIN, TOTAL 0.3 ng/dL (0.2-1.0); BUN/CREATININE RATIO 27.77 (6.0-28.6); CALCIUM 8.7 mg/dL (8.5-10.1); CREATININE, SERUM 0.9 mg/dL (0.70-1.30); POTASSIUM 4.8 mmol/L (3.5-5.1); PROTEIN, TOTAL 6.4 g/dL (6.4-8.2)
[2023-02-11 07:58] VITALS: BP 135/71
[2023-02-11 13:03] VITALS: BP 116/92
[2023-02-11 18:36] VITALS: BP 125/86
[2023-02-11 22:42] VITALS: BP 120/86
[2023-02-12 05:45] VITALS: BP 131/75
[2023-02-12 07:50] VITALS: BP 118/78
[2023-02-12 08:52] LABS: BASOPHILS 1.2 % (0-2); EOSINOPHILS 0.5 % (0-6); HEMATOCRIT 47.2 % (35.0-50.0); HEMOGLOBIN 15.2 g/dL (12.0-18.0); LYMPHOCYTES 19.1 % (24-44); MCH 28.1 (27-36); MCHC 32.3 g/dl (30-36); MCV 87.1 fl (81-99); MONOCYTES 6.8 % (0-12); NEUTROPHILS 72.4 % (39-80); PLATELET COUNT 142 K/uL (140-440); RBC 5.41 M/ul (4.3-5.7); RDW 16.2 (10.5-15.0)
[2023-02-12 09:08] LABS: ALBUMIN 2.9 g/dL (3.4-5.0); ALBUMIN/GLOBULIN RATIO 0.74 (1.1-2.4); ANION GAP 9.1 (7-21); BILIRUBIN, TOTAL 0.5 ng/dL (0.2-1.0); BUN/CREATININE RATIO 28.4 (6.0-28.6); CALCIUM 9.1 mg/dL (8.5-10.1); CREATININE, SERUM 0.88 mg/dL (0.70-1.30); POTASSIUM 5.1 mmol/L (3.5-5.1); PROTEIN, TOTAL 6.8 g/dL (6.4-8.2)
[2023-02-12 14:42] VITALS: BP 160/89
[2023-02-12 16:05] VITALS: BP 152/80
[2023-02-12 18:10] VITALS: BP 138/68
[2023-02-12 21:05] VITALS: BP 151/65
[2023-02-13 05:09] VITALS: BP 136/70
[2023-02-13 09:13] VITALS: BP 123/59
== END 2023-02-13 11:00 | disposition home or self-care (01) | DRG 177 ==
LOC: ED 14:42 → MS 17:19 → CCU 17:19 → MS 02-10 16:50
PROVIDERS: Emergency Medicine; ADMIT Family Medicine; ATTEND Family Medicine
PROC: 5A09357 Assistance with Respiratory Ventilation, Less than 24 Consecutive Hours, Continuous Positive Airway Pressure (ICD-10-PCS; principal; 2023-02-08)
PROC: 3E0333Z Introduction of Anti-inflammatory into Peripheral Vein, Percutaneous Approach (ICD-10-PCS; 2023-02-08)
PROC: 8E0ZXY6 Isolation (ICD-10-PCS; 2023-02-08)
DX: U07.1 COVID-19 (principal); J96.01 Acute respiratory failure with hypoxia; E11.9 Type 2 diabetes mellitus without complications; F17.210 Nicotine dependence, cigarettes, uncomplicated; J43.9 Emphysema, unspecified; I50.9 Heart failure, unspecified; Z90.49 Acquired absence of other specified parts of digestive tract; Z98.890 Other specified postprocedural states; Z91.038 Other insect allergy status; Z79.899 Other long term (current) drug therapy; Z79.2 Long term (current) use of antibiotics; Z79.84 Long term (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 oral hypoglycemic drugs; Z79.82 Long term (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 aspirin; Z79.51 Long term (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 inhaled steroids; Z60.2 Problems related to living alone
CPT/HCPCS: 36415; 71045; 80053; 83735; 84100; 84484; 85025; 87502; 93005; 93010; 94640; 94660; 94760; 94762; 97110; 97530; 99285-25; 99406; A9270; A9270-GY; C9803; J1100; J1650; J1815; J8540; U0002

== ENCOUNTER 2023-02-13 15:04 | Inpatient (IN) | payer MEDICARE ==
[~2023-02-13] VITALS: Ht 185.4 cm; Wt 167.2 kg
--- OUTSIDE RECORDS SUMMARY | 2023-02-13 15:11 | XMS ---
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 - [facility] - 2 Visits in 30 Days CARE PROVIDERS KATJA [facility] 12/29/2019-Current PHONE: [phone] CARA TAPIA Flotation Tank Operatorchase Null PHONE: [phone] KARLIE QUINTANILLA Internal Medicine Current PHONE: [phone] VALENTIN KIMBALL [facility] Current PHONE: Unknown PEGGY MICHELLE Nurse Practitioner: Family Current PHONE: Unknown ANNA GARCÍA Internal Medicine Current PHONE: [phone] RONALD DUNNE I. Physician Sheet Rock Installation Helper Current PHONE: Unknown GERMAN HERNANDEZ Nurse Practitioner Current PHONE: Unknown IVETTE MARTI Nurse Practitioner Reji MANCILLA PHONE: [phone] KEYLA [facility] Current PHONE: [phone] Janki has no Care Guidelines for this patient. Care History Medical/Surgical 01/04/2020 [facility] - PATIENT RECVD NEBULIZER MEDICATION TODAY 01/04/2020. - NEBULIZER MACHINE WILL BE RECEIVED ON Thursday01/06/2020 AND PATIENT WILL BE SHOWN HOW TO USE THE NEBULIZER MACHINE. - PATIENT RECEIVED HIS HEAVY DUTY WALKER ON Thursday01/03/20. E.D. VISIT COUNT (12 MO.) 5 [facility]. TOTAL 5 NOTE: Visits indicate total known visits. 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 - intermediate (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 oral hypoglycemic drugs - Other halfway (current) drug therapy - Personal history of nicotine dependence - Shortness of breath INPATIENT VISIT TRACKING (12 MO.) 02/08/2023 17:19 [facility] TYPE: Medical Surgical COMPLAINT: - ACUTE HYPOXIC RESPIRATORY FAILURE, COVID 02/03/2023 11:45 [facility] TYPE: Medical Surgical COMPLAINT: - COPD/COVID [...] Hypertensive heart disease with heart failure - 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 - intermediate (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 aspirin - 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 (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 oral hypoglycemic drugs - intermediate (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 oral hypoglycemic drugs - Nicotine dependence, cigarettes, uncomplicated - Nicotine dependence, cigarettes, uncomplicated - Obesity, unspecified - Obesity, unspecified - Obstructive sleep apnea (adult) (pediatric) - Obstructive sleep apnea (adult) (pediatric) - Other termite control servicer (current) drug therapy - Other termite control servicer (current) drug therapy - Other specified postprocedural [...] to COVID-19 - Heart failure, unspecified - 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
[2023-02-13 15:15] LABS: BASOPHILS 1.4 % (0-2); EOSINOPHILS 0.7 % (0-6); HEMATOCRIT 47.9 % (35.0-50.0); HEMOGLOBIN 15.4 g/dL (12.0-18.0); LYMPHOCYTES 22.6 % (24-44); MCH 28.6 (27-36); MCHC 32.2 g/dl (30-36); MCV 88.8 fl (81-99); MONOCYTES 6.5 % (0-12); NEUTROPHILS 68.8 % (39-80); PH, VENOUS 7.303 (7.31-7.41); PLATELET COUNT 155 K/uL (140-440); RBC 5.39 M/ul (4.3-5.7); RDW 16.1 (10.5-15.0)
[2023-02-13 15:42] LABS: ALBUMIN/GLOBULIN RATIO 0.79 (1.1-2.4); ANION GAP 9.3 (7-21); BILIRUBIN, TOTAL 0.5 ng/dL (0.2-1.0); BUN/CREATININE RATIO 28.08 (6.0-28.6); CALCIUM 8.9 mg/dL (8.5-10.1); CREATININE, SERUM 0.89 mg/dL (0.70-1.30); POTASSIUM 4.3 mmol/L (3.5-5.1); PROTEIN, TOTAL 6.8 g/dL (6.4-8.2)
--- NOTE | 2023-02-13 17:10 | NUR ---
MED REC COMPLETE
[2023-02-13 17:37] VITALS: BP 159/119
--- NOTE | 2023-02-13 18:05 | NUR ---
PT ARRIVES TO FLOOR VIA STRETCHER BY THIS RN - REPORT RECEIVED FROM ED WITH PT ON ROOM AIR WITH SPO2 GREATER THAN 90%. TRANSPORTED ON 2 L AND TITRATED TO 4L FOR TRANSFER TO BED USING SLIDER SHEET AND ADDITIONAL STAFF. PT AAO. STATES HE WENT HOME AFTER DC FROM ROOM 117 TODAY AND SMOKED A CIGARETTE, LEADING TO INCREASE SOB AND THEN CALL TO EMS.
--- NOTE | 2023-02-13 18:28 | NUR ---
PT RESTING IN BED ON LEFT SIDE. SPO2 >90% ON ROOM AIR. ATE 100% DINNER. COVERED WITH 3 UNITS INSULIN PER SS. PT DENIES FURTHER NEEDS AT THIS TIME. CALL LIGHT IN REACH.
--- NOTE | 2023-02-13 19:15 | NUR ---
Assisted DIRECTOR OF INTEGRATED MARKETING with cleaning up urine spilled. Call light left in reach. No other needs expressed by Pt.
--- NOTE | 2023-02-13 20:11 | NUR ---
REPORT PROVIDED BY DAY SHIFT RN, PATIENT SITTING AT EDGE OF BED, NO DISTRESS NOTED, CALL LIGHT IN REACH.
--- NOTE | 2023-02-13 21:05 | NUR ---
Emptied Pt's urinal. Checked Pt's vitals. Call light left in reach. No other needs expressed by Pt.
[2023-02-13 21:26] VITALS: BP 153/84
--- NOTE | 2023-02-13 23:10 | NUR ---
PATIENT GIVEN SCHEDULED DOUNEB, VSS, BLOOD SUGAR 277 AND GIVEN 7U PER SS. CONTACTED MD REGARDING PATIENTS ROUTINE 20U GLARGINE, NICOTINE PATCH AND ATIVEN, SEE ORDERS. PATIENTS LEGS BILAT SWOLLEN 3+ ENCOURAGED PATIENT TO LAY IN BED WITH LEGS ELEVATED MORE AND HE NOW IN BED WITH PILLOWS IN PLACE TO SUPPORT LEGS BEING ELEVATED. LUNGS REMAIN DIMINISHED AND WHEEZES. NO COUGH NOTED. PATIENT DENIES SOB OR CP. ON 2L/NC TO KEEP SATS >95%. WHEN ASKED WHAT HAPPENED TODAY. PATIENT STATED " I WENT HOME AND SMOKED.....I CAN'T DO THAT ANYMORE....I GOTTA QUIT". DISCUSSED OPTIONS AND PROVIDED ENCOURAGEMENT. PATIENT RESTING NOW AND WATCHING TV. CALL LIGHT IN REACH.,
--- NOTE | 2023-02-14 00:18 | NUR ---
Patient resting, appears comfortable, no resp distress, call light in reach,
[2023-02-14 02:13] VITALS: BP 11/58; BP 111/58
--- NOTE | 2023-02-14 02:17 | NUR ---
Patient awake, no complaints, no resp distress, recieving dounebs routinely and tolerating well. call light within reach.
--- NOTE | 2023-02-14 04:08 | NUR ---
IN TO PROVIDE PT COFFEE, URINAL EMPIED
--- NOTE | 2023-02-14 04:09 | NUR ---
patient is awake, sitting up at edge of bed using computer, no noted resp distress, continues wear oxygen at 2L/NC.. VSS, call light within reach.
[2023-02-14 05:21] LABS: BASOPHILS 0.4 % (0-2); HEMATOCRIT 44.4 % (35.0-50.0); HEMOGLOBIN 14.3 g/dL (12.0-18.0); MCH 28.3 (27-36); MCHC 32.1 g/dl (30-36); MONOCYTES 1.8 % (0-12); NEUTROPHILS 92.8 % (39-80); PLATELET COUNT 153 K/uL (140-440); RBC 5.04 M/ul (4.3-5.7); RDW 15.9 (10.5-15.0)
[2023-02-14 05:33] LABS: BUN/CREATININE RATIO 27.47 (6.0-28.6); CALCIUM 9.1 mg/dL (8.5-10.1); CREATININE, SERUM 0.91 mg/dL (0.70-1.30)
[2023-02-14 06:28] VITALS: BP 149/72
--- NOTE | 2023-02-14 06:30 | NUR ---
Patient is awake drinking coffee, sitting at edge of bed using computer, slept well first part of shift. VSS, no resp distress, lungs diminished with wheeze. patient had occasional cough but not bringing anything up, still attempting to get ordered sputum sample. Patients legs are still swollen but patient wont elevate them and continues to danlge them at bedside, call light within reach, patient without complaints.
[2023-02-14 09:20] VITALS: BP 173/79
[2023-02-14 14:22] VITALS: BP 153/77
--- NOTE | 2023-02-14 14:50 | NUR ---
PT CALLED DOWN TO THE KITCHEN TO CHANGE HIS DIET TO REGULAR FROM 60G CARB. KITCHEN CALLED THE RN STATION TO CONFIRM THE CHANGE. PT THEN CALLED FOR HIS RN TO ADVISE HE IS "OUTTA HERE". WHEN ASKED TO SLOW DOWN AND EXPLAIN WHAT IS GOING ON, PT STATED "DR LOREDO HAD ME ON A REGULAR DIET SINCE THE MOMENT I CAME IN AND THEY SAY IM ON A 60G CARB DIET. YOU ARE NOT GOING TO STARVE ME OUT, NO WAY" I EXPLAINED THAT THE ORDER THAT HAS BEEN IN SINCE HIS ADMIT WAS A 60G CARB AND THAT WAS PUT IN BY DR LOREDO. HE REQUESTED TO TALK TO DR LOREDO. I CALLED DR LOREDO AND HE WILL COME TALK TO GAINES.
--- NOTE | 2023-02-14 15:20 | NUR ---
DR LOREDO GAVE VERBAL ORDERS FOR THE FOLLOWIN) DOUBLE PORTIONS OF EACH MEAL, BUT STAY ON 60G CC DIET. 2) OK TO HAVE 2 SANDWICHES AT HS FOR SNACK. 3) MAY ORDER EXTRA NON-CARB FOOD. CALLED KITCHEN TO EXPLAIN. UPDATED ORDER IN YODIL.
--- NOTE | 2023-02-14 15:28 | NUR ---
PT HAS AGREED TO STAY AT THIS TIME.
[2023-02-14 18:06] VITALS: BP 162/79
--- NOTE | 2023-02-14 19:52 | NUR ---
RECEIVED REPORT FROM DAY SHIFT RN. PATIENT IS SITTING ON THE EDGE OF THE BED. PATIENT REPORTS FRUSTRATION WITH DIET ORDER. THIS RN AND DAY SHIFT RN ATTEMPTED TO EDUCATE PATIENT ON DIET AND CARD COUNT. PATIENT STATED "ITS NOT MY FAULT THE KITCHEN GAVE ME TO MANY CARBS". PATIENT THEN THREW HANDS UP. THIS RN AND DAY SHIFT RN THEN LEFT THE ROOM AND EDUCATED PATIENT TO CALL WHEN HE NEEDS ANY THING. CALL LIGHT IN REACH.
[2023-02-14 21:07] VITALS: BP 150/95
--- NOTE | 2023-02-14 22:05 | NUR ---
PATIENT DONE EATING SNACK. PATIENT GIVEN SCHEDULED PM MEDS. PATIENT REPORTS FEELING ANXIOUS AND REQUESTS ANXIETY MEDICATION, PRN MEDICATION GIVEN PER ORDER. FRESH ICE WATER PROVIDED. PATIENT DENIES ANY FURTHER NEEDS. CALL LIGHT AND BELONGINGS ARE WITHIN REACH.K
--- NOTE | 2023-02-14 22:24 | EKG ---
[facility] [address] [place] [address] Signed Sinus tachycardia Septal infarct (cited on or before 25-DEC-2019) Abnormal ECG When compared with ECG of 08-FEB-2023 14:56, No significant change was found Confirmed by LENA LOREDO MD ([id number]) on 02/14/2023 10:24:11 PM Electronically Signed By: LENA LOREDO 02/14/23 2224 PATIENT NAME: GAINES,TYALFREDITO DRAKE Electrocardiogram DATE OF : 55 PHYSICIAN: LENA LOREDO REPORT #: [id number] REPORT IS CONFIDENTIAL AND NOT TO BE RELEASED WITHOUT AUTHORIZATION
--- NOTE | 2023-02-15 00:21 | NUR ---
PATIENT CALLED AND REQUESTED NEB TX. PATIENT IS SITTING ON EDGE OF BED. PATIENT IS ON 3L VIA NC PER PATIENT REQUEST. RT IN ROOM TO ADMIN NEB. PATIENTS URINAL EMPTIED.
--- NOTE | 2023-02-15 02:03 | NUR ---
PATIENT IS RESTING IN BED WITH EYES CLOSED, RR 18. CALL LIGHT IN REACH. PATIETN IS ON 3L VIA NC.
--- NOTE | 2023-02-15 03:10 | NUR ---
PATIENT SITTING UP ON EDGE OF BED. PATIENT REQUESTING NEB. RT IN ROOM TO ADMIN NEB
--- NOTE | 2023-02-15 04:18 | NUR ---
PATIENT IS RESTING IN BED WITH EYES CLOSED, RR 16. CALL LIGHT IN REACH.
[2023-02-15 05:25] LABS: BASOPHILS 0.4 % (0-2); HEMATOCRIT 43.3 % (35.0-50.0); HEMOGLOBIN 13.9 g/dL (12.0-18.0); LYMPHOCYTES 5.9 % (24-44); MCH 28.4 (27-36); MCHC 32.1 g/dl (30-36); MCV 88.3 fl (81-99); NEUTROPHILS 89.7 % (39-80); PLATELET COUNT 137 K/uL (140-440); RBC 4.91 M/ul (4.3-5.7)
[2023-02-15 05:34] LABS: ANION GAP 8.2 (7-21); BUN/CREATININE RATIO 33.33 (6.0-28.6); CALCIUM 8.8 mg/dL (8.5-10.1); CREATININE, SERUM 0.87 mg/dL (0.70-1.30); POTASSIUM 5.2 mmol/L (3.5-5.1)
[2023-02-15 05:48] VITALS: BP 147/79
--- NOTE | 2023-02-15 06:01 | NUR ---
PATIENTS VITALS TAKEN AND RECORDED. INTAKE AND OUTPUT RECORDED. PATIENT IS ON 3L VIA NC AND DENIES ANY SOB. PATIENTS AM MEDS GIVEN PER ORDER. PATIENT PROVIDED FRESH ICE WATER AND COFFEE. PATIENT DENIES ANY FURTHER NEEDS. CALL LIGHT AND BELONGINGS ARE WITHIN REACH.
--- NOTE | 2023-02-15 07:15 | NUR ---
report from mikhail odom, pt resting in room call light in reach. fresh coffee made for pt.
--- NOTE | 2023-02-15 09:10 | NUR ---
RN INTRODUCED SELF TO PT HE IMMEDIATLY ASKED IF I WAS HIS NURSE YESTERDAY, NO I WAS NOT HERE - HE REPLIED GOOD - THAT I NEEDED TO TALK TO AND THAT THE PT IS ALLOWED DOUBLE PORTIONS OF FOOD AND ANY AND ALL HE WANTS, 2 SANDWICHES EVERY NIGHT AFTER DINNER AND DOUBLE PORTIONS ON EACH TRAY - ALSO SERVED HOT - EVEN IF THAT MEANS HIS MEDS OR CARE IS DELAYED HE WANT TO EAT FIRST! I LET PT KNOW I WAS AWARE OF HIS REQUESTS AND THAT IT WAS HIS CHOICE NOT TO FOLLOW THE RECCOMENDED 60 GM CARB DIET, OR WEIGHT REDUCTION PLAN THAT WAS ADVISED TO HIM. I LET HIM KNOW THAT I WOULD CHECK HIS BS AND GIVE INSULIN AT MEAL TIME - BUT WOULD TRY TO CLUSTER AND LIMIT THE CARE BEFORE OR AFTER HIS MEAL TO HELP IT BE SERVED HOT - BUT THAT HIS CARE CAME FIRST UNLESS HE IS REFUSING IT. HE AGREED. DURING THIS ASSESSMENT NOW I ENTERED THE ROOM AND FOUND HIM SITTING ON THE EDGE OF BED IN NO DISTRESS WORKING ON HIS COMPUTER ON ROOM AIR. WHEN ASKED HIM IF HE SHOULD HAVE HIS CHRONIC OXYGEN ON HE REPLIED HE DIDN'T NEED TO. REPLACED NICOTINE PATCH AND PROVIDED PRN LOZENGE FOR NICOTINE CRAVING. PT SHORT WITH WORDS AND VERY DEMANDING. THIS RN QUIET AND LISTENED WHILE HANGING IV ABX AND FINISHING ASSESSMETN. PT VERY CRITICAL OF ALL STAFF AND SERVICES, EXPECTING TO BE WAITED ON AND SERVED. THIS RN TIDY ROOM, MADE SURE COFFEE, AND BREAKFAST WERE ADEQUATE AND PT DENIES NEEDS OR PAIN AT THIS TIME. CALL LIGHT IN REACH AND ASKED HIM TO CALL IF IV ABX ALARMS. PT AGREEABLE.
[2023-02-15 09:20] VITALS: BP 153/73
--- NOTE | 2023-02-15 11:55 | NUR ---
refreshed pt ice, opened shade for sun in room, pt denies needs, insulin given call light in reach - waiting for lunch - room air no sob, no anxiety, no distress.
--- NOTE | 2023-02-15 13:40 | NUR ---
pt resting in bed watching computer with feet elevated in bed, very concerned that he ordered 2 sandwiches for night time and where were they. not complaints of pain or sob. room air, no resp distress, call light in reach.
--- NOTE | 2023-02-15 14:41 | NUR ---
rn in to assist pt after he amb to br on own with out calling for assist - did not wear his oxygen, he had sob with exertion on room air - denied wanting to use it while up in bathroom. called because he wanted rn to wipe/clean rosa m area after bm. (formed stool) - cleaned assisted back to bed and asked pt o wear the oxygen nc. pt getting very agitated when staff moved his things on table out of his order. manager file in for vitals - pt settled after a few min. and was in no distress when rn exited.
[2023-02-15 15:29] VITALS: BP 175/85
[2023-02-15 17:17] VITALS: BP 150/88
--- NOTE | 2023-02-15 17:18 | NUR ---
pt did not want care given while dinner was served, ok to take vitals now and give insulin per pt. denies needs, no sob, room air. call light in reach - asking where his dinner is? educated that it is on the way.
--- NOTE | 2023-02-15 19:15 | NUR ---
REPORT RECEIVED FROM OFFGOING RNYAMILA.
--- NOTE | 2023-02-15 20:30 | NUR ---
PATIENT CALLED. ICE WATER PROVIDED. EMPTIED GRADUATED CYLINDER WITH 575ML YELLOW URINE. DINNER TRAY PUT AWAY. NO FURTHER NEEDS AT THIS TIME.
[2023-02-15 20:57] VITALS: BP 153/71
--- NOTE | 2023-02-15 22:04 | NUR ---
PT ASSESSMENT COMPLETE. PT RESTING IN BED. STATES THAT PAIN, NAUESEA, AND SOB ARE WELL CONTROLLED. O2 IN PLACE AT 3 LPM VIA NC. LUNG SOUNDS WITH WHEEZE THROUHGOUT. PT DENIES COUGH. BLE WITH 3+ EDEMA PRESENT. IV FLUSHED WITH 10 ML NS. WNL. PATENT. PT PROVIDED WITH SANDWICH X2 AND MILK. DENIES FURTHER NEEDS AT THIS TIME. CALL LIGHT IN REACH.
--- NOTE | 2023-02-15 22:20 | NUR ---
PT UTILIZES CALL LIGHT, REQUESTS ASSISTANCE WITH HIS BLANKETS. DENIES FURTHER NEEDS. CALL LIGHT IN REACH.
--- NOTE | 2023-02-16 02:10 | NUR ---
PT ROUNDING. PT RESTING IN BED WITH EYES CLOSED. RESPIRATIONS EVEN AND UNLABORED. PT DOES NOT WAKE WHILE CHEMICAL ANALYST AT DOORWAY. CALL LIGHT IN REACH.
--- NOTE | 2023-02-16 04:15 | NUR ---
PT SITTING UP AT EDGE OF BED. REQUESTS COFFEE, PROVIDED. PT ASKS THAT TOWELS AND TOILETRIES BE SET OUT FOR WHEN HE IS READY TO TAKE A SHOWER. DENIES FURTHER NEEDS AT THIS TIME. CALL LIGHT IN REACH.
[2023-02-16 04:57] VITALS: BP 161/71
[2023-02-16 05:42] LABS: BASOPHILS 0.3 % (0-2); EOSINOPHILS 0.4 % (0-6); HEMATOCRIT 45.3 % (35.0-50.0); HEMOGLOBIN 14.4 g/dL (12.0-18.0); LYMPHOCYTES 7.5 % (24-44); MCH 28.3 (27-36); MCHC 31.8 g/dl (30-36); MCV 88.8 fl (81-99); MONOCYTES 3.6 % (0-12); NEUTROPHILS 88.2 % (39-80); PLATELET COUNT 155 K/uL (140-440); RBC 5.11 M/ul (4.3-5.7); RDW 16.1 (10.5-15.0)
[2023-02-16 06:06] LABS: ANION GAP 9.1 (7-21); BUN/CREATININE RATIO 40.47 (6.0-28.6); CALCIUM 9.3 mg/dL (8.5-10.1); CREATININE, SERUM 0.84 mg/dL (0.70-1.30); POTASSIUM 5.1 mmol/L (3.5-5.1)
--- NOTE | 2023-02-16 06:12 | NUR ---
PT ASSESSMENT COMPLETE. PT SITTING UP AT EDGE OF BED. REQUESTS NICOTINE LOZENGE. PROVIDED. PT DENIES NAUSEA, PAIN, OR SOB. LUNG SOUNDS DIM IN BILATERAL BASES. NO COUGH NOTED DURING ASSESSMENT. CURRENTLY ON RA. BLE'S WITH 3+ EDEMA PRESENT. PT REPORTS THAT HE WAS ABLE TO SHOWER INDEPENDENTLY. TOLERATED WELL. IV FLUSHED WITH 10 ML NS. WNL. PATENT. SL. PT DENIES FURTHER NEEDS AT THIS TIME. CALL LIGHT IN REACH.
--- NOTE | 2023-02-16 07:25 | NUR ---
RECIEVED REPORT FROM NURSE. PT IS CURRENTLY RESTING. NO OTHER CARES ARE NEEDED AT THIS TIME. CALL LIGHT WITHIN REACH
--- NOTE | 2023-02-16 08:24 | NUR ---
PT IS CURRENTLY SITTING AT BEDSIDE ON HIS LAPTOP AND WATCHING TV. HE STATES THAT HE IS NO PAIN. 95% ON ROOM AIR. NO ISSUES AT THIS TIME. HE IS CURRENTLY GETTING A DUONEB TREATMENT FROM RESPIRATORY. NO OTHER CARES NEEDED AT THIS TIME OR REQUESTED. CALL LIGHT WITHIN REACH.
--- NOTE | 2023-02-16 09:28 | NUR ---
CHART UPDATE FAXED TO JADA AT [facility] [place].
--- NOTE | 2023-02-16 10:07 | NUR ---
LEFT MESSAGE FOR JADA AT LOCATED WITHIN [facility] IN THE [facility].
[2023-02-16 10:31] VITALS: BP 149/78
--- NOTE | 2023-02-16 10:54 | NUR ---
checked on pt and asked if he needed anything pt stated no. pt is currently on his computer sitting at edge of bed. call light withi reach
--- NOTE | 2023-02-16 11:26 | NUR ---
SPOKE TO PATIENT ABOUT THE DC PLAN. PATIENT WOULD LIKE TO GO TO A SNF IN THE [facility]. REFERRAL SENT TO [facility]. PATIENT UPDATED.
--- NOTE | 2023-02-16 11:30 | NUR ---
Pt refused to wear bipap. when offered pt states he doesn't want it.
--- NOTE | 2023-02-16 12:46 | NUR ---
SPOKE TO PATIENT ABOUT THE DC PLAN. PATIENT IS UPSET BECAUSE HE WAS TOLD THIS AM THAT HE HAD TO DO PT EVEN WHEN HIS FEET WERE SWOLLEN.CM EXPLANED TO PATIENT THAT [facility] REQUIRES PATIENT'S DO 3 HRS. OF PT DAILY TO DO REHAB. TO QUALIFY. PATIENT STATES I REALLY DO NOT WANT TO GO [place] THE [place]. PATIENT STATES I AM NOT GOING TO FIGHT WITH STAFF OVER DOING PT,I WILL JUST GO HOME IF THAT IS THE WAY IT IS. PATIENT STATED THAT DR. LOREDO WANTS ME TO GO TO THE [place].I REALLY DO NOT WANT TO GO. CM TOLD PATIENT TO THINK ABOUT HIS DECISIONS BECAUSE STAFF IS ONLY TRYING TO HELP HIM.
[2023-02-16 14:04] VITALS: BP 154/83
--- NOTE | 2023-02-16 14:05 | NUR ---
IN WITH PT FOR VS. PT AWAKE, WATCHING TELEVISION, IN BED, SUPINE. DENIES NEEDS AT THIS TIME. CALL LIGHT IN REACH.
--- NOTE | 2023-02-16 15:47 | NUR ---
PT IS CURRENTLY GETTING A NEB TREATMENT FROM RESPIRATORY THERAPIST. NO OTHER CARES OR NEEDED OR REQUESTED AT THIS TIME CALL LIGHT WITHIN REACH
--- NOTE | 2023-02-16 16:32 | NUR ---
WENT WITH TO HAVE A DISCUSSION WITH PATIENT ABOUT THE DC PLAN. PATIENT CONTINUES TO WANT TO GO TO THE [facility] FOR PLACEMENT. PATIENT MISSED AM PT. SESSION. PATIENT REMINDED BY MD AND THIS RN THAT PT MUST BE DONE IN ORDER TO QUALIFY FOR [facility] REHAB. PLACEMENT. PATIENT AGREED AND WILL DO PT ORDERED.
[2023-02-16 18:36] VITALS: BP 151/81
--- NOTE | 2023-02-16 18:39 | NUR ---
PATIENT SITTING UP IN BED WATCHING TV. VITALS AND I&O'S CHARTED. PATIENT REQUESTING HIS 2 SANDWHICHES, TREVORICHES GIVEN. CALL LIGHT IN REACH. NO FURTHER NEEDS AT THIS TIME.
--- NOTE | 2023-02-16 19:20 | NUR ---
REPORT RECEIVED FROM OFFGOING RNS ROXANNE.
[2023-02-16 21:22] VITALS: BP 169/76
--- NOTE | 2023-02-16 21:31 | NUR ---
2 sugar free jello provided. v/s, i&o's and blood sugar check done and recorded. denies further needs at this time.
--- NOTE | 2023-02-16 21:45 | NUR ---
PT ASSESSMENT COMPLETE. PT RESTING IN BED WITH EYES CLOSED. PT WAKES EASILY WHILE SENIOR ACTUARIAL ANALYST AT BEDSIDE. PT DENIES PAIN, NAUSEA, OR SOB. PT TOLERATING RA. LUNG SOUNDS WITH EXPIRATORY WHEEZES IN ALL LUNG BENZ. DRY COUGH NOTED DURING ASSESSMENT. SCHEDULED MEDICATIONS ADMINISTERED. IV FLUSHED WITH 10 ML NS. WNL. SL. PT DENIES FURTHER NEEDS AT THIS TIME. CALL LIGHT IN REACH.
--- NOTE | 2023-02-16 23:30 | NUR ---
PT ROUNDING. PT SITTING UP AT SIDE OF BED. URINAL EMPTIED. PT DENIES NEEDS AT THIS TIME. CALL LIGHT IN REACH.
--- NOTE | 2023-02-17 01:49 | NUR ---
answered patient's call asking for tv guide. provided. patient asked for coffee. provided. no further needs voiced. white board updated. emptied container with 475 yellow urine. patient is up sitting at the bed side watching tv.
--- NOTE | 2023-02-17 02:07 | NUR ---
PT UTILIZES CALL LIGHT, REQUESTS NICOTINE LOZENGE. PROVIDED. PT SITTING UP ON EDGE OF BED, DRINKING COFFEE. STATES THAT HE WAS UNABLE TO SLEEP. DENIES NEEDS AT THIS TIME. CALL LIGHT IN REACH.
[2023-02-17 06:26] VITALS: BP 151/96
--- NOTE | 2023-02-17 07:10 | NUR ---
PT REPORT RECEIVED FROM СЕРГЕЙ LAROSE.
--- NOTE | 2023-02-17 08:48 | NUR ---
IN FOR MED ADMINISTRATION AND PT ASSESSMENT. PT IS SITTING UP ON EDGE OF BED, TELEVISION ON, EATING HIS BREAKFAST. PT IS A&O X4. DENIES NEEDS AT THIS TIME. MEDS ADMINISTERED PER EMAR. CALL LIGHT IN REACH.
[2023-02-17 09:41] VITALS: BP 145/72
--- NOTE | 2023-02-17 09:45 | NUR ---
PATIENT SITTING UP ON EDGE OF BED USING LAPTOP COMPUTER. VITALS AND I&O'S CHARTED. CALL LIGHT IN REACH. NO FURTHER NEEDS AT THIS TIME.
--- NOTE | 2023-02-17 10:32 | NUR ---
ATTEMPTED AGAIN TO CONTACT [facility]/ADMISSIONS AT [facility] . NO ANSWER, LEFT MESSAGE FOR UPDATE.
--- NOTE | 2023-02-17 10:42 | NUR ---
PC TO DR. LOREDO. ADVISED HIM THAT THE PT IS COMPLAINING THAT HE HAS NOT BEEN RECEIVING "DOUBLE PORTIONS" OF MEALS DR. LOREDO ORDERED. THE PT CALLED THE KITCHEN AND COMPLAINED AND ALSO COMPLAINED TO JEAN CARLOS Maurice, STATING THAT "MIRNA NEEDS TO CALL DOWN THERE". I CALLED DIETARY AND WAS ADVISED THAT THE DIET IS 60G CONSISTENT CARB SO THEY CAN NOT DOUBLE THE PORTIONS REGARDLESS OF WHAT IS IN THE COMMENTS BY THE DOCTOR, AND THAT "KADEEM" TOLD HER SHE CAN'T DO IT UNLESS THE ORDER IS CHANGED TO 75G CARBS OR REGULAR. DR. LOREDO ADVISED THAT HE DID CHANGE THE ORDER YESTERDAY TO 75G CONSISTENT CARBS. THIS ORDER DID NOT SHOW UP IN THE PT'S ORDERS THEREFORE A VO WAS PUT IN TO CHANGE DIET FROM 6OG TO 75G CARB AT LUNCH. PT ADVISED.
--- NOTE | 2023-02-17 11:26 | NUR ---
PT REQUESTED NICOTINE LOZENGE. THIS WAS PROVIDED TO HIM PER EMAR. ADVISED PT HE CAN HAVE ONE EVERY HOUR NEEDED HE THOUGHT HE COULD HAVE THEM EVERY 2. PT VERBALIZED UNDERSTANDING. CALL LIGHT IN REACH. DENIES FURTHER NEEDS AT THIS TIME.
[2023-02-17] MEDS ORDERED: METHYLPREDNISOLO4 M1 PO (12:07)
[2023-02-17] MEDS ORDERED: LEVOFLOXACIN500 MG PO (12:07)
[2023-02-17 13:44] VITALS: BP 170/89
== END 2023-02-17 13:47 | disposition home or self-care (01) | DRG 191 ==
LOC: ED 15:04 → MS 17:02
PROVIDERS: Family Medicine; ADMIT Internal Medicine; ATTEND Internal Medicine
PROC: 5A09357 Assistance with Respiratory Ventilation, Less than 24 Consecutive Hours, Continuous Positive Airway Pressure (ICD-10-PCS; principal; 2023-02-13)
DX: J44.1 Chronic obstructive pulmonary disease with (acute) exacerbation (principal); Z68.42 Body mass index [BMI] 45.0-49.9, adult; E66.01 Morbid (severe) obesity due to excess calories; F39 Unspecified mood [affective] disorder; F60.9 Personality disorder, unspecified; E11.9 Type 2 diabetes mellitus without complications; I50.9 Heart failure, unspecified; F17.210 Nicotine dependence, cigarettes, uncomplicated; Z90.49 Acquired absence of other specified parts of digestive tract; Z98.890 Other specified postprocedural states; Z91.038 Other insect allergy status; Z79.899 Other long term (current) drug therapy; Z79.84 Long term (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 oral hypoglycemic drugs; Z79.51 Long term (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 inhaled steroids; Z79.82 Long term (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 aspirin
CPT/HCPCS: 36415; 71045; 80048; 80053; 82803; 83880; 84484; 85025; 85379; 93005; 93010; 94640; 94660; 94760; 97161; 97165; A9270; A9270-GY; J1200; J1815; J1956; J2920

== ENCOUNTER 2023-02-17 22:39 | Observation (INO) | payer MEDICARE ==
[~2023-02-17] VITALS: Ht 185.4 cm; Wt 164.0 kg
[~2023-02-17 22:39] MED LIST changes: +LEVOFLOXACIN500 MG PO
--- OUTSIDE RECORDS SUMMARY | 2023-02-17 22:40 | XMS ---
PreManage Notification: TY GAINES Security Area Manager Events No recent Security Events currently on file CRITERIA MET - [facility] - [facility] - 2 Visits in 30 Days CARE PROVIDERS KATJA [facility] 12/29/2019-Current PHONE: [phone] CARA TAPIA Sanitizerchase Null PHONE: [phone] KARLIE QUINTANILLA Internal Medicine Current PHONE: [phone] VALENTIN KIMBALL [facility] Current PHONE: Unknown PEGGY MICHELLE Nurse Practitioner: Family Current PHONE: Unknown ANNA GARCÍA Internal Medicine Current PHONE: [phone] RONALD DUNNE [facility] Plant Engineer Current PHONE: Unknown GERMAN HERNANDEZ Nurse Practitioner Current PHONE: Unknown IVETTE MARTI Nurse Practitioner Reji MANCILLA PHONE: [phone] KEYLA [facility] Current PHONE: [phone] Janki has no Care Guidelines for this patient. Care History Medical/Surgical 01/04/2020 [facility] - PATIENT RECVD NEBULIZER MEDICATION TODAY 01/04/2020. - NEBULIZER MACHINE WILL BE RECEIVED ON Thursday01/06/2020 AND PATIENT WILL BE SHOWN HOW TO USE THE NEBULIZER MACHINE. - PATIENT RECEIVED HIS HEAVY DUTY WALKER ON Thursday01/03/20. E.D. VISIT COUNT (12 MO.) 6 [facility]. TOTAL 6 NOTE: Visits indicate total known visits. ED/C VISIT TRACKING (12 MO.) 02/17/2023 22:39 [facility] TYPE: Emergency COMPLAINT: - SHORTNESS OF BREATH 02/13/2023 15:05 [facility] TYPE: Emergency [...] Emphysema, unspecified - Heart failure, unspecified - prison (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 aspirin - prison (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 oral hypoglycemic drugs - Other fdc (current) drug therapy - Personal history of nicotine dependence - Shortness of breath INPATIENT VISIT TRACKING (12 MO.) 02/13/2023 17:02 [facility] TYPE: Medical Surgical COMPLAINT: - COPD 02/08/2023 17:19 [facility] TYPE: Medical Surgical COMPLAINT: - ACUTE HYPOXIC RESPIRATORY FAILURE, COVID DIAGNOSES: - Acquired absence of other specified parts of digestive tract - Acquired absence of other specified parts of digestive tract - Acute respiratory failure with hypoxia - Acute respiratory failure with hypoxia - Chronic obstructive pulmonary disease, unspecified - COVID-19 - COVID-19 - Emphysema, unspecified - Emphysema, unspecified - Heart failure, unspecified - Heart failure, unspecified - prison (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 antibiotics - termite control technician (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 antibiotics - prison (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 aspirin - termite control technician (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 aspirin - prison (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 inhaled steroids - prison (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 inhaled steroids - termite control technician (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 oral hypoglycemic drugs - prison (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 oral hypoglycemic drugs - Nicotine dependence, cigarettes, uncomplicated - Nicotine dependence, cigarettes, uncomplicated - Other insect allergy status - Other insect allergy status - Other fdc (current) drug therapy - Other fdc (current) drug therapy - Other specified postprocedural states - Other specified postprocedural states - Problems related to living alone - Problems related to living alone - Type 2 diabetes mellitus without complications - Type 2 diabetes mellitus without complications 02/03/2023 11:45 [facility] TYPE: Medical [...] Hypertensive heart disease with heart failure - prison (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 aspirin - prison (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 aspirin - termite control technician (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 oral hypoglycemic drugs - termite control technician (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 oral hypoglycemic drugs - Nicotine dependence, cigarettes, uncomplicated - Nicotine dependence, cigarettes, uncomplicated - Obesity, unspecified - Obesity, unspecified - Obstructive sleep apnea (adult) (pediatric) - Obstructive sleep apnea (adult) (pediatric) - Other fdc (current) drug therapy - Other termite control technician (current) drug therapy - Other specified postprocedural states - Other specified postprocedural states - Shortness of breath - PATIENT'S OTHER NONCOMPL WITH MEDS REGIMEN FOR OTH - PATIENT'S OTHER NONCOMPL WITH MEDS REGIMEN FOR OTH 01/28/2023 09:[address] [facility] [place] TYPE: Critical Care COMPLAINT: - COPD EXACERBATION DIAGNOSES: - Acute respiratory failure with hypoxia - Body mass index [BMI] 45.0-49.9, adult - Chronic obstructive pulmonary disease with (acute) exacerbation - Contact with and (suspected) exposure to COVID-19 - Heart failure, unspecified - prison (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 aspirin - termite control technician (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 oral hypoglycemic drugs - Obesity, unspecified - Other insect allergy status - Other termite control technician (current) drug therapy - Personal history of nicotine dependence - Type 2 diabetes mellitus without complications [email or web address]
[2023-02-17 23:20] LABS: PH, VENOUS 7.345 (7.31-7.41)
[2023-02-17 23:23] LABS: MCV 88.6 fl (81-99)
[2023-02-17 23:26] LABS: BASOPHILS 0.7 % (0-2); EOSINOPHILS 0.3 % (0-6); HEMATOCRIT 46.7 % (35.0-50.0); LYMPHOCYTES 18.9 % (24-44); MCH 28.5 (27-36); MCHC 32.2 g/dl (30-36); NEUTROPHILS 75.1 % (39-80); PLATELET COUNT 137 K/uL (140-440); RBC 5.27 M/ul (4.3-5.7); RDW 15.6 (10.5-15.0)
[2023-02-17 23:39] LABS: ALBUMIN 2.9 g/dL (3.4-5.0); ALBUMIN/GLOBULIN RATIO 0.81 (1.1-2.4); ANION GAP 7.3 (7-21); BILIRUBIN, TOTAL 0.7 ng/dL (0.2-1.0); BUN/CREATININE RATIO 34.9 (6.0-28.6); CALCIUM 8.7 mg/dL (8.5-10.1); CREATININE, SERUM 1.06 mg/dL (0.70-1.30); POTASSIUM 4.3 mmol/L (3.5-5.1); PROTEIN, TOTAL 6.5 g/dL (6.4-8.2)
[2023-02-18 00:56] LABS: INFLUENZA B NAA NEGATIVE (NEGATIVE); RESPIRATORY SYNCYTIAL VIR NAA NEGATIVE (NEGATIVE)
--- NOTE | 2023-02-18 02:30 | NUR ---
PATIENT ARRIVED TO FLOOR VIA STRETCHER. REPORT RECIEVED FROM DOMINGO DAVID RN. ASSESSMENT AND VITAL SIGNS DONE. NEW PATIENT ADMISSION DONE. PATIENT IS ON BIPAP. CALL LIGHT WITH IN REACH. NO FURTHER NEEDS AT THIS TIME.
[2023-02-18 02:33] VITALS: BP 141/66
[2023-02-18 05:22] VITALS: BP 132/66
[2023-02-18 06:01] LABS: HEMATOCRIT 44.9 % (35.0-50.0); HEMOGLOBIN 14.6 g/dL (12.0-18.0); LYMPHOCYTES 3.6 % (24-44); MCH 28.7 (27-36); MCHC 32.4 g/dl (30-36); MCV 88.5 fl (81-99); MONOCYTES 1.7 % (0-12); NEUTROPHILS 94.7 % (39-80); PLATELET COUNT 125 K/uL (140-440); RBC 5.07 M/ul (4.3-5.7)
--- NOTE | 2023-02-18 06:07 | NUR ---
PATIENT CALLED FOR HELP. PATIENT WENT TO THE BATHROOM AND HAD A BM. JOSÉ LUIS WIPE ASSISTED. PATIENT IS BACK IN BED. CPOX AND O2 ARE ON. DENIES FURTHER NEEDS AT THIS TIME.
[2023-02-18 06:17] LABS: ALBUMIN/GLOBULIN RATIO 0.86 (1.1-2.4); ANION GAP 8.1 (7-21); BILIRUBIN, TOTAL 0.6 ng/dL (0.2-1.0); BUN/CREATININE RATIO 40.44 (6.0-28.6); CALCIUM 8.7 mg/dL (8.5-10.1); CREATININE, SERUM 0.89 mg/dL (0.70-1.30); POTASSIUM 5.1 mmol/L (3.5-5.1); PROTEIN, TOTAL 6.5 g/dL (6.4-8.2)
--- NOTE | 2023-02-18 07:16 | NUR ---
VERBAL BEDSIDE REPORT RECEIVED FROM СЕРГЕЙ GARCIA. PT SITS UP ON BEDSIDE WITH BPAP IN PLACE. PT AWAKE AND ALERT.
--- NOTE | 2023-02-18 08:00 | NUR ---
Spoke with Harris. He is sitting on the edge of the bed with a Bipap on. In depth conversation regarding returns to the hospital and placement. Pt states he gets short of breath and gets scared. He then returns to the hospital. We discussed [facility] and I just don't think they are ever going to accept him. He wants to go there as he has an Rn friend who works there. He wants to go there as he feels in the past he was starved at SNFs. He is willing to go a Snf and will go to [facility] if they agree to accept him. He insists on having a Regular diet. I let him know he is able to refuse anything he does not want. It is then our job to let him know what the consequences for his actions are. He does have the right to do anything he wants. He just wants a regular diet. He states he does not want to starve. He agrees to go to [facility]. Chart faxed to Latisha.
--- NOTE | 2023-02-18 09:47 | NUR ---
NOTIFIED OF WHEEZES THROUGHOUT LUNGS AND PT DESIRED OT HAVE A BREATHING TX. STATES HE IS PUTTING IN NEW ORDERS.
[2023-02-18 10:19] VITALS: BP 140/67
--- NOTE | 2023-02-18 10:23 | NUR ---
PATIENT IN BED WATCHING TV AT THIS TIME. VITALS AND I&O'S CHARTED. CALL LIGHT IN REACH. NO FURTHER NEEDS AT THIS TIME.
--- NOTE | 2023-02-18 10:30 | NUR ---
Spoke with Latisha from [facility] and they are declining this pt. In and spoke with Ken. Casillas. He has called a friend thats a RN from [facility] and asked if she will have their admin call us. We again discussed we have attempted to place him there for 2 weeks and they have not accepted him. I do not think this will happen. Pt spoke with Dr. Rice, he feels if he had a BIPAP he could go home. He feels this would help him to stabilize when he gets sob and could remain at home. Per Doc pt would qualify for a noninvasive vent with his hypoxic respiratory failure and frequent copd exacerbations. I contacted An states she has documentation from Dr. Galvez last spring stating need. I will fax paperwork when completed by Dr. Rice.
--- NOTE | 2023-02-18 12:39 | NUR ---
PT SITS UP ON BEDSIDE WITH FOOD TRAY. EATS MEAL AND WATCHES TV. NO REQUESTS AT THIS TIME.
[2023-02-18 14:45] VITALS: BP 138/97
--- NOTE | 2023-02-18 14:49 | NUR ---
PATIENT SITTING UP IN EDGE OF BED USING LAPTOP. VITALS AND I&O'S CHARTED. CALL LIGHT IN REACH. NO FURTHER NEEDS AT THIS TIME.
--- NOTE | 2023-02-18 15:07 | NUR ---
PT SITS UP ON SIDE OF BED OVER BEDSIDE TABLE WITH LAPTOP. COFFEE WITH CREAM PROVIDED PER PT REQUEST. PT STATES HE TOOK A NAP AND IS FEELING MUCH BETTER THAN THIS MORNING. NO FURTHER REQUESTS AT THIS TIME.
--- NOTE | 2023-02-18 15:38 | NUR ---
Face sheet, Order for Noninvasive vent, H&P, notes, ABGs faxed to Ann at [facility].
--- NOTE | 2023-02-18 17:00 | NUR ---
PT RESTS WITH EYES CLOSED, RESP EVEN AND UNLABORED. 4LPM O2 VIA NC, PT SATS 99%.
[2023-02-18 18:23] VITALS: BP 139/89
--- NOTE | 2023-02-18 18:26 | NUR ---
PATIENT SITTING UP ON EDGE OF BED USING LAPTOP. VITALS AND I&O'S CHARTED. PATIENT REQUESTING 2 CHOCOLATE PUDDINGS AND A MILK, BOTH GIVEN TO PATIENT. CALL LIGHT IN REACH. NO FURTHER NEEDS AT THIS TIME.
--- NOTE | 2023-02-18 18:33 | NUR ---
PT ON 4LPM OF O2 VIA NC DURING THE DAY. USES BIPAP WHEN SLEEPING/NAPPING. PT RECEIVES BREATHING TREATMENTS SCHEDULED DURING THE DAY. PT REPORTS HE FEELS BETTER AFTER NAPPING. PT SITS UP ON BEDSIDE, WATCHES TV AND USES LAPTOP MOST OF THE DAY. PT EATING A REGULAR DIET, CBG LEVELS MANAGED WITH SLIDING SCALE INSULIN, PT TOLERATES THIS WELL. NICOTINE PATCH IN PLACE TO RIGHT HIP.
--- NOTE | 2023-02-18 20:02 | NUR ---
Patient sitting up at edge of bed, no complaints, RT in to breathing tx. Report given by day shift RN. call light within reach.
[2023-02-18 20:47] VITALS: BP 116/52
--- NOTE | 2023-02-18 22:08 | NUR ---
Patient in bed now with lights out feeling tired. VSS, Oxygen turned down to 2 liters NC from 4 liters by RT with sats maintaining at 97%. patient denies increased SOB, lungs diminished with exp wheeze prior to treatment, blood sugar 132 no ss insulin required, did get 10u glargine, HS snack given per rrequest. patient states he feels he is " breathing better". no complaints call light in reach.
--- NOTE | 2023-02-19 00:36 | NUR ---
Patient resting on side, no distress noted, RR even and unlabored, 2 liters oxygen via NC on with sats >92%. lights are out, call light in reach.
[2023-02-19 02:07] VITALS: BP 132/67
--- NOTE | 2023-02-19 02:09 | NUR ---
Patient given his douneb earlier, tolerated well and states they help him breath better, requested and given sandwich and milk, VSS, no compliants, no noted resp distress, call light within reach.
[2023-02-19 05:30] LABS: BASOPHILS 0.8 % (0-2); EOSINOPHILS 1.6 % (0-6); HEMATOCRIT 43.6 % (35.0-50.0); HEMOGLOBIN 14.2 g/dL (12.0-18.0); LYMPHOCYTES 30.1 % (24-44); MCH 28.9 (27-36); MCHC 32.5 g/dl (30-36); MCV 88.8 fl (81-99); MONOCYTES 5.2 % (0-12); NEUTROPHILS 62.3 % (39-80); PLATELET COUNT 114 K/uL (140-440); RBC 4.91 M/ul (4.3-5.7); RDW 16.3 (10.5-15.0)
[2023-02-19 05:37] LABS: ANION GAP 2.8 (7-21); BUN/CREATININE RATIO 30.39 (6.0-28.6); CALCIUM 8.7 mg/dL (8.5-10.1); CREATININE, SERUM 1.02 mg/dL (0.70-1.30); POTASSIUM 4.8 mmol/L (3.5-5.1)
[2023-02-19 05:52] VITALS: BP 122/50
--- NOTE | 2023-02-19 05:54 | NUR ---
Patient awake and requesting a douneb tx. RT called and coming up to do. Patient is not in any resp distress, O2 sats 97%, VSS, lungs continue to be diminished throughout and exp wheeze. 3-4+edema to BLE, oxygen on at 2 liters/NC. Sitting up now at bedside drinking a cup of coffee, no compliants, call light in reach.
[2023-02-19] MEDS ORDERED: NICOTINE LOZENGE4 MG BUCCAL (07:00)
[2023-02-19] MEDS ORDERED: BUPROPION XL150 MG PO (07:00)
--- NOTE | 2023-02-19 07:08 | NUR ---
VERBAL REPORT RECEIVED FROM СЕРГЕЙ JAIMES. PT AWAKE AND ALERT, SITS ON BEDSIDE OVER BEDSIDE TABLE. WATCHES TV, REQUESTS NICOTINE LOZENGE.
--- NOTE | 2023-02-19 09:10 | NUR ---
Called and spoke with Ann. She states paperwork for noninvasive vent has been submitted to Medicare and they will let us know when they have auth.
--- NOTE | 2023-02-19 09:16 | NUR ---
VSS, PT DENIES SOB. O2 SATS 100% ON 2LPM NC. PT TITRATED TO RA.
[2023-02-19 09:57] VITALS: BP 117/52
--- NOTE | 2023-02-19 09:57 | NUR ---
PT O2 SATS 92% ON RA.
--- NOTE | 2023-02-19 13:38 | NUR ---
PT USES CALL LIGHT, REPORTS SOB. PT ON RA, 4LPM O2 APPLIED VIA NC, PT O2 SATS UP TO 100%, O2 TITRATED DOWN TO 2LPM, PT SATS 99%. PT OFFERED BREATHING TX BY RT, PT REFUSES, STATES HE FEELS BETTER WITH THE OXYGEN. SOB RESOLVED. PT REFUSES CONTINUOUS PULSE OXIMETER. 2LPM O2 VIA NC REMAINS IN PLACE.
[2023-02-19 14:47] VITALS: BP 116/53
--- NOTE | 2023-02-19 15:50 | NUR ---
PT SITS UP ON BEDSIDE OVER BEDSIDE TABLE AND USES LAPTOP AND WATCHES TV. PT ON RA, STATES RT RECOMMENDED THIS AFTER HIS BREATHING TX. PT STATES HE FEELS BETTER. COFFEE WITH CREAM PROVIDED PER PT REQUESTS. NO FURTHER REQUESTS AT THIS TIME.
--- NOTE | 2023-02-19 16:00 | NUR ---
Received a call from Ann. Auth is complete. She asks I let the pt know there will be a $200 copay per month for the NIV. In and updated Maco and he states he is on a fixed income. He can absolutely not pay this. I called [facility] and they state they can complete hardship paperwork for this pt. He must complete the paper work in the next couple of days. He can dc tomorrow, they have him scheduled to see their RT to provide instruction for the NIV. The copay will be approx $50 per month. I spoke with Maco he states, "I am not paying anything". We discussed this is a $1600 a month+ machine. There will be a copay from Medicare as they pay 80%. Pt declines and states he will go home. Updated charge nurse and Dr. Rice. Dr Rice will speak with pt.
--- NOTE | 2023-02-19 16:20 | NUR ---
Updated by Dr. Rice, pt will dc. In and spoke with pt and he states he has a concentrator at home, but there isn't any place to plug in his canula. I called [facility] and they took a picture and texted to me with the location circled. They state they delivered 5 cannula's to his home recently. I took the picture and showed Maco. I asked him to take a photo so he would have it at home. He declined. He is now stating he can't go home as he doesn't have canulas. I asked the staff to provide him with canulas to take home. Pt wanting to stay until tomorrow. Discussed with pt he stayed as we were attempting to get him NIV that would help him prevent readmission. He is refusing this. We are no longer providing care he cannot complete himself at home. Pt stating he wants to stay for dinner and will then dc to home. He denies other needs. I let him know [facility] will visit him tomorrow am to check his concentrator is working correctly and he has supplies needed.
[2023-02-19 18:12] VITALS: BP 130/72
--- NOTE | 2023-02-19 18:33 | NUR ---
AT DISCHARGE PT REMOVED IV HIMSELF. PT OFFERED O2 TANK TO TAKE HOME, PT REFUSED X4. DISCUSSED READMISSIONS AND PT SOB, EDUCATED ON USE OF O2 WITH ACTIVITY. PT VERBALIZED UNDERSTANDING, CONTINUES TO REFUSE O2 TANK TO TAKE HOME. DISCUSSED USE OF O2 CONCENTRATOR AT HOME, [place] ARRIVING TO HIS HOME IN AM, PT VERBALIZED UNDERSTANDING. PT DISCHARGED VIA WHEELCHAIR TO [facility]. ALL BELONGINGS WITH PT.
== END 2023-02-19 18:33 | disposition home or self-care (01) ==
LOC: ED 22:39 → MS 22:40 → ED 02-18 00:02 → MS 02-18 00:02
PROVIDERS: Family Medicine; ADMIT Family Medicine; ATTEND Family Medicine
PROC: 5A09357 Assistance with Respiratory Ventilation, Less than 24 Consecutive Hours, Continuous Positive Airway Pressure (ICD-10-PCS; principal; 2023-02-18)
DX: U07.1 COVID-19 (principal); J96.21 Acute and chronic respiratory failure with hypoxia; J96.22 Acute and chronic respiratory failure with hypercapnia; J44.1 Chronic obstructive pulmonary disease with (acute) exacerbation; E66.2 Morbid (severe) obesity with alveolar hypoventilation; Z68.42 Body mass index [BMI] 45.0-49.9, adult; F41.9 Anxiety disorder, unspecified; E11.9 Type 2 diabetes mellitus without complications; R60.0 Localized edema; F17.210 Nicotine dependence, cigarettes, uncomplicated; I11.0 Hypertensive heart disease with heart failure; I50.9 Heart failure, unspecified; Z98.890 Other specified postprocedural states; Z90.49 Acquired absence of other specified parts of digestive tract; Z91.148 Patient's other noncompliance with medication regimen for other reason; Z91.038 Other insect allergy status; Z79.899 Other long term (current) drug therapy; Z79.2 Long term (current) use of antibiotics; Z79.84 Long term (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 oral hypoglycemic drugs; Z79.82 Long term (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 aspirin; Z79.51 Long term (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 inhaled steroids
CPT/HCPCS: 36415; 71045; 80048; 80053; 82803; 85025; 87502; 94640; 94660; 94760; 94762; 96372; 96374; 96375; 99285-25; A9270; G0378; J1650; J1815; J2060; J2930; U0002

== ENCOUNTER 2023-12-01 15:48 | Inpatient (IN) | payer MEDICARE ==
[~2023-12-01] VITALS: Ht 185.4 cm; Wt 177.4 kg
[~2023-12-01 15:48] MED LIST changes: +ALBUTEROL2.5 MG/3 M INH; +BUPROPION XL150 MG PO; +NICOTINE LOZENGE4 MG BUCCAL
[2023-12-01] MEDS ORDERED: methylPREDNISolone SOD SUCC 125 MG/2 ML VIAL ONE (15:51)
[2023-12-01 15:59] LABS: BASOPHILS 0.6 % (0-2); HEMATOCRIT 43.9 % (35.0-50.0); HEMOGLOBIN 14.4 g/dL (12.0-18.0); MCH 27.5 (27-36); MCHC 32.8 g/dl (30-36); MONOCYTES 8.3 % (0-12); NEUTROPHILS 56.1 % (39-80); PLATELET COUNT 221 K/uL (140-440); RBC 5.22 M/ul (4.3-5.7)
[2023-12-01] MEDS ORDERED: methylPREDNISolone SOD SUCC 125 MG/2 ML VIAL IV ONE (16:00)
[2023-12-01] MEDS ORDERED: ALBUTEROL SULFATE 0.5% 2.5 MG/0.5 ML VIAL INH ONE (16:00)
[2023-12-01] MEDS ORDERED: IPRATROPIUM BROMIDE 2.5 ML VIAL INH ONE (16:00)
[2023-12-01 16:23] LABS: ALBUMIN 3.4 g/dL (3.4-5.0); ALBUMIN/GLOBULIN RATIO 0.81 (1.1-2.4); ANION GAP 9.1 (7-21); BILIRUBIN, TOTAL 0.4 ng/dL (0.2-1.0); BUN/CREATININE RATIO 14.42 (6.0-28.6); CALCIUM 9.2 mg/dL (8.5-10.1); CREATININE, SERUM 1.04 mg/dL (0.70-1.30); POTASSIUM 4.1 mmol/L (3.5-5.1); PROTEIN, TOTAL 7.6 g/dL (6.4-8.2)
[2023-12-01] MEDS ORDERED: ALBUTEROL/IPRATROPIUM 3 ML NEB INH ONE (16:30)
[2023-12-01 16:31] LABS: PH, VENOUS 7.292 (7.31-7.41)
[2023-12-01 16:44] LABS: INFLUENZA B NAA NEGATIVE (NEGATIVE); RESPIRATORY SYNCYTIAL VIR NAA NEGATIVE (NEGATIVE)
[2023-12-01 17:05] LABS: PH, VENOUS 7.343 (7.31-7.41)
[2023-12-01] MEDS ORDERED: PANTOPRAZOLE SODIUM 40 MG TABEC PO SCH (18:15)
[2023-12-01] MEDS ORDERED: AZITHROMYCIN 500 MG in DEXTROSE 5% 250 ML IV SCH ×2 (18:15→18:34)
[2023-12-01] MEDS ORDERED: DEXTROSE 50% 50 ML SYR IV PRN ×2 (18:30)
[2023-12-01] MEDS ORDERED: ondansetron HCL 4 MG/2 ML VIAL IV PRN (18:30)
[2023-12-01] MEDS ORDERED: ACETAMINOPHEN 325 MG TAB PO PRN (18:30)
[2023-12-01] MEDS ORDERED: LACTATED RINGER'S 1,000 ML IV SCH (18:30)
[2023-12-01] MEDS ORDERED: PROCHLORPERAZINE EDISYLATE 10 MG/2 ML VIAL IV PRN (18:30)
[2023-12-01] MEDS ORDERED: DEXTROSE 5% 1,000 ML IV PRN (18:30)
[2023-12-01] MEDS ORDERED: GLUCAGON,HUMAN RECOMBINANT 1 MG/ML VIAL SUB-Q PRN (18:30)
[2023-12-01] MEDS ORDERED: IBLOOD GLUCOSE TEST STRIP 1 EA TEST XX PRN (18:30)
[2023-12-01 18:34] VITALS: BP 154/112
[2023-12-01] MEDS ORDERED: LOSARTAN POTASS25 MG PO (18:44)
[2023-12-01] MEDS ORDERED: SUCRALFATE1 GM PO (18:45)
[2023-12-01] MEDS ORDERED: ALBUTEROL/IPRATROPIUM 3 ML NEB INH SCH (20:00)
[2023-12-01 20:24] LABS: PH, VENOUS 7.383 (7.31-7.41)
[2023-12-01 20:44] VITALS: BP 158/94
[2023-12-01] MEDS ORDERED: INSULIN LISPRO 100 UNIT/ML ML SUB-Q SCH (21:00)
[2023-12-01] MEDS ORDERED: IBLOOD GLUCOSE TEST STRIP 1 EA TEST VI SCH (21:00)
[2023-12-01] MEDS ORDERED: diphenhydrAMINE HCL 50 MG/ML VIAL IV PRN (21:15)
--- NOTE | 2023-12-01 21:58 | EKG ---
[facility] [address] [facility] [place] [address] Signed Sinus tachycardia Possible Anterior infarct (cited on or before 25-DEC-2019) Abnormal ECG When compared with ECG of 10-OCT-2023 13:34, No significant change was found Confirmed by LENA LOREDO MD ([id number]) on 12/01/2023 9:58:19 PM Electronically Signed By: LENA LOREDO 12/01/23 [id number] PATIENT NAME: MADDISON GAINESYanna DRAKE Electrocardiogram DATE OF : 55 PHYSICIAN: LENA LOREDO REPORT #: [id number] REPORT IS CONFIDENTIAL AND NOT TO BE RELEASED WITHOUT AUTHORIZATION
[2023-12-01] MEDS ORDERED: methylPREDNISolone SOD SUCC 40 MG/ML VIAL IV SCH (22:00)
[2023-12-01 23:03] VITALS: BP 136/64
[2023-12-02] VITALS (11 sets, daily range): BP systolic 109–157; BP diastolic 67–84
[2023-12-02] MEDS ORDERED: ALBUTEROL SULFATE 0.083% 3 ML VIAL INH PRN (01:30)
[2023-12-02 05:32] LABS: BASOPHILS 0.5 % (0-2); HEMATOCRIT 42.1 % (35.0-50.0); HEMOGLOBIN 13.8 g/dL (12.0-18.0); LYMPHOCYTES 7.9 % (24-44); MCH 27.5 (27-36); MCHC 32.7 g/dl (30-36); MONOCYTES 1.4 % (0-12); NEUTROPHILS 90.2 % (39-80); PLATELET COUNT 194 K/uL (140-440); RBC 5.01 M/ul (4.3-5.7); RDW 16.5 (10.5-15.0)
[2023-12-02 05:47] LABS: ALBUMIN 3.2 g/dL (3.4-5.0); ALBUMIN/GLOBULIN RATIO 0.78 (1.1-2.4); ANION GAP 9.5 (7-21); BILIRUBIN, TOTAL 0.3 ng/dL (0.2-1.0); BUN/CREATININE RATIO 12.38 (6.0-28.6); CALCIUM 8.7 mg/dL (8.5-10.1); CREATININE, SERUM 1.13 mg/dL (0.70-1.30); MAGNESIUM 1.8 mg/dL (1.8-2.4); POTASSIUM 4.5 mmol/L (3.5-5.1); PROTEIN, TOTAL 7.3 g/dL (6.4-8.2)
[2023-12-02] MEDS ORDERED: PHARMACY RENAL DOSE ADJUSTMENT 1 DOSE MISC PO SCH (12:00)
[2023-12-02] MEDS ORDERED: OMEPRAZOLE40 MG PO (17:16)
[2023-12-03 05:18] VITALS: BP 145/77
[2023-12-03 05:28] VITALS: BP 145/77
[2023-12-03] MEDS ORDERED: METHYLPREDNISOLO4 M1 PO (10:00)
[2023-12-03 10:09] VITALS: BP 148/74
[2023-12-03] MEDS ORDERED: AZITHROMYCIN 500 MG in DEXTROSE 5% 250 ML IV ONE (10:15)
[2023-12-03 10:48] VITALS: BP 148/74
[2023-12-03 11:37] VITALS: BP 166/80
== END 2023-12-03 11:55 | disposition home or self-care (01) | DRG 190 ==
LOC: ED 15:48 → MS 17:46 → CCU 17:46 → MS 12-02 15:10
PROVIDERS: Emergency Medicine; ADMIT Internal Medicine; ATTEND Internal Medicine
PROC: 5A09357 Assistance with Respiratory Ventilation, Less than 24 Consecutive Hours, Continuous Positive Airway Pressure (ICD-10-PCS; principal; 2023-12-01)
DX: J44.1 Chronic obstructive pulmonary disease with (acute) exacerbation (principal); J96.21 Acute and chronic respiratory failure with hypoxia; J96.22 Acute and chronic respiratory failure with hypercapnia; E11.9 Type 2 diabetes mellitus without complications; E66.01 Morbid (severe) obesity due to excess calories; I11.0 Hypertensive heart disease with heart failure; I50.9 Heart failure, unspecified; J43.9 Emphysema, unspecified; F17.210 Nicotine dependence, cigarettes, uncomplicated; Z90.49 Acquired absence of other specified parts of digestive tract; Z98.890 Other specified postprocedural states; Z91.038 Other insect allergy status; Z79.899 Other long term (current) drug therapy; Z79.2 Long term (current) use of antibiotics; Z79.51 Long term (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 inhaled steroids; Z79.84 Long term (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 oral hypoglycemic drugs; Z79.82 Long term (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 aspirin
CPT/HCPCS: 36415; 71045; 80053; 82803; 83735; 83880; 84484; 85025; 85379; 87502; 93005; 93010; 94640; 94660; 94760; A9270; J0456; J1200; J1815; J2919; J7060; U0002

== ENCOUNTER 2024-02-24 16:49 | Observation (INO) | payer MEDICARE ==
[~2024-02-24] VITALS: Ht 185.4 cm; Wt 174.3 kg
[~2024-02-24 16:49] MED LIST changes: +LOSARTAN POTASS25 MG PO; +OMEPRAZOLE40 MG PO; +SUCRALFATE1 GM PO
[2024-02-24 17:10] LABS: BASOPHILS 1.1 % (0-2); EOSINOPHILS 1.4 % (0-6); HEMATOCRIT 44.7 % (35.0-50.0); HEMOGLOBIN 14.8 g/dL (12.0-18.0); LYMPHOCYTES 24.3 % (24-44); MCH 28.3 (27-36); MCV 85.7 fl (81-99); MONOCYTES 6.8 % (0-12); NEUTROPHILS 66.4 % (39-80); PLATELET COUNT 198 K/uL (140-440); RBC 5.22 M/ul (4.3-5.7); RDW 15.4 (10.5-15.0)
[2024-02-24] MEDS ORDERED: IPRATROPIUM BROMIDE 2.5 ML VIAL INH ONE (17:15)
[2024-02-24] MEDS ORDERED: ALBUTEROL/IPRATROPIUM 3 ML NEB INH PRN (17:15)
[2024-02-24 17:17] LABS: PH, VENOUS 7.382 (7.31-7.41)
[2024-02-24] MEDS ORDERED: ALBUTEROL SULFATE 0.5% 2.5 MG/0.5 ML VIAL ONE (17:24)
[2024-02-24 17:30] LABS: ALBUMIN 3.3 g/dL (3.4-5.0); ALBUMIN/GLOBULIN RATIO 0.8 (1.1-2.4); BILIRUBIN, TOTAL 0.4 ng/dL (0.2-1.0); BUN/CREATININE RATIO 12.22 (6.0-28.6); CALCIUM 9.1 mg/dL (8.5-10.1); CREATININE, SERUM 0.9 mg/dL (0.70-1.30); MAGNESIUM 1.9 mg/dL (1.8-2.4); PROTEIN, TOTAL 7.4 g/dL (6.4-8.2)
[2024-02-24] MEDS ORDERED: ALBUTEROL SULFATE 0.5% 2.5 MG/0.5 ML VIAL INH ONE (17:45)
[2024-02-24 17:47] LABS: BILIRUBIN, URINE NEGATIVE (negative); BLOOD/HGB, URINE NEGATIVE (Negative); KETONE, URINE NEGATIVE (Negative); LEUK ESTERASE, URINE NEGATIVE (negative); NITRITE, URINE NEGATIVE (negative); PH, URINE 5.5 (5-7)
[2024-02-24 17:54] LABS: EPITHELIAL CELLS, URINE NONE SEEN /lpf (0-1+); RED BLOOD CELLS, URINE 0-1 /hpf (0-5); WHITE BLOOD CELLS, URINE 0-1 /HPF (0-5)
[2024-02-24 17:55] LABS: BACTERIA, URINE NONE SEEN /hpf (negative); CASTS, URINE NONE SEEN \\lpf; COLLECTION TYPE, URINE CLEAN CATCH; CRYSTALS, URINE NONE SEEN (0-1+); REFLEX CULTURE, URINE No (No)
[2024-02-24] MEDS ORDERED: LORazepam 2 MG/ML VIAL IV ONE (18:30)
[2024-02-24] MEDS ORDERED: hydrALAZINE HCL 20 MG/ML VIAL IV ONE (18:45)
[2024-02-24 18:46] LABS: INFLUENZA B NAA NEGATIVE (NEGATIVE); RESPIRATORY SYNCYTIAL VIR NAA NEGATIVE (NEGATIVE)
[2024-02-24] MEDS ORDERED: PREDNISONE20 MG PO (18:56)
[2024-02-24] MEDS ORDERED: LOSARTAN POTASSIUM 25 MG TAB PO ONE (20:00)
[2024-02-24] MEDS ORDERED: carvediloL 3.125 MG TAB PO ONE (20:00)
[2024-02-24] MEDS ORDERED: MELATONIN 3 MG TAB PO PRN (21:00)
[2024-02-24] MEDS ORDERED: BUDESONIDE 0.5 MG/2 ML VIAL INH SCH (21:12)
[2024-02-24] MEDS ORDERED: ACETAMINOPHEN 325 MG TAB PO PRN (21:15)
[2024-02-24] MEDS ORDERED: DEXTROSE 50% 50 ML SYR IV PRN ×2 (21:15)
[2024-02-24] MEDS ORDERED: bisacodyL 10 MG SUPP PR PRN (21:15)
[2024-02-24] MEDS ORDERED: DEXTROSE 5% 1,000 ML IV PRN (21:15)
[2024-02-24] MEDS ORDERED: ALBUTEROL SULFATE 0.083% 3 ML VIAL INH PRN (21:15)
[2024-02-24] MEDS ORDERED: IBLOOD GLUCOSE TEST STRIP 1 EA TEST XX PRN (21:15)
[2024-02-24] MEDS ORDERED: PROCHLORPERAZINE EDISYLATE 10 MG/2 ML VIAL IV PRN (21:15)
[2024-02-24] MEDS ORDERED: GLUCAGON,HUMAN RECOMBINANT 1 MG/ML VIAL SUB-Q PRN (21:15)
[2024-02-24] MEDS ORDERED: ondansetron HCL 4 MG/2 ML VIAL IV PRN (21:15)
[2024-02-24] MEDS ORDERED: predniSONE 20 MG TAB PO SCH (21:30)
[2024-02-24] MEDS ORDERED: BENZONATATE 100 MG CAP PO PRN (22:00)
[2024-02-24] MEDS ORDERED: GUAIFENESIN/DEXTROMETHORPHAN 5 ML SYRUP PO PRN (22:00)
--- NOTE | 2024-02-24 22:00 | NUR ---
PT ADMITTED TO ROOM 112 VIA STRETCHER. PT ABLE TO TRANSFER SELF TO BED W/ SBA.VS OBTAINED-TACHYPNEA AND TACHYCARDIA NOTED. REPORTS LEFT ARM PAIN EARLIER, STATES IS RESOLVING. ORIENTED X 4. LS DIM W/ EXP WHEEZES THROUGHOUT. PT DESATS W/ ACTIVITY AND EXERTION. HAS MAINTAINED O2 SATS >90% ON RA. MPC NOTED. SOB & BEEBE. HRR, TACHY. BTA, LBM TODAY. USES URINAL W/ ASSIST. LAC SL WNL. HS SNACK PROVIDED PER REQUEST. CALL LIGHT AND TV REMOTE WITHIN REACH.
[2024-02-24 22:14] VITALS: BP 153/84
[2024-02-24 23:04] VITALS: BP 153/84
[2024-02-25] VITALS (8 sets, daily range): BP systolic 142–189; BP diastolic 61–94
--- NOTE | 2024-02-25 00:53 | NUR ---
PT SLEEPING SOUNDLY. APPEARS COMFORTABLE. CALL LIGHT WITHIN REACH.
--- NOTE | 2024-02-25 03:02 | NUR ---
call light answered, pt assisted with use of urinal and voided 200mls yellow urine. no additional needs or concerns verbalized, call light in reach.
--- NOTE | 2024-02-25 03:58 | NUR ---
PT SITTING ON EOB, USING BACK YARD PERSON. CALL LIGHT WITHIN REACH.
[2024-02-25 05:48] LABS: BASOPHILS 0.2 % (0-2); EOSINOPHILS 0.1 % (0-6); HEMATOCRIT 43.7 % (35.0-50.0); HEMOGLOBIN 14.6 g/dL (12.0-18.0); LYMPHOCYTES 6.5 % (24-44); MCH 28.3 (27-36); MCHC 33.4 g/dl (30-36); MCV 84.7 fl (81-99); MONOCYTES 0.9 % (0-12); NEUTROPHILS 92.3 % (39-80); PLATELET COUNT 208 K/uL (140-440); RBC 5.16 M/ul (4.3-5.7); RDW 15.4 (10.5-15.0)
[2024-02-25 05:59] LABS: ANION GAP 10.7 (7-21); BUN/CREATININE RATIO 12.26 (6.0-28.6); CALCIUM 9.5 mg/dL (8.5-10.1); CREATININE, SERUM 1.06 mg/dL (0.70-1.30); MAGNESIUM 1.9 mg/dL (1.8-2.4); POTASSIUM 4.7 mmol/L (3.5-5.1)
--- NOTE | 2024-02-25 06:38 | NUR ---
PT UP IN RECLINER, REPORTS FEELING BETTER THIS AM. ON RA, DENIES SOB AT REST.
--- NOTE | 2024-02-25 07:05 | NUR ---
PATIENT IS SITTING UPRIGHT IN THE CHAIR WITH 2 L OXYGEN ON VIA NC. PATIENT EXPRESSES FRUSTRATION AND BEING SHORT OF BREATH. PATIENT STATED HE CALLED. RN STATED SHE WILL CALL RT AND PULL THE BREATHING TREATMENT IF THEY ARE NOT UP HERE SOON. SPO2 IS 97%. REPORT RECEIVED FROM ASSISTANT COUNSEL RN HAILEY. PATIENT STATED NO FURTHER NEEDS AT THIS TIME. CALL LIGHT AND PERSONAL BELONGINGS ARE WITHIN REACH.
[2024-02-25] MEDS ORDERED: INSULIN LISPRO 100 UNIT/ML ML SUB-Q SCH ×2 (08:00→12:00)
[2024-02-25] MEDS ORDERED: IBLOOD GLUCOSE TEST STRIP 1 EA TEST VI SCH (08:00)
[2024-02-25] MEDS ORDERED: ALBUTEROL/IPRATROPIUM 3 ML NEB INH PRN (08:00)
--- NOTE | 2024-02-25 08:01 | NUR ---
0800 MEDICATIONS ADMINISTERED PER THE EMAR. PATIENT IS SITTING UPRIGHT IN THE CHAIR AND GETTING A BREATHING TREATMENT. BERNARD, RT IS IN THE ROOM NOW. BREAKFAST TRAY IS SET UP IN FRONT OF THE PATIENT. PATIENT STATED NO FURTHER NEEDS AT THIS TIME. CALL LIGHT AND PERSONAL BELONGINGS ARE WITHIN REACH.
--- NOTE | 2024-02-25 08:09 | NUR ---
UR CLINICAL REVIEW: 2MN VERSALUS RULE, MEETS INPT CRITERIA WILL NOTIFY PROVIDER. MEDICARE OBS 02/24/24 @ 2008 ORDER MATCHES REG NO AUTH REQUIRED PER MEDICARE RULES PLAN TO DC TO HOME WHEN STABLE 02/25/24
--- NOTE | 2024-02-25 08:28 | NUR ---
RON IN ELIGIBILITY WILL REVIEW IF PATIENT IS ELIGIBLE FOR MEDICAID.
[2024-02-25] MEDS ORDERED: LOSARTAN POTASSIUM 25 MG TAB PO SCH (09:00)
[2024-02-25] MEDS ORDERED: CEFTRIAXONE/SODIUM CHLORIDE 2 GM/100 ML PIGGYBACK IV SCH (09:00)
[2024-02-25] MEDS ORDERED: SUCRALFATE 1 GM TAB PO SCH (09:00)
[2024-02-25] MEDS ORDERED: PANTOPRAZOLE SODIUM 40 MG TABEC PO SCH (09:00)
[2024-02-25] MEDS ORDERED: AZITHROMYCIN 250 MG TAB PO SCH (09:00)
[2024-02-25] MEDS ORDERED: carvediloL 3.125 MG TAB PO SCH (09:00)
[2024-02-25] MEDS ORDERED: ENOXAPARIN SODIUM 40 MG/0.4 ML SYR SUB-Q SCH (09:00)
--- NOTE | 2024-02-25 09:05 | NUR ---
PATIENT IS SITTING AT THE EDGE OF BED AND WORKING WITH PT/OT AT THIS TIME. CALL LIGHT AND PERSONAL BELONGINGS ARE WITHIN REACH.
--- NOTE | 2024-02-25 10:00 | NUR ---
0900 MEDICATIONS ADMINISTERED PER THE EMAR. FULL ASSESSMENT COMPLETE AND DOCUMENTED IN THE CHART. PATIENT IS ALERT AND ORIENTED TIMES FOUR. PATIENT IS ON 2 L NC. LUNG SOUNDS ARE DIMINISHED THROUGHOUT. WHEEZES AUSCULTATED IN THE BILATERAL LOWER LUNG BENZ. PATIENT WITH PRODUCTIVE COUGH NOTED. CARDIAC WITH NORMAL S1 AND S2 ON AUSCULTATION. PATIENT HR TRACHYCARDIC. RADIAL PULSES ARE STRONG BILATERALLY. 1+ PITTING EDEMA NOTED IN THE BLE. PATIENT IS ON A 60 GRAM CARB DIET. BOWEL TONES ARE ACTIVE IN ALL FOUR QUADRANTS. LAST BM WAS 02/24/24. IV IN THE LAC FLUSHED WITH 10 ML NORMAL SALINE. IV ROCEPHIN IS INFUSING AT THIS TIME. IV DRESSING IS CLEAN, DRY, AND INTACT. SENSATION INTACT WITH NO COMPLAINTS OF NUMBNESS AND TINGLING. PATIENT WITH NO PAIN. GENERALIZED WEAKNESS NOTED. PATIENT STATED NO FURTHER NEEDS AT THIS TIME. CALL LIGHT AND PERSONAL BELONGINGS ARE WITHIN REACH.
--- NOTE | 2024-02-25 10:11 | NUR ---
PATIENT IN BED AT THIS TIME. FABRICATION SPECIALIST CHARTED VITALS AND I&O'S. CALL LIGHT WITHIN REACH, NO FURTHER NEEDS AT THIS TIME.
--- NOTE | 2024-02-25 10:19 | NUR ---
MED REC COMPLETE
--- NOTE | 2024-02-25 10:30 | NUR ---
PATIENT ALERT AND ORIENTED IN BED. STATES HE LIVES ALONE IN HIS APARTMENT. DEMOGRAPHICS VERIFIED. HE HAS A WALKER, ELECTRIC SCOOTER, OXYGEN THROUGH [place] AND A NEBULIZER AT HOME. HE USES HIS SCOOTER FOR TRANSPORT, DOES NOT DRIVE A VEHICLE. STATES HE HAS SOME TIGHTNESS TO HIS BUDGET BUT CAN USUALLY GET BY. NEW PRESCRIPTIONS NEEDED. STATES IF HE IS UNABLE TO AFFORD MEDS HE HAS A FRIEND WHO COULD POTENTIALLY HELP HIM. HE STATES HE WILL NEED A TAXI RIDE WHEN DISCHARGED FROM FACILITY. NO OTHER CM NEEDS AT THIS TIME.
[2024-02-25] MEDS ORDERED: CEFUROXIME500 MG PO (11:03)
[2024-02-25] MEDS ORDERED: AZITHROMYCIN500 MG PO (11:04)
[2024-02-25] MEDS ORDERED: PREDNISONE20 MG PO (11:04)
[2024-02-25] MEDS ORDERED: CIALIS20 MG PO (11:06)
[2024-02-25] MEDS ORDERED: ADVAIR 100-501 EACH INH (11:06)
[2024-02-25] MEDS ORDERED: TRAZODONE HCL50 MG PO (11:07)
--- NOTE | 2024-02-25 11:32 | NUR ---
WENT IN TO TAKE OUT PATIENT IV, PATIENT STATES, "I DID A NO-NO AND IF YOU CAN FIND IT IN YOUR HEART TO FORGIVE ME, I REMOVED MY IV MYSELF." PT WAS GETTING DRESSED AT THIS TIME. IV WAS IN THE GARBAGE AND CATHETER WAS INTACT.
[2024-02-25] MEDS ORDERED: DULERA 100 MCG/13 GM INH (11:45)
[2024-02-25] MEDS ORDERED: PHARMACY RENAL DOSE ADJUSTMENT 1 DOSE MISC PO SCH (12:00)
[2024-02-25] MEDS ORDERED: ALBUTEROL/IPRATROPIUM 3 ML NEB INH SCH (12:00)
[2024-02-25] MEDS ORDERED: BUDESONIDE 0.5 MG/2 ML VIAL INH SCH (20:00)
--- NOTE | 2024-02-25 21:41 | EKG ---
[facility] [address] [facility] [place] [address] Signed Sinus tachycardia Septal infarct (cited on or before 25-DEC-2019) Abnormal ECG When compared with ECG of 01-DEC-2023 15:51, No significant change was found Confirmed by Paxton Neely MD ([id number]) on 02/25/2024 9:41:17 PM Electronically Signed By: PAXTON NEELY DO 02/[id number] PATIENT NAME: TY GAINES VIDAL Electrocardiogram DATE OF : 55 PHYSICIAN: PAXTON NEELY DO REPORT #: [id number] REPORT IS CONFIDENTIAL AND NOT TO BE RELEASED WITHOUT AUTHORIZATION
== END 2024-02-25 12:15 | disposition home or self-care (01) ==
LOC: ED 16:49 → MS 16:50
PROVIDERS: Emergency Medicine; ADMIT Student in an Organized Health Care Education/Training Program; ATTEND Student in an Organized Health Care Education/Training Program
DX: J44.1 Chronic obstructive pulmonary disease with (acute) exacerbation (principal); J43.9 Emphysema, unspecified; J96.21 Acute and chronic respiratory failure with hypoxia; I11.0 Hypertensive heart disease with heart failure; I50.9 Heart failure, unspecified; E11.9 Type 2 diabetes mellitus without complications; F32.9 Major depressive disorder, single episode, unspecified; G47.33 Obstructive sleep apnea (adult) (pediatric); N40.0 Benign prostatic hyperplasia without lower urinary tract symptoms; K21.9 Gastro-esophageal reflux disease without esophagitis; G47.00 Insomnia, unspecified; E66.01 Morbid (severe) obesity due to excess calories; Z68.43 Body mass index [BMI] 50.0-59.9, adult; Z87.891 Personal history of nicotine dependence; Z79.899 Other long term (current) drug therapy; Z91.030 Bee allergy status
CPT/HCPCS: 36415; 71045; 80048; 80053; 81001; 82803; 83036; 83735; 83880; 84484; 85025; 87502; 93005; 93010; 94640; 94644; 94760; 96372; 96375; 97161; 97165; A9270; G0378; J0360; J0696; J1650; J1815; J2060; J7512; U0002